=== PATIENT | female | born 1950 | race Caucasian/White ===

== ENCOUNTER → 2019-10-30 08:26 | Outpatient (BNVA) | payer MEDICARE, OTHER, SELFPAY | PROVIDERS: Family Provider Nurse Practitioner; PCP Nurse Practitioner; Visit Provider Nurse Practitioner | DX: E11.65 Type 2 diabetes mellitus with hyperglycemia (principal); Z79.4 Long term (current) use of insulin; E11.9 Type 2 diabetes mellitus without complications; N39.0 Urinary tract infection, site not specified | CPT/HCPCS: 80053; 80061; 81003; 82044; 83036 ==

== ENCOUNTER → 2020-01-27 09:07 | Outpatient (BNVA) | payer MEDICARE, OTHER, SELFPAY | PROVIDERS: Family Provider Nurse Practitioner; PCP Nurse Practitioner; Visit Provider Nurse Practitioner | DX: E11.65 Type 2 diabetes mellitus with hyperglycemia (principal); Z79.4 Long term (current) use of insulin | CPT/HCPCS: 80053; 81000; 83036 ==

== ENCOUNTER → 2020-06-07 11:47 | Outpatient (BNVA) | payer MEDICARE, OTHER, SELFPAY | PROVIDERS: Family Provider Nurse Practitioner; PCP Nurse Practitioner; Visit Provider Nurse Practitioner | DX: E11.65 Type 2 diabetes mellitus with hyperglycemia (principal); J98.01 Acute bronchospasm; Z79.4 Long term (current) use of insulin; Z79.899 Other long term (current) drug therapy | CPT/HCPCS: 80053; 80061; 81003; 83036; 87077; 87086; 87184 ==

== ENCOUNTER → 2020-08-23 08:13 | Outpatient (BNVA) | payer MEDICARE, OTHER, SELFPAY | PROVIDERS: Family Provider Nurse Practitioner; PCP Nurse Practitioner; Visit Provider Nurse Practitioner | DX: E11.65 Type 2 diabetes mellitus with hyperglycemia (principal); Z79.4 Long term (current) use of insulin; E78.2 Mixed hyperlipidemia; J98.01 Acute bronchospasm | CPT/HCPCS: 80053; 80061; 81000; 83036; 85025 ==

== ENCOUNTER → 2021-04-10 11:13 | Outpatient (BNVA) | payer MEDICARE, SELFPAY | PROVIDERS: Family Provider Nurse Practitioner; PCP Nurse Practitioner; Visit Provider Nurse Practitioner | DX: E11.65 Type 2 diabetes mellitus with hyperglycemia (principal); Z79.4 Long term (current) use of insulin; I10 Essential (primary) hypertension; E78.2 Mixed hyperlipidemia | CPT/HCPCS: 80053; 80061; 81000; 83036; 84443; 85025 ==

== ENCOUNTER → 2021-07-05 16:15 | Outpatient (BNVA) | payer MEDICARE, SELFPAY | PROVIDERS: Family Provider Nurse Practitioner; PCP Nurse Practitioner; Visit Provider Nurse Practitioner | DX: E11.65 Type 2 diabetes mellitus with hyperglycemia (principal); Z79.4 Long term (current) use of insulin | CPT/HCPCS: 80053; 80061; 81000; 83036; 84443; 85025 ==

== ENCOUNTER → 2022-01-02 09:38 | Outpatient (BNVA) | payer MEDICARE, SELFPAY | PROVIDERS: Family Provider Nurse Practitioner; PCP Nurse Practitioner; Visit Provider Nurse Practitioner | DX: E11.65 Type 2 diabetes mellitus with hyperglycemia (principal); E78.2 Mixed hyperlipidemia; J98.01 Acute bronchospasm; I10 Essential (primary) hypertension; Z79.4 Long term (current) use of insulin | CPT/HCPCS: 80053; 80061; 81000; 83036; 84443; 85025 ==

== ENCOUNTER → 2022-02-26 10:18 | Outpatient (BNVA) | payer MEDICARE, SELFPAY | PROVIDERS: Family Provider Nurse Practitioner; PCP Nurse Practitioner; Visit Provider Nurse Practitioner | DX: I10 Essential (primary) hypertension (principal); E11.65 Type 2 diabetes mellitus with hyperglycemia; Z79.4 Long term (current) use of insulin; J98.01 Acute bronchospasm; E78.2 Mixed hyperlipidemia; F41.9 Anxiety disorder, unspecified; E11.69 Type 2 diabetes mellitus with other specified complication; E66.9 Obesity, unspecified | CPT/HCPCS: 80053; 81000; 83036 ==

== ENCOUNTER → 2022-07-16 15:24 | Outpatient (BNVA) | payer MEDICARE, SELFPAY | PROVIDERS: Family Provider Nurse Practitioner; PCP Nurse Practitioner; Visit Provider Nurse Practitioner | DX: E11.65 Type 2 diabetes mellitus with hyperglycemia (principal); Z79.4 Long term (current) use of insulin; F41.9 Anxiety disorder, unspecified; I10 Essential (primary) hypertension; E78.2 Mixed hyperlipidemia; R46.81 Obsessive-compulsive behavior | CPT/HCPCS: 80053; 80061; 81000; 83036; 83721; 84443 ==

== ENCOUNTER → 2022-10-03 08:42 | Outpatient (BNVA) | payer MEDICARE, SELFPAY | PROVIDERS: Family Provider Nurse Practitioner; PCP Nurse Practitioner; Visit Provider Nurse Practitioner | DX: E11.65 Type 2 diabetes mellitus with hyperglycemia (principal); Z79.4 Long term (current) use of insulin | CPT/HCPCS: 80053; 80061; 81000; 82043; 83036; 84443 ==

== ENCOUNTER → 2022-12-26 14:54 | Outpatient (BNVA) | payer MEDICARE, SELFPAY | PROVIDERS: Family Provider Nurse Practitioner; PCP Nurse Practitioner; Visit Provider Nurse Practitioner | DX: E11.65 Type 2 diabetes mellitus with hyperglycemia (principal); Z79.4 Long term (current) use of insulin | CPT/HCPCS: 80053; 81000; 83036 ==

== ENCOUNTER → 2023-03-12 13:52 | Outpatient (BNVA) | payer MEDICARE, SELFPAY | PROVIDERS: Family Provider Nurse Practitioner; PCP Nurse Practitioner; Visit Provider Nurse Practitioner | DX: F41.9 Anxiety disorder, unspecified (principal); I10 Essential (primary) hypertension; E11.65 Type 2 diabetes mellitus with hyperglycemia; E78.2 Mixed hyperlipidemia; Z79.4 Long term (current) use of insulin; J98.01 Acute bronchospasm | CPT/HCPCS: 80053; 81000; 83036 ==

== ENCOUNTER 2023-08-05 18:11 | Inpatient (IN) | payer MEDICARE, SELFPAY ==
[2023-08-05] VITALS (7 sets, daily range): BP systolic 104–134; BP diastolic 58–89; PULSE 68–116; RESP 14–21; TEMP 36.6; O2SAT 95–100; BMI 30.2
--- NOTE | 2023-08-05 18:43 | W.ED.GENADLT ---
HPI - General Adult General: Chief complaint: General Medical Stated complaint: high bp and blood sugar Time Seen by Provider: 08/05/23 18:35 History of Present Illness: 72-year-old female presents emerged part with her family members. Family member states the patient initially presents for elevated blood pressure and elevated blood glucose levels. Family members state that the patient is a special needs patient and she is cared for by her 92-year-old mother. The patient advised her mother that she is not feeling well yesterday they did contact the patient's primary care provider and advised them that the patient's blood glucose and blood pressure is both elevated and per the patient's family member they were advised to give her additional doses of insulin. I rechecked the blood glucose yesterday and the blood glucose level had improved significantly but today has returned to an elevated level. Associated symptoms: Reports malaise Review of Systems General: Reports: 10 or more systems reviewed and unremarkable except in HPI and below Const: Reports: fatigue and malaise Endo: Reports: other (Elevated blood glucose level) PFSH ED PFSH: Medical History Anxiety Bronchospasm Cerebral palsied Diabetes mellitus with hyperglycemia, with long-term current use of insulin Essential (primary) hypertension Mixed hyperlipidemia Neurodevelopmental disorder Type 2 diabetes mellitus with obesity Surgical History History of hysterectomy Family History Brother Diabetes Hypertension Mother Hypertension Denies family history of Bleeding disorder Social History Smoking and tobacco/nicotine status: never used tobacco/nicotine Second hand smoke exposure: No Alcohol intake: never Substance/Drug Use: never Adopted: No Caregiver/support person: Yes Lives independently: No Household members: family Housing: House Marital status: Single Number of children: 0 service: No Current occupational status: disabled Pets and animals: Yes Do you think of yourself as: Straight/Heterosexual Current gender identity: Female Physical Exam Narrative: EXAM NARRATIVE: Constitutional: the patient appears well nourished and of normal development. Vital signs as documented. No acute distress at present. Alert and oriented-to person-developmentally delayed per the family members. She does appear to be at her baseline mental status per the family Head, eyes, ears, nose, mouth, throat: Normocephalic, atraumatic. Pupils-equal, round, reactive to light. No scleral icterus. Normal-appearing external ears. Normal appearing nasal turbinates, no drainage. No obvious oral lesions, posterior oropharynx without erythema or exudates. Neck: Supple, trachea is midline, no lymphadenopathy, no jugular venous distension, thyromegaly, or carotid bruits. Carotid upstrokes are brisk bilaterally. Lungs: clear to auscultation to all lung meadows. Symmetrical rise and fall of chest, no obvious signs of increased work of breathing at present. Cardiac: Regular rate and rhythm, positive S1, S2. No murmurs, rubs or gallops that I can appreciate Abdomen: Soft, non-tender to palpation, normal active bowel sounds to all quadrants. No palpable masses, no organomegaly and abdominal bruits. Extremities: 2+ pulses in the upper extremities that are equal bilaterally, 2+ pulses in the lower extremities that are equal bilaterally. Right lower leg does appear to be with 2+ lower extremity edema and obvious cellulitis to the right lower leg. There does appear to be a healing scar to the right anterior lower leg moves all extremities well, sensation to all extremities are noted. Skin: Warm, dry, intact. Course Vital Signs: Vital signs: Vital Signs Temperature 97.8 F 08/05/23 18:21 Pulse Rate 116 H 08/05/23 20:40 Respiratory Rate 16 08/05/23 20:40 Blood Pressure 134/89 08/05/23 20:40 Pulse Oximetry 98 08/05/23 20:40 Oxygen Delivery Me thod Room Air 08/05/23 20:40 MDM - General Adult Medical Decision Making Physical exam completed and documented, I will obtain a CBC, CMP, serum ketones as I suspect her elevated blood glucose level may be putting her at risk for diabetic ketoacidosis which is also exacerbated by her right lower leg cellulitis. Medical Records I reviewed the patient's medical records. Lab Data I reviewed the patient's lab results. 08/05/23 19:00 08/05/23 19:00 Radiology Impressions Chest X-Ray 08/05/23 18:48 IMPRESSION: No acute findings. Laboratory Results WBC 17.77 10^3/uL (3.29-11.43) H 08/05/23 19:00 RBC 4.85 10^6/uL (3.85-5.65) 08/05/23 19:00 Hgb 14.50 g/dL (11.27-16.99) 08/05/23 19:00 Hct 43.2 % (36-47) 08/05/23 19:00 MCV 89.1 fl (85-98) 08/05/23 19:00 MCH 29.9 pg (27-33) 08/05/23 19:00 MCHC 33.6 g/dL (30-55) 08/05/23 19:00 RDW 12.7 % (12.1-15.1) 08/05/23 19:00 Plt Count 310 10^3/cmm (157-399) 08/05/23 19:00 MPV 10.0 fL (7.4-10.4) 08/05/23 19:00 Neut % (Auto) 82.6 % 08/05/23 19:00 Lymph % (Auto) 5.0 % 08/05/23 19:00 [place] % (Auto) 11.3 % 08/05/23 19:00 Eos % (Auto) 0.0 % 08/05/23 19:00 Baso % (Auto) 0.2 % 08/05/23 19:00 Neut # (Auto) 14.70 10^3/uL (1.8-7.7) H 08/05/23 19:00 Lymph # (Auto) 0.9 10^3/uL (0.8-4.8) 08/05/23 19:00 [place] # (Auto) 2.0 10^3/uL (0.2-0.9) H 08/05/23 19:00 Eos # (Auto) 0.0 10^3/uL (0.0-0.8) 08/05/23 19:00 Baso # (Auto) 0.0 10^3/uL (0.0-0.1) 08/05/23 19:00 Nucleated RBC % (auto) 0 % 08/05/23 19:00 Nucleated RBCs # 0.0 /100WBC 08/05/23 19:00 Sodium 129 mmol/L (136-145) L 08/05/23 19:00 Potassium 3.7 mmol/L (3.5-5.1) 08/05/23 19:00 Chloride 89 mmol/L (98-107) L 08/05/23 19:00 Carbon Dioxide 13 mmol/L (22-29) L 08/05/23 19:00 Anion Gap 30.7 (5-19) H 08/05/23 19:00 BUN 36 mg/dL (8-23) H 08/05/23 19:00 Creatinine 1.2 mg/dL (0.5-0.9) H 08/05/23 19:00 GFR Calculation Not Reportable 08/05/23 19:00 Glucose 453 mg/dL (65-115) H 08/05/23 19:00 POC Glucose 404 mg/dL (70-110) H 08/05/23 18:44 Calculated Osmolality 296 mOsm/kg (285-295) H 08/05/23 19:00 Lactic Acid 2.0 mmol/L (0.5-2.2) 08/05/23 19:00 Calcium 11.3 mg/dL (8.5-10.5) H 08/05/23 19:00 Magnesium 2.3 mg/dL (1.7-2.3) 08/05/23 19:00 Total Bilirubin 0.3 mg/dL (0.15-1.2) 08/05/23 19:00 AST 10 U/L (0-32) 08/05/23 19:00 ALT 15 U/L (0-33) 08/05/23 19:00 Alkaline Phosphatase 158 U/L (35-105) H 08/05/23 19:00 Total Protein 8.4 g/dL (6.6-8.7) 08/05/23 19:00 Albumin 3.9 g/dL (3.5-5.2) 08/05/23 19:00 Globulin 4.5 g/dL (1.3-4.6) 08/05/23 19:00 Procalcitonin 7.49 ng/mL (0-0.5) H 08/05/23 19:00 Urine Color Yellow (Yellow) 08/05/23 21:41 Urine Appearance Sl hazy (CLEAR) A 08/05/23 21:41 Urine pH 5 (5-7) 08/05/23 21:41 Ur Specific [place] 1.020 (1.005-1.030) 08/05/23 21:41 Urine Protein 1+ (Negative) H 08/05/23 21:41 Urine Glucose (UA) 4+ (Normal) H 08/05/23 21:41 Urine Ketones 3+ (Negative) H 08/05/23 21:41 Urine Blood 2+ (Negative) H 08/05/23 21:41 Urine Nitrate Negative (Negative) 08/05/23 21:41 Urine Bilirubin 1+ (Negative) H 08/05/23 21:41 Urine Urobilinogen Norm mg/dL (Negative) 08/05/23 21:41 Ur Leukocyte Esterase Trace (Negative) H 08/05/23 21:41 Urine RBC 0-4 /hpf (0-2) H 08/05/23 21:41 Urine WBC 0-4 /hpf (0-5) H 08/05/23 21:41 Ur Squamous Epith Cells None /hpf (0-5) 08/05/23 21:41 Ur Transition Epith Cell 0-4 /hpf 08/05/23 21:41 Amorphous Sediment Not Reportable 08/05/23 21:41 Urine Bacteria 1+ /hpf (NONE) H 08/05/23 21:41 Coarse Granular Casts 5-10 /lpf H 08/05/23 21:41 Urine Mucus 1+ /hpf 08/05/23 21:41 Serum Ketones Positive (Negative) H 08/05/23 19:00 All radiology interpretation(s) finalized by discharge Critical Care Time Critical Care Time: Critical Care Time: Yes Total Critical Care Time: 60 Attestation: The patients was emergently evaluated as this patient's presentation and case had a high probability of a clinically significant, sudden, or life threatening deterioration of this patient's initial critical presentation or condition which required my full and direct attention, intervention and personal management. Discharge Plan Discharge Patient Disposition: Admitted As Inpatient Clinical Impression: Diabetic keto-acidosis, Diabetes mellitus with hyperglycemia, with long-term current use of insulin, Cellulitis of leg, right, Acute hyponatremia Condition: Stable Prescriptions: No Action mupirocin 2 % ointment 1 applic topical BID Qty: 22 0RF (DME) nebulizers Misc See Rx Instructions .ROUTE .MEDSUPPLY Qty: 1 0RF Rx Instructions: As directed bupropion HCl [Wellbutrin XL] 150 mg tablet extended release 24 hr 150 mg PO QAM Qty: 30 2RF chlorthalidone 25 mg tablet 25 mg PO DAILY Qty: 90 0RF Farxiga 10 mg tablet 10 mg PO DAILY Qty: 30 2RF escitalopram oxalate [Lexapro] 5 mg tablet 5 mg PO .at bedtime Qty: 90 0RF fenofibrate nanocrystallized [Tricor] 145 mg tablet 145 mg PO DAILY Qty: 90 0RF Levemir U-100 Insulin 100 unit/mL solution See Rx Instructions SUBCUT DAILY Qty: 30 2RF Rx Instructions: 100U subcutaneously daily; insulin lispro [Humalog U-100 Insulin] 100 unit/mL solution 10 unit SUBCUT TID Qty: 10 2RF lisinopril 40 mg tablet 40 mg PO DAILY Qty: 30 2RF metformin 1,000 mg tablet 1,000 mg PO BID Qty: 180 0RF metoprolol succinate [Toprol XL] 50 mg tablet extended release 24 hr 50 mg PO DAILY Qty: 90 0RF Mounjaro 7.5 mg/0.5 mL pen injector 7.5 mg SUBCUT .weekly Qty: 2 0RF albuterol sulfate 2.5 mg /3 mL (0.083 %) solution for nebulization 2.5 mg INHALATION TID PRN (Reason: bronchospasm) Qty: 300 5RF albuterol sulfate [Ventolin HFA] 90 mcg/actuation HFA aerosol inhaler 2 puff INHALATION Q6H PRN (Reason: shortness of breath or wheezing) Qty: 6.7 0RF terbinafine HCl 1 % aerosol,spray 1 spray topical .at bedtime Qty: 125 0RF clonidine HCl 0.1 mg tablet 0.1 mg PO BID Qty: 60 2RF (DME) FreeStyle Andreia 2 [place] Misc See Rx Instructions .ROUTE .MEDSUPPLY Qty: 1 0RF Rx Instructions: use 4-6 times day (DME) FreeStyle Andreia 2 Sensor Kit See Rx Instructions .ROUTE .MEDSUPPLY Qty: 2 11RF Rx Instructions: change every 14 days Referrals: Dunia Brizuela, FARM OPERATIONS TECHNICAL DIRECTOR-C [Primary Care Provider] - Coding Level of Care Code ED Generator Rebuilder for Chg Fwd
--- NOTE | 2023-08-05 18:48 | XRR_ITS ---
PROCEDURE INFORMATION: Exam: XR Chest Exam date and time: 08/05/2023 6:59 PM Age: 72 years old Clinical indication: Other: High BP; Additional info: Weakness/fatigue TECHNIQUE: Imaging protocol: Radiologic exam of the chest. Views: 1 view. COMPARISON: No relevant prior studies available. FINDINGS: Lungs: No consolidation. Pleural spaces: No large pleural effusion. No pneumothorax. Heart/Mediastinum: Unremarkable cardiomediastinal silhouette. Bones/joints: No acute abnormality. XR/XR chest 1V portable [id number] IMPRESSION: No acute findings.
[2023-08-05 19:00] LABS: Glucose Point of Care 404 mg/dL (70-110)
[2023-08-05 19:10] LABS: Basophils % 0.2 %; Hematocrit 43.2 % (36-47); Lymphocytes # 0.9 10^3/uL (0.8-4.8); Mean Corpuscular HGB Conc 33.6 g/dL (30-55); Mean Corpuscular Hemoglobin 29.9 pg (27-33); Mean Corpuscular Volume 89.1 fl (85-98); Monocytes % 11.3 %; Neutrophils % 82.6 %; Nucleated Red Blood Cells % 0 %; Platelet Count 310 10^3/cmm (157-399); Red Blood Count 4.85 10^6/uL (3.85-5.65); Red Cell Distribution Width 12.7 % (12.1-15.1); White Blood Count 17.77 10^3/uL (3.29-11.43)
[2023-08-05] MEDS: sodium chloride 0.9% 1,000 ML 999 ML IV ×2 (19:12→20:31)
[2023-08-05 19:30] LABS: Ketone (Acetest) Serum Positive (Negative)
[2023-08-05 19:42] LABS: Alanine Aminotransferase 15 U/L (0-33); Albumin Level 3.9 g/dL (3.5-5.2); Alkaline Phosphatase 158 U/L (35-105); Anion Gap 30.7 (5-19); Aspartate Amino Transferase 10 U/L (0-32); Blood Urea Nitrogen 36 mg/dL (8-23); Calcium 11.3 mg/dL (8.5-10.5); Carbon Dioxide 13 mmol/L (22-29); Chloride 89 mmol/L (98-107); Globulin 4.5 g/dL (1.3-4.6); Glucose 453 mg/dL (65-115); Magnesium 2.3 mg/dL (1.7-2.3); Osmolality Calculated 296 mOsm/kg (285-295); Potassium 3.7 mmol/L (3.5-5.1); Sodium 129 mmol/L (136-145); Total Bilirubin 0.3 mg/dL (0.15-1.2); Total Protein 8.4 g/dL (6.6-8.7)
[2023-08-05 19:48] LABS: Procalcitonin 7.49 ng/mL (0-0.5)
[2023-08-05] MEDS: cefTRIAXone 1,000 MG in sodium chloride 0.9% (plus) 50 ML 100 MG IV (20:31)
[2023-08-05] MEDS: insulin regular-human 100 units/1 mL 10 UNIT IVP (20:32)
[2023-08-05 22:01] LABS: Add Urine Microscopic? YES; Bilirubin Urine 1+ (Negative); Blood Urine 2+ (Negative); Glucose Urine UA 4+ (Normal); Ketones Urine 3+ (Negative); Leukocyte Esterase Urine Trace (Negative); Nitrate Urine Negative (Negative); Protein Urine 1+ (Negative); Urine Appearance SL Hazy (CLEAR); Urine Color Yellow (Yellow); Urobilinogen Urine Norm (Negative); pH Urine 5 (5-7)
[2023-08-05 22:02] LABS: Bacteria Urine 1+ /hpf; Mucus Urine 1+ /hpf; RBC Urine 0-4 /hpf (0-2); Transitional Epi Cells Urine 0-4 /hpf; WBC Urine 0-4 /hpf (0-5)
[2023-08-05] MEDS: ondansetron 2 mg/ML SDV 2 mL 4 MG IVP (22:02)
[2023-08-05 22:03] LABS: Add Urine Culture? No
[2023-08-05 22:19] LABS: Glucose Point of Care 356 mg/dL (70-110)
--- NOTE | 2023-08-05 23:04 | P.HP_ITS ---
Providers/Chief Complaint 2 Primary Care Provider: MARILYN Ramirez Chief Complaint: high bp and blood sugar History of Present Illness Dhaar Harvey is a 72 year old female with cerebral palsy, Neurodevelopmental disorder, Type 2 diabetes mellitus, HTN , Brought to the emergency room by her 94-year-old mother today due to High blood sugars at home over the past 3 days. Mother states that patient has been feeling unwell, nauseous, has had a poor appetite. She denies any fever or chills. Patient has chronic lower extremity edema but her right lower extremity is currently more swollen and warm erythematous compared to the left side. There is no complaints of any URI type symptoms, cough dyspnea or expectoration. There has been no recent change in her insulin dosing. Patient typically gives herself her insulin injections. Review of Systems 2 General: Reports: ROS unobtainable due to medical condition Medications/Allergies Home Medications Medication Instructions Recorded Confirmed Last Taken Type mupirocin 2 % topical ointment 1 applic topical BID #22 grams 01/02/22 03/12/23 Unknown Rx nebulizers #1 ea 01/02/22 03/12/23 Unknown Rx flash glucose scanning reader #1 ea 10/03/22 03/12/23 Unknown Rx (FreeStyle Andreia 2 [place]) flash glucose sensor (FreeStyle #2 ea 10/03/22 03/12/23 Unknown Rx Andreia 2 Sensor kit) albuterol sulfate 2.5 mg/3 mL 2.5 mg (3 mL) inhalation TID PRN 03/12/23 03/12/23 Unknown Rx (0.083 %) solution for nebulization bronchospasm #300 mL albuterol sulfate 90 mcg/actuation 2 puff inhalation Q6H PRN 03/12/23 03/12/23 Unknown Rx aerosol inhaler (Ventolin HFA) shortness of breath or wheezing #6.7 grams bupropion HCl 150 mg 24 hr tablet, 150 mg PO QAM #30 tabs 03/12/23 03/12/23 Unknown Rx extended release (Wellbutrin XL) chlorthalidone 25 mg tablet 25 mg PO DAILY #90 tabs 03/12/23 03/21/23 Unknown Rx clonidine HCl 0.1 mg tablet 0.1 mg PO BID #60 tabs 03/12/23 03/12/23 Unknown Rx dapagliflozin propanediol 10 mg 10 mg PO DAILY #30 tabs 03/12/23 03/12/23 Unknown Rx tablet (Farxiga) escitalopram oxalate 5 mg tablet 5 mg PO .at bedtime #90 tabs 03/12/23 03/12/23 Unknown Rx (Lexapro) fenofibrate nanocrystallized 145 145 mg PO DAILY #90 tabs 03/12/23 03/12/23 Unknown Rx mg tablet (Tricor) insulin detemir U-100 100 unit/mL See Rx Instructions SUBCUT DAILY 03/12/23 03/12/23 Unknown Rx subcutaneous solution (Levemir #30 mL U-100 Insulin) insulin lispro 100 unit/mL 10 unit (0.1 mL) SUBCUT TID #10 mL 03/12/23 03/12/23 Unknown Rx subcutaneous solution (Humalog U-100 Insulin) lisinopril 40 mg tablet 40 mg PO DAILY #30 tabs 03/12/23 03/12/23 Unknown Rx metformin 1,000 mg tablet 1,000 mg PO BID #180 tabs 03/12/23 03/12/23 Unknown Rx metoprolol succinate 50 mg 50 mg PO DAILY #90 tabs 03/12/23 03/12/23 Unknown Rx tablet,extended release 24 hr (Toprol XL) terbinafine HCl 1 % topical spray 1 spray topical .at bedtime #125 mL 03/12/23 03/12/23 Unknown Rx tirzepatide 7.5 mg/0.5 mL 7.5 mg (0.5 mL) SUBCUT .weekly #2 03/12/23 03/12/23 Unknown Rx subcutaneous pen injector mL (Mounjaro) Allergies Allergy/AdvReac Type Severity Reaction Status Date / Time No Known Allergies Allergy Verified 08/05/23 18:14 PFSH Acute 2 PFSH: Medical History Diabetes mellitus with hyperglycemia, with long-term current use of insulin Essential (primary) hypertension Type 2 diabetes mellitus with obesity Bronchospasm Anxiety Mixed hyperlipidemia Cerebral palsied Neurodevelopmental disorder Surgical History History of hysterectomy Family History Brother Diabetes Hypertension Mother Hypertension Denies family history of Bleeding disorder Social History Smoking and tobacco/nicotine status: never used tobacco/nicotine Second hand smoke exposure: No Alcohol intake: never Substance/Drug Use: never Adopted: No Caregiver/support person: Yes Lives independently: No Household members: family Housing: House Marital status: Single Number of children: 0 service: No Current occupational status: disabled Pets and animals: Yes Do you think of yourself as: Straight/Heterosexual Current gender identity: Female Vitals/I&O/Wt Last Vital Signs Temp 97.8 F 08/05/23 18:21 Pulse 115 H 08/05/23 22:05 Resp 21 H 08/05/23 22:05 BP 109/58 08/05/23 22:33 Pulse Ox 98 08/05/23 22:33 O2 Del Method Room Air 08/05/23 22:33 08/05/23 08/05/23 08/06/23 14:59 22:59 06:59 Intake Total 1050 / 1050 Balance 1050 / 1050 Weight last 48 hrs Weight 74.843 kg Physical Exam 2 Narrative: General: No acute distress, AO x3 HEENT: PERRLA, pupils bilaterally equal and reactive, pallors not present Chest: Normal vesicular breath sounds, no added sounds, equal good air entry bilaterally CVS: S1-S2 regular, no murmurs, no tachycardia, no gallops, no rubs Abdomen: Soft, nontender, no organomegaly, bowel sounds present Neuro: No focal deficits, no facial deformity Extremities: RLE cellulitis Data 08/05/23 19:00 08/06/23 01:06 Other Labs: [facility] [address] [place] [address] XRay Report Signed Patient: Dhara Harvey Unit #: [id number] : 1950 Age/Sex: 72 / F ADM Date: 08/05/23 Loc: ER Room/Bed: Attending Dr: Ordering Provider/Ordering MD: Mandeep Fields MD Date of Service: 08/05/23 Procedure(s): XR chest 1V portable [id number] Accession Number(s): [id number] Report Number: [id number] PROCEDURE INFORMATION: Exam: XR Chest Exam date and time: 08/05/2023 6:59 PM Age: 72 years old Clinical indication: Other: High BP; Additional info: Weakness/fatigue TECHNIQUE: Imaging protocol: Radiologic exam of the chest. Views: 1 view. COMPARISON: No relevant prior studies available. FINDINGS: Lungs: No consolidation. Pleural spaces: No large pleural effusion. No pneumothorax. Heart/Mediastinum: Unremarkable cardiomediastinal silhouette. Bones/joints: No acute abnormality. XR/XR chest 1V portable [id number] IMPRESSION: No acute findings. A&P Assessment and plan (1) Diabetic keto-acidosis: Diabetic ketoacidosis: Start patient on insulin drip as per DKA/HHS protocol with target blood sugars between 100-130 normal saline at 100cc/h. We will switch to D5 NS once blood sugar less than 250. Monitor BMP every 4 hours. Once potassium less than 4 we will add 20 mg of potassium to IV fluids. Monitor saturations. Maintain over 90%. Transition to sliding scale and long-acting insulin once anion gap resolves. Qualifiers: Diabetes mellitus complication detail: without coma Diabetes mellitus type: type 1 Qualified Code(s): E10.10 - Type 1 diabetes mellitus with ketoacidosis without coma (2) Cellulitis of leg, right: Start empiric abx treatment with Ceftriaxone and vancomycin check blood culture monitor for response Plan Dvt ppx : lovenox 40mg s/c Full code Attestations 2 Medical Necessity Statement*: Globin 2 midnight admission is anticipated for above defined care Coding Level of Care Code Acute Code for Chg Fwd High MDM includes number and complexity of problems actively addressed during encounter, amount and/or complexity of data reviewed/ordered and described risk of complication, morbidity or mortality of management as documented Diagnoses Diabetic keto-acidosis E10.10 Diabetes mellitus complication detail: without coma Diabetes mellitus type: type 1 Cellulitis of leg, right L03.115
[2023-08-06] VITALS (49 sets, daily range): BP systolic 71–130; BP diastolic 42–83; PULSE 72–128; RESP 14–23; TEMP 36.3–37.3; O2SAT 84–100; BMI 28.8
--- NOTE | 2023-08-06 01:00 | PC.NURSE ---
[facility] @ 0100. Rounding with patient in room, she is up to bedside commode with 2 person assist. Pt still wearing regular clothing and tells this nurse when asked that she will not get a gown on. I want to wear my clothes . Pt asked for food and something to drink. Pt and her mother have been informed that she is NPO. I have explained what NPO means to the patient and mother.
[2023-08-06] MEDS: enoxaparin 40 mg/0.4 mL Syringe SUBCUT (01:33)
[2023-08-06 01:35] LABS: Glucose Point of Care 300 mg/dL (70-110)
[2023-08-06 01:45] LABS: Blood Urea Nitrogen 39 mg/dL (8-23); Calcium 10.6 mg/dL (8.5-10.5); Carbon Dioxide 10 mmol/L (22-29); Chloride 99 mmol/L (98-107); Glucose 314 mg/dL (65-115); Osmolality Calculated 299 mOsm/kg (285-295); Sodium 134 mmol/L (136-145)
[2023-08-06 01:47] LABS: Anion Gap 28.9 (5-19); Potassium 3.9 mmol/L (3.5-5.1)
[2023-08-06 02:25] LABS: Glucose Point of Care 314 mg/dL (70-110)
--- NOTE | 2023-08-06 02:49 | PC.NURSE ---
Addendum entered by Flor Palma RN 08/06/23 02:59: Pt mother states the pt had a legal paper listing her guardian, but that guardian recently . Pt mother states she does not have a phone or phone number, but she had a phone in her hand and stated Olya is the only person in the phone . Right leg of pt is very red and warm. Pt mother states pt has not had a red leg or any injury. Mother stated pt leg has only been that red for a day. Mother denies fever or other flu-like symptoms, but then stated pt is breathing that way because she has a snotty nose . Mother also told this nurse that pt normally walks without any assistive devices, but today she was unable to get up without assistance. ER nurse stated it took 2 nurses to assist pt to bedside commode and pt was very unstable. Mother states pt receives no home health help, but mother uses TWO canes to ambulate herself, and might have trouble remembering things. Mother repeatedly told this nurse the same information during admission assessment (mother stated we eat out a lot 4 times in a 10 minute period). Original Note: Upon arrival to unit, pt was visibly anxious and unwilling to change out of her clothing and into a gown. Pt is intellectually disabled and speaks more as if she is a small child - in short sentences or one to two word phrases. Pt mother answered admission questions. Pt mother was brought in to pt room by wheelchair. Pt mother seemed a bit confused herself. Pt mother states she is primary and sole registration representative of pt. Pt has small scuff on right cheek. Mother states pt tripped in a parking lot and is unable to catch herself
[2023-08-06] MEDS: insulin regular-human 250 UNIT in sodium chloride 0.9% 250 ML 7.07 UNIT IV (02:54)
[2023-08-06 03:04] LABS: Glucose Point of Care 314 mg/dL (70-110)
[2023-08-06 04:11] LABS: Glucose Point of Care 249 mg/dL (70-110)
[2023-08-06] MEDS: vancomycin 1,000 MG in sodium chloride 0.9% 250 ML 250 MG IV (04:31)
[2023-08-06 05:02] LABS: Glucose Point of Care 247 mg/dL (70-110)
[2023-08-06 05:02] LABS: Glucose Point of Care 253 mg/dL (70-110)
[2023-08-06 05:31] LABS: Anion Gap 21.4 (5-19); Blood Urea Nitrogen 37 mg/dL (8-23); Calcium 10.1 mg/dL (8.5-10.5); Carbon Dioxide 15 mmol/L (22-29); Chloride 104 mmol/L (98-107); Glucose 279 mg/dL (65-115); Osmolality Calculated 303 mOsm/kg (285-295); Potassium 3.4 mmol/L (3.5-5.1); Sodium 137 mmol/L (136-145)
[2023-08-06] MEDS: dextrose 5%-sod chloride 0.9% 1,000 ML 100 ML IV (05:43)
[2023-08-06 05:45] LABS: Estmated Average Glucose 407; Hemoglobin A1C 15.8 % (4.0-6.0)
[2023-08-06 05:56] LABS: Glucose Point of Care 222 mg/dL (70-110)
[2023-08-06 07:37] LABS: Glucose Point of Care 182 mg/dL (70-110)
--- NOTE | 2023-08-06 08:02 | PC.PHAR ---
pt and guardian both state pt is taking no other medications except the insulins. pt has had several diabetes medications and bp medicines prescribed in the past. 08/06/23
--- NOTE | 2023-08-06 08:15 | USCV_ITS ---
Dhara Harvey Age: 72 Gender: F : 1950 Exam Date: 08/06/2023 08:50 Ordering Phys: Eyal Ariza MD Technologist: JEAN-PAUL Exam Location: [facility] [place] Indication: SWELLING AND DISCOLORATION HISTORY: Lower extremity swelling. Lower extremity edema. PROCEDURES: Venous duplex imaging was performed in bilateral lower extremities. The following venous structures were evaluated: common femoral vein, profunda vein, proximal portion of the greater saphenous vein, superficial femoral vein, and the popliteal vein. In addition, the posterior tibial and peroneal trunk were evaluated. Serial compression, augmentation maneuvers, and spectral Doppler flow evaluation were performed. FINDINGS: No evidence of DVT seen in any vessel visualized at this time. CONCLUSIONS No evidence of right lower extremity DVT. No evidence of left lower extremity DVT. Michael Burgess MD (Electronically Signed) Final Date: 06 August 2023 09:19 S
[2023-08-06] MEDS: lidocaine 1% 5 ML in potassium chloride premix 100 ML 26.25 ML IV (08:36)
[2023-08-06] MEDS: pantoprazole DR 40 mg Tablet PO (08:43)
[2023-08-06 08:57] LABS: Anion Gap 18.1 (5-19); Blood Urea Nitrogen 32 mg/dL (8-23); Calcium 10.2 mg/dL (8.5-10.5); Carbon Dioxide 16 mmol/L (22-29); Chloride 106 mmol/L (98-107); Glucose 199 mg/dL (65-115); Osmolality Calculated 296 mOsm/kg (285-295); Potassium 3.1 mmol/L (3.5-5.1); Sodium 137 mmol/L (136-145)
[2023-08-06 09:05] LABS: Glucose Point of Care 176 mg/dL (70-110)
[2023-08-06 09:59] LABS: Glucose Point of Care 180 mg/dL (70-110)
[2023-08-06] MEDS: acetaminophen 325 mg Tablet 650 MG PO (10:21)
[2023-08-06 11:04] LABS: Glucose Point of Care 181 mg/dL (70-110)
[2023-08-06 12:11] LABS: Glucose Point of Care 241 mg/dL (70-110)
[2023-08-06 12:48] LABS: Iron 17 ug/dL (37-145); Total Iron Binding Capacity 188 mcg/dl; Unsaturated Iron Binding 171 ug/dL (112-347); Vitamin B12 1141 pg/mL (232-1245)
[2023-08-06 13:05] LABS: Glucose Point of Care 238 mg/dL (70-110)
[2023-08-06 14:15] LABS: Glucose Point of Care 275 mg/dL (70-110)
--- NOTE | 2023-08-06 14:37 | P.PN_ITS ---
Subjective 2 Subjective: Admitted overnight. H&P and labs appreciated. Seen with multiple family members including mother at bedside. Patient is awake and alert but seems confused, at baseline as per her mentation. Remains on room air. Currently on D5 NS at 75 cc/h and insulin drip at 1. Blood work from earlier today morning continues to show anion gap Vitals/I&O/Wt Last Vital Signs Temp 98.3 F 08/06/23 12:00 Pulse 99 08/06/23 14:00 Resp 17 08/06/23 14:00 BP 92/44 08/06/23 14:00 Pulse Ox 97 08/06/23 14:00 O2 Del Method Room Air 08/06/23 01:20 08/05/23 08/06/23 08/06/23 22:59 06:59 14:59 Intake Total 1050 / 1050 1271.564 / 2321.564 28.533 / 28.533 Output Total 400 / 400 Balance 1050 / 1050 871.564 / 1921.564 28.533 / 28.533 Weight last 48 hrs Weight 71.5 kg Weight 71.5 kg Weight 74.843 kg Physical Exam 2 Narrative: General: No acute distress, AO x 1-2, confused, at baseline mentation, dehydrated HEENT: PERRLA, pupils bilaterally equal and reactive, pallors not present Chest: Normal vesicular breath sounds, no added sounds, equal good air entry bilaterally CVS: S1-S2 regular, no murmurs, no tachycardia, no gallops, no rubs Abdomen: Soft, nontender, no organomegaly, bowel sounds present Neuro: No focal deficits, no facial deformity Extremities: RLE cellulitis Data 08/05/23 19:00 08/06/23 08:10 Micro: Microbiology 08/05/23 21:41 Bacterial Antigens - Final Urine Kidney A&P Assessment and plan (1) Diabetic keto-acidosis: Keep NPO. Continue with insulin drip. Switch fluid to D5 NS at 150 cc/h. If needed we will switch to D10. Monitor BMP every 6 hours. Will continue insulin drip till anion gap closes. Monitor potassium. Replete as needed. Keep potassium around 4, magnesium around 2. Check blood sugars every hour A1c noted to be more than 15. After family member patient is on 50 units of Levemir, insulin 10 units premeals and a short which she takes weekly though she they are not able to remember the name. Patient would most likely need much higher insulin on discharge. Will also give endocrine referral. Switch to Levemir and Humalog once anion gap closes. Qualifiers: Diabetes mellitus complication detail: without coma Diabetes mellitus type: type 1 Qualified Code(s): E10.10 - Type 1 diabetes mellitus with ketoacidosis without coma (2) Cellulitis of leg, right: Check lower limb Dopplers to rule out DVT. Follow-up blood cultures, bacterial antigen negative. Continue with IV vancomycin. On review of culture patient has history of UTI with Pseudomonas we will switch from ceftriaxone to cefepime. IV fluids as above. Maintain mean artery pressure over 65. Omycin Plan Hyponatremia: Pseudohyponatremia in setting of hyperglycemia. Monitor regularly. Full code. Discussed in detail with patient's mother and family member at bedside. Patient's mother will be the DPOA. Family also requesting further DPOA paperwork in which they want to make patient niece secondary DPOA. N.p.o. Protonix for PUD prophylaxis Lovenox for DVT prophylaxis Discharge plan: Plan to discharge home with possible home health once DKA resolves. Attestations 2 Medical Necessity Statement*: Requires further hospitalization for management of DKA patient with severe uncontrolled type 2 diabetes mellitus, cellulitis of right lower lobe Critical Care Time: The high probability of a clinically significant, sudden or life threatening deterioration of the patient's [endocrine, ID] system(s) required my full and direct attention, intervention and personal management. The critical care time is as shown. This time is in addition to time spent performing any reported procedures but includes the following: [x] Data and vital sign review and interpretation [x] Patient assessment, examination and intervention [x] Documentation [x] Medication orders and management Critical Care Time (min): 60 Coding Level of Care Code Critical Care >/= 30 minutes Critical care time (in minutes): 60 The high probability of a clinically significant, sudden or life threatening deterioration, as referenced in this documentation, required my full and direct attention, intervention and personal management. The critical care time shown is in addition to time spent performing any reported separately billable procedures and includes the following: [x] Data and vital sign review and interpretation [x ] Patient assessment, examination and intervention [x] Medication orders and management [x] Patient/Family updates as able [x] Care Coordination and Documentation. Other Coding Information This patient has a high probability of clinically significant, sudden or life threatening deterioration of the patient's (neurological/pulmonary/cardiac/renal/ID/endocrine) systems required my full, direct attention, the highest level of physician preparedness for urgent intervention and personal management. I managed/supervised life or organ supporting interventions that required frequent physician assessment. I devoted my full attention in the ICU to the direct care of this patient for the period of time indicated above. Time I spent with family or surrogate(s) is included only if the patient was incapable of providing necessary information or participating in decision making. This time includes the following services provided: Telemetry review Hemodynamic interpretation, assessment and management Review and interpretation of CXR Review and interpretation of lab values Review and interpretation of microbiologic data and culture results Review of medications and administration Review and interpretation of Nutrition requirements and management Discussion of management with other consultants and services Clinical update to family members Diagnoses Diabetic keto-acidosis E10.10 Diabetes mellitus complication detail: without coma Diabetes mellitus type: type 1 Cellulitis of leg, right L03.115
[2023-08-06] MEDS: dextrose 5%-sod chloride 0.9% 1,000 ML 150 ML IV ×2 (14:57→21:54)
[2023-08-06 15:05] LABS: Glucose Point of Care 262 mg/dL (70-110)
[2023-08-06] MEDS: cefepime 1,000 MG in sodium chloride 0.9% (plus) 50 ML 100 MG IV (15:50)
[2023-08-06 16:10] LABS: Glucose Point of Care 269 mg/dL (70-110)
[2023-08-06 16:45] LABS: Blood Urea Nitrogen 24 mg/dL (8-23); Calcium 9.9 mg/dL (8.5-10.5); Carbon Dioxide 19 mmol/L (22-29); Chloride 109 mmol/L (98-107); Glucose 277 mg/dL (65-115); Osmolality Calculated 302 mOsm/kg (285-295); Sodium 139 mmol/L (136-145)
[2023-08-06 16:46] LABS: Anion Gap 14.6 (5-19); Potassium 3.6 mmol/L (3.5-5.1)
[2023-08-06 17:17] LABS: Glucose Point of Care 294 mg/dL (70-110)
[2023-08-06 18:02] LABS: Glucose Point of Care 242 mg/dL (70-110)
[2023-08-06 19:39] LABS: Glucose Point of Care 238 mg/dL (70-110)
[2023-08-06 20:05] LABS: Glucose Point of Care 220 mg/dL (70-110)
[2023-08-06 21:11] LABS: Glucose Point of Care 190 mg/dL (70-110)
[2023-08-06 21:50] LABS: Glucose Point of Care 156 mg/dL (70-110)
[2023-08-06 22:47] LABS: Anion Gap 10.1 (5-19); Blood Urea Nitrogen 17 mg/dL (8-23); Calcium 9.6 mg/dL (8.5-10.5); Carbon Dioxide 21 mmol/L (22-29); Chloride 114 mmol/L (98-107); Glucose 171 mg/dL (65-115); Osmolality Calculated 300 mOsm/kg (285-295); Potassium 3.1 mmol/L (3.5-5.1); Sodium 142 mmol/L (136-145)
[2023-08-06 22:57] LABS: Glucose Point of Care 200 mg/dL (70-110)
[2023-08-07] VITALS (46 sets, daily range): BP systolic 114–186; BP diastolic 41–106; PULSE 86–114; RESP 13–29; TEMP 36.7–37.2; O2SAT 93–100
[2023-08-07 00:11] LABS: Glucose Point of Care 221 mg/dL (70-110)
[2023-08-07] MEDS: lidocaine 1% 5 ML in potassium chloride premix 100 ML 26.25 ML IV (01:07)
[2023-08-07] MEDS: enoxaparin 40 mg/0.4 mL Syringe SUBCUT (01:07)
[2023-08-07 01:11] LABS: Glucose Point of Care 239 mg/dL (70-110)
[2023-08-07] MEDS: insulin glargine 100 units/1 mL 25 UNIT SUBCUT ×2 (01:11→10:21)
--- NOTE | 2023-08-07 01:43 | PC.NURSE ---
Hospitalist notified of closed anion gap 10.1, Bicarb of 21, K+ of 3.1. Order for 25 lantus now received as well as to stop insulin drip in one hour. Patient tolerating oral intake well. 40meq Krider administered. Patient repeatedly asks about going home. Reorientation provided.
[2023-08-07 02:07] LABS: Glucose Point of Care 351 mg/dL (70-110)
[2023-08-07 03:15] LABS: Glucose Point of Care 295 mg/dL (70-110)
[2023-08-07] MEDS: cefepime 1,000 MG in sodium chloride 0.9% (plus) 50 ML 100 MG IV ×2 (03:24→15:03)
[2023-08-07 04:30] LABS: Basophils % 0.1 %; Hematocrit 34.1 % (36-47); Lymphocytes # 0.8 10^3/uL (0.8-4.8); Lymphocytes % 9.3 %; Mean Corpuscular HGB Conc 31.7 g/dL (30-55); Mean Corpuscular Hemoglobin 29.8 pg (27-33); Mean Corpuscular Volume 94.2 fl (85-98); Monocytes % 11.3 %; Neutrophils # 7.05 10^3/uL (1.8-7.7); Neutrophils % 78.5 %; Nucleated Red Blood Cells % 0 %; Platelet Count 171 10^3/cmm (157-399); Red Blood Count 3.62 10^6/uL (3.85-5.65); Red Cell Distribution Width 13.2 % (12.1-15.1); White Blood Count 8.97 10^3/uL (3.29-11.43)
[2023-08-07] MEDS: vancomycin 1,000 MG in sodium chloride 0.9% 250 ML 250 MG IV (04:44)
[2023-08-07] MEDS: acetaminophen 325 mg Tablet 650 MG PO (04:46)
[2023-08-07 04:50] LABS: Chol HDL Ratio 5.05 mg/dL (0.0-4.40); Cholesterol 192 mg/dL (0-200); HDL Cholesterol 38 mg/dL (60-100); LDL Cholesterol Calculated 120 mg/dL (50-129); Magnesium 1.9 mg/dL (1.7-2.3); Triglycerides 169 mg/dL (0-150); VLDL Cholestrol Calculation 34 mg/dL (0-30)
[2023-08-07 04:52] LABS: Alanine Aminotransferase 9 U/L (0-33); Albumin Level 2.3 g/dL (3.5-5.2); Alkaline Phosphatase 94 U/L (35-105); Anion Gap 13.4 (5-19); Aspartate Amino Transferase 9 U/L (0-32); Blood Urea Nitrogen 14 mg/dL (8-23); Calcium 9.1 mg/dL (8.5-10.5); Carbon Dioxide 18 mmol/L (22-29); Chloride 109 mmol/L (98-107); Globulin 3.3 g/dL (1.3-4.6); Glucose 320 mg/dL (65-115); Osmolality Calculated 297 mOsm/kg (285-295); Potassium 3.4 mmol/L (3.5-5.1); Sodium 137 mmol/L (136-145); Total Bilirubin 0.2 mg/dL (0.15-1.2); Total Protein 5.6 g/dL (6.6-8.7)
[2023-08-07 05:14] LABS: Folate Level 6.3 ng/mL (4.8-37.3)
[2023-08-07 07:25] LABS: Glucose Point of Care 293 mg/dL (70-110)
[2023-08-07] MEDS: pantoprazole DR 40 mg Tablet PO (08:09)
[2023-08-07] MEDS: insulin lispro 100 unit/1 mL SUBCUT ×4 (08:09→23:15)
[2023-08-07 10:26] LABS: Glucose Point of Care 263 mg/dL (70-110)
[2023-08-07 11:16] LABS: Glucose Point of Care 255 mg/dL (70-110)
[2023-08-07] MEDS: sodium chloride 0.9% 1,000 ML 75 ML IV (11:57)
--- NOTE | 2023-08-07 14:14 | P.PN_ITS ---
Subjective 2 Subjective: No acute events overnight. Seen with multiple family members at bedside. Patient is at baseline mentation. Overnight insulin drip was discontinued and transitioned over to Lantus and Premeal insulins. Vitals/I&O/Wt Last Vital Signs Temp 98.3 F 08/07/23 11:21 Pulse 96 08/07/23 12:00 Resp 14 08/07/23 12:00 BP 138/77 08/07/23 12:00 Pulse Ox 98 08/07/23 12:00 O2 Del Method Nasal Cannula 08/07/23 12:00 08/06/23 08/07/23 08/07/23 22:59 06:59 14:59 Intake Total 1090.384 / 2223.917 2269.461 / 4493.378 250 / 250 Output Total 1000 / 1000 2000 / 3000 200 / 200 Balance 90.384 / 1223.917 269.461 / 1493.378 50 / 50 Weight last 48 hrs Weight 74.843 kg Weight 71.5 kg Weight 71.5 kg Weight 74.843 kg Physical Exam 2 Narrative: General: No acute distress, AO x 1-2, confused, at baseline mentation, dehydrated HEENT: PERRLA, pupils bilaterally equal and reactive, pallors not present Chest: Normal vesicular breath sounds, no added sounds, equal good air entry bilaterally CVS: S1-S2 regular, no murmurs, no tachycardia, no gallops, no rubs Abdomen: Soft, nontender, no organomegaly, bowel sounds present Neuro: No focal deficits, no facial deformity Extremities: RLE cellulitis Data 08/07/23 04:07 08/07/23 04:07 Micro: Microbiology 08/05/23 21:41 Bacterial Antigens - Final Urine Kidney A&P Assessment and plan (1) Diabetic keto-acidosis: DKA resolved. A1c more than 15. Takes 50 units of Lantus at home along with Premeal insulins. Dietitian consult Carb consistent diet Normal saline at 75 cc/h Repeat BMP in evening. Lantus 40 units twice daily, insulin sliding scale at moderate dose protocol Patient will need endocrine referral on discharge. Qualifiers: Diabetes mellitus complication detail: without coma Diabetes mellitus type: type 1 Qualified Code(s): E10.10 - Type 1 diabetes mellitus with ketoacidosis without coma (2) Cellulitis of leg, right: Lower limb Dopplers negative. Blood cultures so far negative. MRSA swab pending. Bacterial antigen negative. Check lower limb Dopplers to rule out DVT. Follow-up blood cultures, bacterial antigen negative. Continue with IV vancomycin, cefepime. Plan Hyponatremia: Pseudohyponatremia in setting of hyperglycemia. Monitor regularly. Full code. Discussed in detail with patient's mother and family member at bedside. Patient's mother will be the DPOA. Family also requesting further DPOA paperwork in which they want to make patient niece secondary DPOA. N.p.o. Protonix for PUD prophylaxis Lovenox for DVT prophylaxis Transfer to [facility] floor. Discharge plan: Plan to discharge home with possible home health within next 24 hours. Attestations 2 Medical Necessity Statement*: Requires further hospitalization for management of resolving DKA while outpatient insulin dose is adjusted Diagnoses Diabetic keto-acidosis E10.10 Diabetes mellitus complication detail: without coma Diabetes mellitus type: type 1 Cellulitis of leg, right L03.115
[2023-08-07 17:07] LABS: Glucose Point of Care 208 mg/dL (70-110)
[2023-08-07] MEDS: insulin glargine 100 units/1 mL 40 UNIT SUBCUT (18:07)
[2023-08-07 18:20] LABS: Anion Gap 15.2 (5-19); Blood Urea Nitrogen 10 mg/dL (8-23); Carbon Dioxide 20 mmol/L (22-29); Chloride 105 mmol/L (98-107); Creatinine Clr Calc Pharmacy 59.3201; Glucose 255 mg/dL (65-115); Osmolality Calculated 292 mOsm/kg (285-295); Potassium 3.2 mmol/L (3.5-5.1); Sodium 137 mmol/L (136-145)
--- NOTE | 2023-08-07 19:59 | PC.NURSE ---
Transfer Patient transferred to [facility] bed 264 via wheelchair. All belongings sent with patient at time of transfer, family member with patient as well. Receiving nurse at bedside.
[2023-08-07 23:12] LABS: Glucose Point of Care 215 mg/dL (70-110)
[2023-08-08] MEDS: sodium chloride 0.9% 1,000 ML 75 ML IV (01:41)
[2023-08-08] MEDS: enoxaparin 40 mg/0.4 mL Syringe SUBCUT (01:41)
[2023-08-08] MEDS: cefepime 1,000 MG in sodium chloride 0.9% (plus) 50 ML 100 MG IV (02:44)
[2023-08-08] MEDS: acetaminophen 325 mg Tablet 650 MG PO (03:31)
[2023-08-08 03:42] VITALS: BP 148/75; PULSE 92; RESP 16; TEMP 36.6; O2SAT 97
[2023-08-08] MEDS: vancomycin 1,000 MG in sodium chloride 0.9% 250 ML 250 MG IV (03:56)
[2023-08-08 05:58] VITALS: BMI 31.1
[2023-08-08 06:00] VITALS: PULSE 79
[2023-08-08 06:06] LABS: Basophils % 0.2 %; Eosinophils % 0.1 %; Hematocrit 31.3 % (36-47); Lymphocytes # 1.1 10^3/uL (0.8-4.8); Lymphocytes % 11.5 %; Mean Corpuscular HGB Conc 32.9 g/dL (30-55); Mean Corpuscular Hemoglobin 29.8 pg (27-33); Mean Corpuscular Volume 90.5 fl (85-98); Mean Platelet Volume 9.8 fL (7.4-10.4); Monocytes # 1.2 10^3/uL (0.2-0.9); Monocytes % 12.5 %; Neutrophils # 6.98 10^3/uL (1.8-7.7); Neutrophils % 74.9 %; Nucleated Red Blood Cells % 0 %; Platelet Count 178 10^3/cmm (157-399); Red Blood Count 3.46 10^6/uL (3.85-5.65); Red Cell Distribution Width 12.9 % (12.1-15.1); White Blood Count 9.31 10^3/uL (3.29-11.43)
[2023-08-08 06:30] LABS: Alanine Aminotransferase 8 U/L (0-33); Albumin Level 2.4 g/dL (3.5-5.2); Alkaline Phosphatase 110 U/L (35-105); Anion Gap 11.6 (5-19); Aspartate Amino Transferase 9 U/L (0-32); Blood Urea Nitrogen 6 mg/dL (8-23); Calcium 8.9 mg/dL (8.5-10.5); Carbon Dioxide 24 mmol/L (22-29); Chloride 109 mmol/L (98-107); Glucose 119 mg/dL (65-115); Osmolality Calculated 293 mOsm/kg (285-295); Sodium 142 mmol/L (136-145); Total Bilirubin 0.3 mg/dL (0.15-1.2); Total Protein 5.4 g/dL (6.6-8.7)
[2023-08-08 06:35] LABS: Magnesium 1.9 mg/dL (1.7-2.3)
[2023-08-08 06:39] LABS: Glucose Point of Care 111 mg/dL (70-110)
[2023-08-08 06:40] LABS: Potassium 2.6 mmol/L (3.5-5.1)
[2023-08-08 07:58] VITALS: BP 129/70; PULSE 87; RESP 18; TEMP 36.8; O2SAT 98
[2023-08-08] MEDS: pantoprazole DR 40 mg Tablet PO (10:25)
[2023-08-08] MEDS: potassium chloride ER 20 mEq Tablet 80 MEQ PO (10:25)
[2023-08-08] MEDS: insulin glargine 100 units/1 mL 40 UNIT SUBCUT (10:25)
--- NOTE | 2023-08-08 10:39 | PC.CHAP ---
Pastoral Care Encounter/Spiritual Assessment Type of Contact [] Declined puff iron operator visit [] Patient/Family/Request visit [] Outpatient visit [] Follow-up visit [] Physician referral [] Code/Alert [x] Routine visit [] Staff referral [] Actively dying [] Patient sleeping [] Family support [] [] Out of room [] Palliative care [] [x] Receiving care in room [] Pre-surgical visit [] Trauma [] Long length of stay [] ICU visit [] Other: Relational/Emotional Strength [x] Patient feels connected with others/family/visitors/staff [] Distress [] Loneliness/isolation [] Abandonment Spirituality of Patient [x] Person of Ijeoma [] Attends Rastafarian of their [place] [x] Believes in Prayer [] Reads Bible or Voodoo materials [] There are Spiritual issues to be addressed Set Up Technician Interventions [x] Prayer [x] Active listening [x] Non-anxious presence [x] Spiritual/emotional support [] Crisis/trauma care [x] Spiritual counseling [] Bereavement support [] Provided bereavement packet [] Provided Bible/devotional materials [] Provided toy/stuffed animal, coloring book to patient or family member [] Provided Communion [] Anointing/[place] [] Salvation [x] Completed spiritual assessment [] Other: Impact on Illness or Injury [] Angry [] Fearful [] Anxious [] Often cries [] Exhaustion [] Unable to work [] Unable to attend jew [] Unable to walk/stand [] Unable to read [] Unable to drive [] Unable to eat/drink [] Unable to sleep [] Unable to be with family [] Patient intubated [] Other: Summary senior has a good attitude not sure when she well go home Time spent with patient 10 mins
--- NOTE | 2023-08-08 11:43 | PM.DCS ---
Discharge Providers Date of Admission: 08/06/23 00:00 Date of Discharge: August 08, 2023 Attending Provider at Admission: Lis Staples MD Attending Provider at Discharge: Eyal Ariza MD Primary Care Provider: MARILYN Ramirez Diagnoses at Discharge Discharge Diagnosis (1) Diabetic keto-acidosis: Status: Acute Qualifiers: Diabetes mellitus complication detail: without coma Diabetes mellitus type: type 1 Qualified Code(s): E10.10 - Type 1 diabetes mellitus with ketoacidosis without coma (2) Cellulitis of leg, right: Status: Acute Reason for Visit Reason for Visit: high bp and blood sugar Hospital Course Hospital Course Dhara Harvey is a 72 year old female with cerebral palsy, Neurodevelopmental disorder, Type 2 diabetes mellitus, HTN , Brought to the emergency room by her 94-year-old mother today due to High blood sugars at home over the past 3 days. Mother states that patient has been feeling unwell, nauseous, has had a poor appetite. She denies any fever or chills. Patient has chronic lower extremity edema but her right lower extremity is currently more swollen and warm erythematous compared to the left side. There is no complaints of any URI type symptoms, cough dyspnea or expectoration. There has been no recent change in her insulin dosing. Patient typically gives herself her insulin injections. Patient was admitted to the ICU on insulin as per DKA protocol which were later transitioned to premeals insulin once anion gap was closed. On admission she was also found to be in sepsis secondary cellulitis for which she was started on broad-spectrum antibiotics. She has been discharged in hemodynamically stable condition on Lantus 45 units twice daily along with insulin sliding scale and 10 units insulin premeals. Patient and family has been counseled in detail about lifestyle modification as per diabetes. She is being advised to follow-up with primary care provider within next 1 week and with endocrinology within 2 weeks. Physical Exam Narrative: General: No acute distress, AO x 1-2, confused, at baseline mentation, dehydrated HEENT: PERRLA, pupils bilaterally equal and reactive, pallors not present Chest: Normal vesicular breath sounds, no added sounds, equal good air entry bilaterally CVS: S1-S2 regular, no murmurs, no tachycardia, no gallops, no rubs Abdomen: Soft, nontender, no organomegaly, bowel sounds present Neuro: No focal deficits, no facial deformity Extremities: RLE cellulitis Discharge Data Studies Completed and Pending Completed Studies During Hospitalization Category Date Time Status XR chest 1V portable [id number] Stat Exams 08/05/23 18:48 [place] [id number] Routine Ultrasound 08/06/23 08:15 Completed Pending at discharge Category Date Time Status Blood Cultures ([facility]) Routine Lab 08/06/23 08:10 Received Blood Cultures ([facility]) Routine Lab 08/06/23 08:13 Received MAG [Magnesium] AM LABS Lab 08/09/23 04:00 Ordered MRSA [Methicillin Resistant S.aureu] Routine Lab 08/06/23 11:23 Ordered Vancomycin Trough Timed Lab 08/09/23 03:00 Ordered Radiology Impressions Chest X-Ray 08/05/23 18:48 IMPRESSION: No acute findings. Laboratory Results WBC 9.31 10^3/uL (3.29-11.43) 08/08/23 05:31 RBC 3.46 10^6/uL (3.85-5.65) L 08/08/23 05:31 Hgb 10.30 g/dL (11.27-16.99) L 08/08/23 05:31 Hct 31.3 % (36-47) L 08/08/23 05:31 MCV 90.5 fl (85-98) 08/08/23 05:31 MCH 29.8 pg (27-33) 08/08/23 05:31 MCHC 32.9 g/dL (30-55) 08/08/23 05:31 RDW 12.9 % (12.1-15.1) 08/08/23 05:31 Plt Count 178 10^3/cmm (157-399) 08/08/23 05:31 MPV 9.8 fL (7.4-10.4) 08/08/23 05:31 Neut % (Auto) 74.9 % 08/08/23 05:31 Lymph % (Auto) 11.5 % 08/08/23 05:31 Harper % (Auto) 12.5 % 08/08/23 05:31 Eos % (Auto) 0.1 % 08/08/23 05:31 Baso % (Auto) 0.2 % 08/08/23 05:31 Neut # (Auto) 6.98 10^3/uL (1.8-7.7) 08/08/23 05:31 Lymph # (Auto) 1.1 10^3/uL (0.8-4.8) 08/08/23 05:31 Harper # (Auto) 1.2 10^3/uL (0.2-0.9) H 08/08/23 05:31 Eos # (Auto) 0.0 10^3/uL (0.0-0.8) 08/08/23 05:31 Baso # (Auto) 0.0 10^3/uL (0.0-0.1) 08/08/23 05:31 Nucleated RBC % (auto) 0 % 08/08/23 05:31 Nucleated RBCs # 0.0 /100WBC 08/08/23 05:31 Sodium 142 mmol/L (136-145) 08/08/23 05:31 Potassium 2.6 mmol/L (3.5-5.1) L* 08/08/23 05:31 Chloride 109 mmol/L (98-107) H 08/08/23 05:31 Carbon Dioxide 24 mmol/L (22-29) 08/08/23 05:31 Anion Gap 11.6 (5-19) 08/08/23 05:31 BUN 6 mg/dL (8-23) L 08/08/23 05:31 Creatinine 0.3 mg/dL (0.5-0.9) L 08/08/23 05:31 GFR Calculation Not Reportable 08/08/23 05:31 Glucose 119 mg/dL (65-115) H 08/08/23 05:31 POC Glucose 111 mg/dL (70-110) H 08/08/23 06:31 Estimat Average Glucose 407 08/05/23 19:00 Hemoglobin A1c 15.8 % (4.0-6.0) H 08/05/23 19:00 Calculated Osmolality 293 mOsm/kg (285-295) 08/08/23 05:31 Lactic Acid 2.0 mmol/L (0.5-2.2) 08/05/23 19:00 Calcium 8.9 mg/dL (8.5-10.5) 08/08/23 05:31 Magnesium 1.9 mg/dL (1.7-2.3) 08/08/23 05:31 Iron 17 ug/dL (37-145) L 08/06/23 08:10 TIBC 188 mcg/dl 08/06/23 08:10 % Saturation 9.0 % (20-50) L 08/06/23 08:10 Unsat Iron Binding 171 ug/dL (112-347) 08/06/23 08:10 Total Bilirubin 0.3 mg/dL (0.15-1.2) 08/08/23 05:31 AST 9 U/L (0-32) 08/08/23 05:31 ALT 8 U/L (0-33) 08/08/23 05:31 Alkaline Phosphatase 110 U/L (35-105) H 08/08/23 05:31 Total Protein 5.4 g/dL (6.6-8.7) L 08/08/23 05:31 Albumin 2.4 g/dL (3.5-5.2) L 08/08/23 05:31 Globulin 3.0 g/dL (1.3-4.6) 08/08/23 05:31 Triglycerides 169 mg/dL (0-150) H 08/07/23 04:07 Cholesterol 192 mg/dL (0-200) 08/07/23 04:07 LDL Cholesterol, Calc 120 mg/dL (50-129) 08/07/23 04:07 Total VLDL Cholesterol 34 mg/dL (0-30) H 08/07/23 04:07 HDL Cholesterol 38 mg/dL (60-100) L 08/07/23 04:07 Cholesterol/HDL Ratio 5.05 mg/dL (0.0-4.40) H 08/07/23 04:07 Vitamin B12 1141 pg/mL (232-1245) 08/06/23 08:10 Folate 6.3 ng/mL (4.8-37.3) 08/07/23 04:07 Procalcitonin 7.49 ng/mL (0-0.5) H 08/05/23 19:00 TSH 0.90 uIU/mL (0.27-4.20) 08/06/23 08:10 Urine Color Yellow (Yellow) 08/05/23 21:41 Urine Appearance Sl hazy (CLEAR) A 08/05/23 21:41 Urine pH 5 (5-7) 08/05/23 21:41 Ur Specific Jal 1.020 (1.005-1.030) 08/05/23 21:41 Urine Protein 1+ (Negative) H 08/05/23 21:41 Urine Glucose (UA) 4+ (Normal) H 08/05/23 21:41 Urine Ketones 3+ (Negative) H 08/05/23 21:41 Urine Blood 2+ (Negative) H 08/05/23 21:41 Urine Nitrate Negative (Negative) 08/05/23 21:41 Urine Bilirubin 1+ (Negative) H 08/05/23 21:41 Urine Urobilinogen Norm mg/dL (Negative) 08/05/23 21:41 Ur Leukocyte Esterase Trace (Negative) H 08/05/23 21:41 Urine RBC 0-4 /hpf (0-2) H 08/05/23 21:41 Urine WBC 0-4 /hpf (0-5) H 08/05/23 21:41 Ur Squamous Epith Cells None /hpf (0-5) 08/05/23 21:41 Ur Transition Epith Cell 0-4 /hpf 08/05/23 21:41 Amorphous Sediment Not Reportable 08/05/23 21:41 Urine Bacteria 1+ /hpf (NONE) H 08/05/23 21:41 Coarse Granular Casts 5-10 /lpf H 08/05/23 21:41 Urine Mucus 1+ /hpf 08/05/23 21:41 Serum Ketones Positive (Negative) H 08/05/23 19:00 Vitals Last Vital Signs Temp 98.2 F 08/08/23 07:58 Pulse 87 08/08/23 07:58 Resp 18 08/08/23 07:58 BP 129/70 08/08/23 07:58 Pulse Ox 98 08/08/23 07:58 O2 Del Method Room Air 08/08/23 07:58 Discharge Plan Discharge Patient Disposition: Home Condition: Stable Prescriptions: New Lantus Solostar U-100 Insulin 100 unit/mL (3 mL) insulin pen 45 unit SUBCUT BID Qty: 15 0RF Humalog KwikPen Insulin 100 unit/mL insulin pen 10 unit SUBCUT TID Qty: 15 0RF amoxicillin-pot clavulanate 875-125 mg tablet 1 tab PO Q12H Qty: 10 0RF levofloxacin 500 mg tablet 500 mg PO Q24H 5 Days Qty: 5 0RF (DME) Blood Glucose Monitoring Kit See Rx Instructions .ROUTE .MEDSUPPLY Qty: 1 0RF Rx Instructions: As directed (DME) BD Ultra-Fine Micro Pen Needle 32 gauge x 1/4 needle See Rx Instructions .ROUTE .MEDSUPPLY Qty: 50 0RF Rx Instructions: As directed (DME) lancets Misc See Rx Instructions .ROUTE .MEDSUPPLY Qty: 100 0RF Rx Instructions: As directed Continued (DME) nebulizers Mis See Rx Instructions .ROUTE .MEDSUPPLY Qty: 1 0RF Rx Instructions: [place] [place] FreeStyle Andreia 2 [place] Misc See Rx Instructions .ROUTE .MEDSUPPLY Qty: 1 0RF Rx Instructions: use 4-6 times day (DME) FreeStyle Andreia 2 Sensor Kit See Rx Instructions .ROUTE .MEDSUPPLY Qty: 2 11RF Rx Instructions: change every 14 days Discontinued Levemir U-100 Insulin 100 unit/mL solution See Rx Instructions SUBCUT DAILY Qty: 30 2RF Rx Instructions: 100U subcutaneously daily; insulin lispro [Humalog U-100 Insulin] 100 unit/mL solution 10 unit SUBCUT TID Qty: 10 2RF Discharge Orders: Discharge Order (Routine); Ordered 08/08/23 Ordered By: Eyal Ariza Referrals: Dunia Brizuela, [facility] [Primary Care Provider] - 7-10 days (We have notified your physician's clinic of the need for a follow-up appointment to be scheduled. If you have not heard from them within the next 2 business days, please call them directly. ) Emmy Meeks MD [Physician] - 2 weeks (We have notified your physician's clinic of the need for a follow-up appointment to be scheduled. If you have not heard from them within the next 2 business days, please call them directly. ) Discharge Diet: Diabetic Discharge Activity: Resume usual activity and Increase activity as tolerated Patient Instructions: Amoxicillin/Clavulanate Potassium (By mouth), Levofloxacin (By mouth) (Levaquin, Levaquin Leva-irma), Insulin Lispro Protamine/Insulin Lispro (By injection), Insulin Glargine (By injection), Opioid Safety Activity Restrictions/Additional Instructions: Please use 45 units of Lantus twice daily. Along with that taking 10 units of Humalog 3 times a day premeals. Please check your blood sugars daily at home maintain a blood sugar diary. You should check your blood sugars fasting when you wake up in the morning and 3 meals for the next 10 days after that only once fasting daily. We talked about sugars AND sugar between 20- 40. Take Augmentin and Levaquin which are the antibiotics for next 5 days Discharge Attestations Time Spent in Discharge Care*: greater than 30 min Specific Discharge Activities: educating and/or supporting family/caregiver, discussing with pcp/other providers, discussing with case packer and sealer/social workers/dc planners, documenting/other paperwork and evaluating patient/reviewing data Status at Discharge: Cognitive status at discharge: moderately impaired cognition, Behavioral status at discharge: cooperative, Functional status at discharge: independent ambulation, Overall status at discharge: patient is back to baseline Quality Metrics Clinical Quality Measures [ No reported AMI, CVA or VTE this stay] Coding Level of Care Code 90176 Total time (in minutes) for Discharge: 60 Diagnoses Diabetic keto-acidosis E10.10 Diabetes mellitus complication detail: without coma Diabetes mellitus type: type 1 Cellulitis of leg, right L03.115
[2023-08-08 11:48] VITALS: BP 120/69; PULSE 86; RESP 18; TEMP 36.3; O2SAT 97
[2023-08-08 12:19] VITALS: BP 120/69; PULSE 86; RESP 18; TEMP 36.3; O2SAT 97
[2023-08-08 12:34] LABS: Glucose Point of Care 171 mg/dL (70-110)
== END 2023-08-08 13:37 | disposition home or self-care (01) | DRG 637 ==
LOC: ER 22:28 → ER IP 08-06 01:11 → ICU 08-06 01:40 → MEDSURG 08-07 19:47
PROVIDERS: Admitting Provider Student in an Organized Health Care Education/Training Program; Emergency Provider Internal Medicine; PCP Nurse Practitioner; Visit Provider Student in an Organized Health Care Education/Training Program
DX: E10.10 Type 1 diabetes mellitus with ketoacidosis without coma (principal); A41.9 Sepsis, unspecified organism; L03.115 Cellulitis of right lower limb; Z79.4 Long term (current) use of insulin; G80.9 Cerebral palsy, unspecified; F41.9 Anxiety disorder, unspecified; I10 Essential (primary) hypertension; E78.2 Mixed hyperlipidemia; E66.9 Obesity, unspecified; Z68.31 Body mass index [BMI] 31.0-31.9, adult
CPT/HCPCS: 36415; 36416; 71045; 80048; 80053; 80061; 81001; 82009; 82607; 82746; 82962; 83036; 83540; 83550; 83605; 83735; 84145; 84443; 85025; 86403; 87040; 93970; 96365; 96372; 96375; 99285; 99291; J0692; J0696; J1650; J1815; J2405; J3370; J3480; J7030; J7042; J7050

== ENCOUNTER 2023-08-14 16:39 | Inpatient (IN) | payer MEDICARE, SELFPAY ==
[2023-08-14 16:44] VITALS: BP 184/80; PULSE 101; RESP 16; TEMP 37.1; O2SAT 98; BMI 36.2
--- NOTE | 2023-08-14 17:21 | XRR_ITS ---
PROCEDURE INFORMATION: Exam: XR Right Foot Exam date and time: 08/14/2023 5:26 PM Age: 72 years old Clinical indication: Condition or disease; Other: Cellulitis; Additional info: Pain TECHNIQUE: Imaging protocol: Radiologic exam of the right foot. Views: 3 or more views. COMPARISON: [place] [id number] 08/06/2023 8:50 AM FINDINGS: Bones/joints: No cortical irregularity or medullary lucency to suggest osteomyelitis. No fracture. Soft tissues: Soft tissue swelling along the dorsal aspect of the forefoot. XR/XR foot RT min 3V* [id number] IMPRESSION: 1. No cortical irregularity or medullary lucency to suggest osteomyelitis. 2. No fracture.
[2023-08-14 17:44] LABS: Basophils % 0.2 %; Eosinophils % 0.2 %; Hematocrit 33.2 % (36-47); Lymphocytes % 5.4 %; Mean Corpuscular HGB Conc 32.5 g/dL (30-55); Mean Corpuscular Hemoglobin 30.1 pg (27-33); Mean Corpuscular Volume 92.5 fl (85-98); Mean Platelet Volume 8.6 fL (7.4-10.4); Monocytes # 1.5 10^3/uL (0.2-0.9); Monocytes % 8.4 %; Neutrophils # 15.07 10^3/uL (1.8-7.7); Neutrophils % 84.3 %; Nucleated Red Blood Cells % 0 %; Platelet Count 453 10^3/cmm (157-399); Red Blood Count 3.59 10^6/uL (3.85-5.65); Red Cell Distribution Width 12.5 % (12.1-15.1); White Blood Count 17.88 10^3/uL (3.29-11.43)
[2023-08-14 17:45] LABS: Erythrocyte Sedimentation Rate 28 mm/hr (0-15)
[2023-08-14 18:00] LABS: Anion Gap 14.7 (5-19); Blood Urea Nitrogen 9 mg/dL (8-23); C Reactive Protein 104.6 mg/L (0.0-4.9); Carbon Dioxide 29 mmol/L (22-29); Chloride 97 mmol/L (98-107); Glucose 139 mg/dL (65-115); Osmolality Calculated 285 mOsm/kg (285-295); Potassium 3.7 mmol/L (3.5-5.1); Sodium 137 mmol/L (136-145)
--- NOTE | 2023-08-14 18:05 | W.ED.EXTPRO ---
HPI - Extremity Problem General: Chief complaint: Extremity Problem,Nontraumatic Stated complaint: sores on right foot,pain Time Seen by Provider: 08/14/23 17:55 Source: patient Mode of arrival: ambulatory Limitations: no limitations History of Present Illness: 72-year-old female who had a history of mild cellulitis right foot she had finished amoxicillin states that its much worse and she does have redness up to her calf with open sores. No known fever most here history is available from family member bedside as patient does have some intellectual disability. Associated symptoms: Deny chest pain, fever(s) or rash Review of Systems Const: Denies: fever(s), chills, body aches or change in appetite ENMT: Denies: throat pain or dental pain Card: Denies: chest pain Resp: Denies: dyspnea GI: Denies: abdominal pain, nausea, vomiting or diarrhea Musc: Reports: extremity swelling; Denies: neck pain or back pain Skin/Breast: Reports: erythema; Denies: rash Neuro: Denies: headache(s) PFSH ED PFSH: Medical History Diabetes mellitus with hyperglycemia, with long-term current use of insulin Essential (primary) hypertension Type 2 diabetes mellitus with obesity Bronchospasm Anxiety Mixed hyperlipidemia Cerebral palsied Neurodevelopmental disorder Surgical History History of hysterectomy Family History Brother Diabetes Hypertension Mother Hypertension Denies family history of Bleeding disorder Social History Smoking and tobacco/nicotine status: never used tobacco/nicotine Second hand smoke exposure: No Alcohol intake: never Substance/Drug Use: never Adopted: No Caregiver/support person: Yes Lives independently: No Household members: family Housing: House Marital status: Single Number of children: 0 service: No Current occupational status: disabled Pets and animals: Yes Do you think of yourself as: Straight/Heterosexual Current gender identity: Female Physical Exam Const: COMMON NORMALS: patient oriented x3 HENMT: COMMON NORMALS: normocephalic and atraumatic HEAD & SCALP: normocephalic and atraumatic Eye: COMMON NORMALS: Equal, round and reactive pupils present and EOMs intact bilaterally PUPIL: Yes Equal, round and reactive pupils present Neck/C-Spine: COMMON NORMALS: full ROM and supple Chest: COMMONS NORMALS: normal inspection of the chest Resp: COMMON NORMALS: normal respiratory effort Cardio: COMMON NORMALS: regular rate, regular rhythm and No murmurs present (Cardio) RATE: regular rate RHYTHM: regular rhythm Extremity: NARRATIVE EXTREMITY EXAM: Erythema cellulitis with open wounds noted to right foot and leg Neuro: COMMON NORMALS: patient oriented x3, moves all extremities and no focal motor deficits Psych: COMMON NORMALS: mental status grossly normal, Normal thought process present and cooperative THOUGHT PROCESS: Normal thought process present Skin: COMMON NORMALS: no rashes or lesions noted and no wounds GENERAL SKIN EXAM: no rashes or lesions noted Course Vital Signs: Vital signs: Vital Signs Temperature 98.7 F 08/14/23 16:44 Pulse Rate 101 H 08/14/23 16:44 Respiratory Rate 16 08/14/23 16:44 Blood Pressure 184/80 08/14/23 16:44 Pulse Oximetry 98 08/14/23 16:44 Oxygen Delivery Me thod Room Air 08/14/23 16:44 MDM - Extremity (Nontraumatic) Medical Decision Making Patient presents here with cellulitis. It is worsening from previous she does have an elevated white count no signs of osteomyelitis spoke to the hospitalist will admit on IV antibiotics. Medical Records I reviewed the patient's medical records. Lab Data I reviewed the patient's lab results. 08/14/23 17:35 08/14/23 17:35 Radiology Impressions Foot X-Ray 08/14/23 17:21 IMPRESSION: 1. No cortical irregularity or medullary lucency to suggest osteomyelitis. 2. No fracture. Laboratory Results WBC 17.88 10^3/uL (3.29-11.43) H 08/14/23 17:35 RBC 3.59 10^6/uL (3.85-5.65) L 08/14/23 17:35 Hgb 10.80 g/dL (11.27-16.99) L 08/14/23 17:35 Hct 33.2 % (36-47) L 08/14/23 17:35 MCV 92.5 fl (85-98) 08/14/23 17:35 MCH 30.1 pg (27-33) 08/14/23 17:35 MCHC 32.5 g/dL (30-55) 08/14/23 17:35 RDW 12.5 % (12.1-15.1) 08/14/23 17:35 Plt Count 453 10^3/cmm (157-399) H 08/14/23 17:35 MPV 8.6 fL (7.4-10.4) 08/14/23 17:35 Neut % (Auto) 84.3 % 08/14/23 17:35 Lymph % (Auto) 5.4 % 08/14/23 17:35 Bosque % (Auto) 8.4 % 08/14/23 17:35 Eos % (Auto) 0.2 % 08/14/23 17:35 Baso % (Auto) 0.2 % 08/14/23 17:35 Neut # (Auto) 15.07 10^3/uL (1.8-7.7) H 08/14/23 17:35 Lymph # (Auto) 1.0 10^3/uL (0.8-4.8) 08/14/23 17:35 Bosque # (Auto) 1.5 10^3/uL (0.2-0.9) H 08/14/23 17:35 Eos # (Auto) 0.0 10^3/uL (0.0-0.8) 08/14/23 17:35 Baso # (Auto) 0.0 10^3/uL (0.0-0.1) 08/14/23 17:35 Nucleated RBC % (auto) 0 % 08/14/23 17:35 Nucleated RBCs # 0.0 /100WBC 08/14/23 17:35 ESR 28 mm/hr (0-15) H 08/14/23 17:35 Sodium 137 mmol/L (136-145) 08/14/23 17:35 Potassium 3.7 mmol/L (3.5-5.1) 08/14/23 17:35 Chloride 97 mmol/L (98-107) L 08/14/23 17:35 Carbon Dioxide 29 mmol/L (22-29) 08/14/23 17:35 Anion Gap 14.7 (5-19) 08/14/23 17:35 BUN 9 mg/dL (8-23) 08/14/23 17:35 Creatinine 0.4 mg/dL (0.5-0.9) L 08/14/23 17:35 GFR Calculation Not Reportable 08/14/23 17:35 Glucose 139 mg/dL (65-115) H 08/14/23 17:35 Calculated Osmolality 285 mOsm/kg (285-295) 08/14/23 17:35 Calcium 9.0 mg/dL (8.5-10.5) 08/14/23 17:35 C-Reactive Protein 104.6 mg/L (0.0-4.9) H 08/14/23 17:35 All radiology interpretation(s) finalized by discharge Discharge Plan Discharge Patient Disposition: Admitted As Inpatient Clinical Impression: Cellulitis Condition: Stable Prescriptions: No Action (DME) nebulizers Misc See Rx Instructions .ROUTE .MEDSUPPLY Qty: 1 0RF Rx Instructions: As directed (DME) FreeStyle Andreia 2 [place] Misc See Rx Instructions .ROUTE .MEDSUPPLY Qty: 1 0RF Rx Instructions: use 4-6 times day (DME) FreeStyle Andreia 2 Sensor Kit See Rx Instructions .ROUTE .MEDSUPPLY Qty: 2 11RF Rx Instructions: change every 14 days Lantus Solostar U-100 Insulin 100 unit/mL (3 mL) insulin pen 45 unit SUBCUT BID Qty: 15 0RF Humalog KwikPen Insulin 100 unit/mL insulin pen 10 unit SUBCUT TID Qty: 15 0RF amoxicillin-pot clavulanate 875-125 mg tablet 1 tab PO Q12H Qty: 10 0RF (DME) Blood Glucose Monitoring Kit See Rx Instructions .ROUTE .MEDSUPPLY Qty: 1 0RF Rx Instructions: As directed (DME) BD Ultra-Fine Micro Pen Needle 32 gauge x 1/4 needle See Rx Instructions .ROUTE .MEDSUPPLY Qty: 50 0RF Rx Instructions: As directed (DME) lancets Misc See Rx Instructions .ROUTE .MEDSUPPLY Qty: 100 0RF Rx Instructions: As directed Referrals: Dunia Brizuela, S[employer]IOR [employer]ICER-[employer] [Primary Care Provider] - Coding Level of Care Code ED Medical Front Desk Coordinator for [facility]
[2023-08-14 18:17] VITALS: BP 176/97; PULSE 92; O2SAT 92
[2023-08-14] MEDS: vancomycin 1,000 MG in sodium chloride 0.9% 250 ML 250 MG IV (18:26)
--- NOTE | 2023-08-14 19:28 | P.HP_ITS ---
Providers/Chief Complaint 2 Admitting Physician: Mayur Birmingham Primary Care Provider: MARILYN Ramirez Chief Complaint: sores on right foot,pain History of Present Illness Dhara Harvey is a 72 year old female returns with nonhealed cellulitis, purulent drainage from ulcerations, fissure on right lower leg above the ankle, erythema, swelling, warmth. No obvious fracture on x-ray and ER. Discharged on 08/08 has completed course of Augmentin and Levaquin yesterday. Blood sugars have been difficult to control with diabetes and course of infection. Review of Systems 2 General: Reports: ROS unobtainable due to mental status Medications/Allergies Home Medications Medication Instructions Recorded Confirmed Last Taken Type nebulizers #1 ea 01/02/22 08/06/23 Unknown Rx flash glucose scanning reader #1 ea 10/03/22 08/06/23 Unknown Rx (FreeStyle Andreia 2 [place]) flash glucose sensor (FreeStyle #2 ea 10/03/22 08/06/23 Unknown Rx Andreia 2 Sensor kit) amoxicillin 875 mg-potassium 1 tab PO Q12H #10 tabs 08/08/23 Unknown Rx clavulanate 125 mg tablet blood-glucose meter (Blood Glucose #1 ea 08/08/23 Unknown Rx Monitoring kit) insulin glargine 100 unit/mL (3 45 unit (0.45 mL) SUBCUT BID #15 mL 08/08/23 Unknown Rx mL) subcutaneous pen (Lantus Solostar U-100 Insulin) insulin lispro 100 unit/mL 10 unit (0.1 mL) SUBCUT TID #15 mL 08/08/23 Unknown Rx subcutaneous pen (Humalog KwikPen (U-100) Insulin) lancets #100 ea 08/08/23 Unknown Rx pen needle, diabetic 32 gauge x #50 ea 08/08/23 Unknown Rx 1/4 (BD Ultra-Fine Micro Pen Needle) Allergies Allergy/AdvReac Type Severity Reaction Status Date / Time No Known Allergies Allergy Verified 08/05/23 18:14 PFSH Acute 2 PFSH: Medical History Diabetes mellitus with hyperglycemia, with long-term current use of insulin Essential (primary) hypertension Type 2 diabetes mellitus with obesity Bronchospasm Anxiety Mixed hyperlipidemia Cerebral palsied Neurodevelopmental disorder Surgical History History of hysterectomy Family History Brother Diabetes Hypertension Mother Hypertension Denies family history of Bleeding disorder Social History Smoking and tobacco/nicotine status: never used tobacco/nicotine Second hand smoke exposure: No Alcohol intake: never Substance/Drug Use: never Adopted: No Caregiver/support person: Yes Lives independently: No Household members: family Housing: House Marital status: Single Number of children: 0 service: No Current occupational status: disabled Pets and animals: Yes Do you think of yourself as: Straight/Heterosexual Current gender identity: Female Vitals/I&O/Wt Last Vital Signs Temp 98.7 F 08/14/23 16:44 Pulse 101 H 08/14/23 16:44 Resp 16 08/14/23 16:44 BP 184/80 08/14/23 16:44 Pulse Ox 98 08/14/23 16:44 O2 Del Method Room Air 08/14/23 16:44 Weight last 48 hrs Weight 89.811 kg Physical Exam 2 Narrative: Accompanied by family member. Const: COMMON NORMALS: alert GENERAL APPEARANCE: not cooperative O RIENTATION/CONSCIOUSNESS: Yes awake HENMT: COMMON NORMALS: oropharynx normal Neck/C-Spine: COMMON NORMALS: no JVD Resp: COMMON NORMALS: normal respiratory effort and clear to auscultation bilaterally AUSCULTATION: clear to auscultation bilaterally Cardio: COMMON NORMALS: no JVD, regular rhythm, S1 normal heart sound present, S2 normal heart sound present and No murmurs present (Cardio) RHYTHM: regular rhythm HEART SOUNDS: S1 normal heart sound present and S2 normal heart sound present GI: COMMON NORMALS: Normal to inspection, nondistended, normoactive bowel sounds present, Soft to palpation and non-tender PALPATION: Yes Soft to palpation Extremity: COMMON NORMALS: no joint enlargement and no pedal edema N ARRATIVE EXTREMITY EXAM: Swelling, erythema, warmth 2/3 lower right leg above the ankle. Horizontal fissure with ulcerization above the R ankle with shallow ulcer is filled with purulent secretion. Neuro: COMMON NORMALS: patient oriented x3 and moves all extremities S ENSORIUM/ORIENTATION: Yes alert Psych: MOOD & AFFECT: Yes anxious Skin: COMMON NORMALS: no rashes or lesions noted GENERAL SKIN EXAM: no rashes or lesions noted Data 08/14/23 17:35 08/14/23 17:35 A&P Assessment and plan (1) Cellulitis of leg, right: History obtained from family member at bedside as patient with neurodevelopmental disorder. Purulent cellulitis two thirds ulceration, pressurization with purulent secretion. Nonresolving, with failed outpatient treatment, has completed antibiotics prescribed during prior admission discharged on 08/08. With diabetes, risk of progression of infection, abscess, loss of limb. Obtain wound culture from purulent ulcer secretions. Discussed with her family obtaining contrast-enhanced CT study for additional assessment of possibility of abscess. Continue broad-spectrum antibiotic coverage. Continue vancomycin. Add ciprofloxacin. Follow-up wound cultures. Risk of renal dysfunction with vancomycin, reassess renal function. Noted leukocytosis, 18, sinus tachycardia 101, possible sepsis, obtain blood culture, lactic acid. Has received vancomycin. Reviewed vitals, CBC, CMP, right foot x-ray, ESR, CRP, ER documentation. Discussed with ER physician. Lower right leg with (2) Type 2 diabetes mellitus with obesity: Difficult to control blood glucose due to infection. Continue usual insulin Lantus 45 units twice daily, Premeal insulin, close carbohydrate diet. Sliding scale. Monitor blood glucose. Plan HTN: Monitor BPs Bronchospasm Anxiety Mixed hyperlipidemia Cerebral palsied Neurodevelopmental disorder: mother who is also DPOA will be staying with her. Attestations 2 Medical Necessity Statement*: Admission over 2 midnights anticipated for assessment management of nonresolving purulent cellulitis, failed outpatient treatment. Diagnoses Cellulitis of leg, right L03.115 Type 2 diabetes mellitus with obesity E11.69; E66.9
--- NOTE | 2023-08-14 19:31 | CTR_ITS ---
PROCEDURE INFORMATION: Exam: CT Right Lower Extremity With Contrast; Lower Leg Exam date and time: 08/15/2023 2:05 AM Age: 72 years old Clinical indication: Condition or disease; Other: Cellulitis, purulent drainage from ulcers, dm, assess for abscess TECHNIQUE: Imaging protocol: CT of the right lower extremity with intravenous contrast was performed. Exam focused on the lower leg. Radiation optimization: All CT scans at this facility use at least one of these dose optimization techniques: automated exposure control; mA and/or kV adjustment per patient size (includes targeted exams where dose is matched to clinical indication); or iterative reconstruction. COMPARISON: CR (LOW EXM, ) 08/14/2023 5:26 PM RADIATION DOSE METRICS: Total DLP (mGy-cm): 556.61 FINDINGS: Bones/joints: Small knee joint effusion. More focal soft tissue thickening and attenuation at the level of the great toe medially an area of distal 1st metatarsal bone. No acute fracture. Soft tissues: Prominent superficial skin, subcutaneous and deep compartment myofascial edema or cellulitis. Fluid collection surrounding the outer myofascial compartment and fluid insinuating within deep myofascial and neurovascular compartments. No soft tissue gas. No focally dominant osseous destruction. Open wound with fluid at the skin margin at the ankle laterally. Other findings: No typical peripheral enhancing fluid collection to suggest a definable abscess. CT/CT lower leg RT w con [id number] IMPRESSION: 1. Prominent skin subcutaneous and deep soft tissue compartment edema or cellulitis. 2. No focally marginated collection to suggest abscess. 3. With deep soft tissue myofascial compartment involvement correlation clinically is required for assessment for the presence of or exclusion of any condition of necrotizing fasciitis.
[2023-08-14 19:39] VITALS: BMI 36.2
[2023-08-14 20:00] VITALS: BP 122/73; PULSE 58; RESP 18; TEMP 37; O2SAT 97
--- NOTE | 2023-08-14 20:19 | PC.PHAR ---
Vancomycin Pharmacy to Dose Vanco Initial Dosing Patient Information Sex F M/F Last Name Wes AGE 72 years First Name Dhara Ht 62 inches : 1950 ABW 89.811 kg Location: [facility] IBW 50.1 kg If loading dose given: DW 65.9844 kg Loading DOSE: 1500 mg SCr 0.4 mg/dl This Dose = 22.7 mg/kg CrCl 99.1 ml/min 1st dose Cmax: 29.0 mcg/ml Vd 49.4883 liters Time elapsed: 18.0 hrs Ke 0.087 hrs-1 Serum Conc. = 6.1 mcg/ml t1/2 8 hrs Hrs until 20 mcg/ml 5.3 hrs Hrs until 15 mcg/ml 8.6 hours Hrs until 10 mcg/ml 13.3 hours Dose Tau (Freq) Levels expected Standard 1500 18 Cmax 35.2 Targets 22.73 12.0 Cpeak 32.3 25 to 40 mg/kg hours Cmin 8.8 10 to 20
[2023-08-14] MEDS: lactated ringers 1,000 ML 100 ML IV (21:06)
[2023-08-14] MEDS: ciprofloxacin 400 MG/200 ML PREMIX 200 MG IV (21:07)
[2023-08-14] MEDS: enoxaparin 40 mg/0.4 mL Syringe SUBCUT (21:07)
[2023-08-14 22:00] VITALS: BP 127/78; PULSE 86; RESP 18; TEMP 37; O2SAT 98
[2023-08-14 22:04] LABS: Glucose Point of Care 167 mg/dL (70-110)
[2023-08-15] VITALS: BP 120/73; PULSE 60; RESP 18; TEMP 37.1; O2SAT 96
[2023-08-15] MEDS: LORazepam 2 mg/mL INJ 10 mL MDV 0.5 MG IVP (01:24)
[2023-08-15] MEDS: iohexol 350 mg/mL 500 mL Btl (per mL) IV (02:16)
[2023-08-15 04:42] VITALS: BP 117/68; PULSE 82; RESP 17; TEMP 37.1; O2SAT 98
[2023-08-15 06:02] LABS: Basophils % 0.2 %; Eosinophils # 0.1 10^3/uL (0.0-0.8); Eosinophils % 0.7 %; Hematocrit 30.5 % (36-47); Lymphocytes # 1.9 10^3/uL (0.8-4.8); Lymphocytes % 15.4 %; Mean Corpuscular HGB Conc 31.8 g/dL (30-55); Mean Corpuscular Hemoglobin 29.8 pg (27-33); Mean Corpuscular Volume 93.6 fl (85-98); Mean Platelet Volume 8.6 fL (7.4-10.4); Monocytes # 1.6 10^3/uL (0.2-0.9); Monocytes % 13.3 %; Neutrophils # 8.33 10^3/uL (1.8-7.7); Neutrophils % 69.1 %; Nucleated Red Blood Cells % 0 %; Platelet Count 391 10^3/cmm (157-399); Red Blood Count 3.26 10^6/uL (3.85-5.65); Red Cell Distribution Width 12.3 % (12.1-15.1); White Blood Count 12.06 10^3/uL (3.29-11.43)
[2023-08-15] MEDS: vancomycin 1,500 MG/300 ML PIGGYBACK 200 MG IV ×2 (06:03→23:08)
[2023-08-15 06:12] LABS: Glucose Point of Care 63 mg/dL (70-110)
[2023-08-15 06:19] LABS: Anion Gap 11.4 (5-19); Blood Urea Nitrogen 7 mg/dL (8-23); Calcium 8.6 mg/dL (8.5-10.5); Carbon Dioxide 30 mmol/L (22-29); Chloride 103 mmol/L (98-107); Glucose 50 mg/dL (65-115); Osmolality Calculated 287 mOsm/kg (285-295); Potassium 3.4 mmol/L (3.5-5.1); Sodium 141 mmol/L (136-145)
[2023-08-15 08:00] VITALS: BP 120/64; PULSE 81; RESP 17; TEMP 36.5; O2SAT 98
[2023-08-15] MEDS: ciprofloxacin 400 MG/200 ML PREMIX 200 MG IV ×2 (08:49→20:54)
[2023-08-15 11:22] LABS: Glucose Point of Care 202 mg/dL (70-110)
[2023-08-15 12:00] VITALS: BP 133/74; PULSE 94; RESP 18; TEMP 36.6; O2SAT 95
--- NOTE | 2023-08-15 12:28 | PC.NURSE ---
Pt and mother expressed that they would not like any surgical intervention to the right leg.
--- NOTE | 2023-08-15 12:41 | P.CONIM_ITS ---
Providers/Reason For Consult 2 Consulting Physician/Specialty*: General surgery Reason for Consult*: Soft tissue infection of the right lower extremity Attending Physician: Mayur Birmingham Primary Care Provider: MARILYN Ramirez History of Present Illness History of Present Illness Dhara Harvey is a 72 year old female with history of cognitive delay, diabetes, diabetic foot, she was recently admitted with cellulitis of the right lower extremity, she was discharged home on antibiotics, after finishing antibiotics she has noted to evidence of worsening of the swelling and pain on the right lower extremity. Of note, patient has history of lymphedema of the extremity. I was consulted for evaluation and to rule out necrotizing soft tissue infection. On my evaluation patient complaining of swelling and tenderness at the level of the ankle. Review of Systems 2 Narrative: Unable to complete review of systems due to patient mental cognitive delay. Medications/Allergies Home Medications Medication Instructions Recorded Confirmed Last Taken Type nebulizers #1 ea 01/02/22 08/15/23 Unknown Rx flash glucose scanning reader #1 ea 10/03/22 08/15/23 Unknown Rx (FreeStyle Andreia 2 [place]) flash glucose sensor (FreeStyle #2 ea 10/03/22 08/15/23 Unknown Rx Andreia 2 Sensor kit) amoxicillin 875 mg-potassium 1 tab PO Q12H #10 tabs 08/08/23 08/15/23 Unknown Rx clavulanate 125 mg tablet blood-glucose meter (Blood Glucose #1 ea 08/08/23 08/15/23 Unknown Rx Monitoring kit) insulin glargine 100 unit/mL (3 45 unit (0.45 mL) SUBCUT BID #15 mL 08/08/23 08/15/23 Unknown Rx mL) subcutaneous pen (Lantus Solostar U-100 Insulin) insulin lispro 100 unit/mL 10 unit (0.1 mL) SUBCUT TID #15 mL 08/08/23 08/15/23 Unknown Rx subcutaneous pen (Humalog KwikPen (U-100) Insulin) lancets #100 ea 08/08/23 08/15/23 Unknown Rx pen needle, diabetic 32 gauge x #50 ea 08/08/23 08/15/23 Unknown Rx 1/4 (BD Ultra-Fine Micro Pen Needle) Allergies Allergy/AdvReac Type Severity Reaction Status Date / Time No Known Allergies Allergy Verified 08/15/23 08:13 Current Medications Generic Name Dose Route Start Last Admin Trade Name Billq PRN Reason Stop Dose Admin Enoxaparin Sodium 40 mg 08/14/23 19:45 08/14/23 21:07 Enoxaparin 40 Mg/0.4 Ml Syringe SUBCUT 40 mg Q24H D[facility]ING Administration Ciprofloxacin/Dextrose 400 mg in 200 mls @ 200 mls/hr 08/14/23 19:39 08/15/23 10:16 Cipro IV Infused Q12H [facility] Infusion Protocol Lactated Ringer's 1,000 mls @ 100 mls/hr 08/14/23 19:45 08/15/23 03:56 Lactated Ringers IV 100 mls/hr .Q10H [facility] Infusion Vancomycin/PEG/NADA/Lysine/Water 1,500 mg in 300 mls @ 200 mls/hr 08/15/23 06:00 08/15/23 07:35 Vancocin IV Infused Q18H [facility] Infusion Insulin Glargine 45 unit 08/15/23 09:00 08/15/23 08:00 Insulin Glargine 100 Units/1 Ml SUBCUT Not Given BID D[facility]ING Insulin Human Lispro 10 unit 08/15/23 07:00 08/15/23 08:00 Insulin Lispro 100 Unit/1 Ml SUBCUT Not Given TIDAC D[facility]ING Insulin Human Lispro 0 unit 08/14/23 21:00 08/15/23 08:00 Insulin Lispro 100 Unit/1 Ml SUBCUT Not Given WM&BEDTIME [facility] Protocol PFSH Acute 2 PFSH: Medical History Diabetes mellitus with hyperglycemia, with long-term current use of insulin Essential (primary) hypertension Type 2 diabetes mellitus with obesity Bronchospasm Anxiety Mixed hyperlipidemia Cerebral palsied Neurodevelopmental disorder Surgical History History of hysterectomy Family History Brother Diabetes Hypertension Mother Hypertension Denies family history of Bleeding disorder Social History Smoking and tobacco/nicotine status: never used tobacco/nicotine Second hand smoke exposure: No Alcohol intake: never Substance/Drug Use: never Adopted: No Caregiver/support person: Yes Lives independently: No Household members: family Housing: House Marital status: Single Number of children: 0 service: No Current occupational status: disabled Pets and animals: Yes Do you think of yourself as: Straight/Heterosexual Current gender identity: Female Vitals/I&O/Wt Last Vital Signs Temp 97.7 F 08/15/23 08:00 Pulse 81 08/15/23 08:00 Resp 17 08/15/23 08:00 BP 120/64 08/15/23 08:00 Pulse Ox 98 08/15/23 08:00 O2 Del Method Room Air 08/14/23 19:39 08/14/23 08/15/23 08/15/23 22:59 06:59 14:59 Intake Total 528.334 / 528.334 0 / 528.334 740 / 740 Output Total 900 / 900 Balance 528.334 / 528.334 -900 / -371.666 740 / 740 Weight last 48 hrs Weight 198 lb Weight 198 lb Weight 198 lb Physical Exam 2 Narrative: General : Patient alert and awake Head : Normal cephalic, a-traumatic. Nose : Mucous membranes are without erythema. Lungs : Equal chest rise bilaterally, no use of accessory muscles, trachea is midline. CV : Rate and rhythm are normal. Abdomen : Soft, ND, NT, no g/r/m Extremities : On the right lower extremity there is erythema that is circumferential on the lower two thirds of the leg and foot, on the anterior portion of the ankle there is evidence of ulceration with crusting, which appears to be chronic in nature, there is more proximal edema but without evidence of erythema. Data 08/15/23 05:47 08/15/23 05:47 Micro: Microbiology 08/15/23 06:00 Gram Stain - Final Ankle - Drainage A&P Assessment and plan (1) Cellulitis of leg, right: Plan 72-year-old female who is admitted with right leg cellulitis, after complete history and physical examination I think clinical picture mostly correlates to cellulitis with an low to intermediate risk of necrotizing soft tissue infection. While patient CRP is elevated, her white count has decreased significantly over the last 24 hours, her sodium is normal and clinical examination is not compatible at the moment with necrotizing soft tissue infection. The recommendation will be to continue IV antibiotics and is elevation of the extremity. In the case of clinical worsening of the patient, early orthopedic surgery consultation will be needed for possible below the knee amputation, due to skin changes at the level of the ankle I do not think a less invasive operation would be successful. I have discussed my findings and my recommendation with the patient and family member, they have spread to the they have no intention of proceeding with amputation even if this may result in of the patient. -Low risk for necrotizing soft tissue infection at this moment ? Continue IV antibiotics ? If clinically worsening please consider orthopedic surgery consultation for below the knee amputation. ? Continue wound elevation ? All other management per primary team. Coding Level of Care Code Acute Code for [facility] Diagnoses Cellulitis of leg, right L03.115
[2023-08-15] MEDS: insulin lispro 100 unit/1 mL SUBCUT ×2 (12:42→17:39)
[2023-08-15] MEDS: lactated ringers 1,000 ML 100 ML IV ×2 (12:43→23:07)
[2023-08-15] MEDS: acetaminophen 325 mg Tablet 650 MG PO ×2 (14:18→23:16)
[2023-08-15 16:00] VITALS: BP 140/68; PULSE 106; RESP 18; TEMP 37.2; O2SAT 95
[2023-08-15 17:17] LABS: Glucose Point of Care 150 mg/dL (70-110)
[2023-08-15] MEDS: insulin lispro 100 unit/1 mL 10 UNIT SUBCUT (17:39)
[2023-08-15] MEDS: insulin glargine 100 units/1 mL 45 UNIT SUBCUT (17:40)
[2023-08-15 20:00] VITALS: BP 128/71; PULSE 88; RESP 16; TEMP 37.1; O2SAT 95
[2023-08-15] MEDS: enoxaparin 40 mg/0.4 mL Syringe SUBCUT (20:55)
[2023-08-15 20:57] LABS: Glucose Point of Care 114 mg/dL (70-110)
--- NOTE | 2023-08-15 22:36 | P.PN_ITS ---
Subjective 2 Subjective: This morning she reports pain in her leg is somewhat better but still is tender to touch. Discussed with her and her mother regarding obtaining surgical consultation for assessment of possible necrotizing fasciitis. Continue antibiotic therapy. As discussed at this time no plans for amputation. It appears on assessment by surgery amputation was mentioned as a possibility in case of lack of worsening. Patient became agitated later on explaining she does not want to see the doctor, does not want to lose her foot. Discussed again at this time this is not a plan of action, and that we will be discussing further in case amputation was planned, reassured her and her mother. Try to eat with her mother outside so as not to further agitate the patient, but the mother refused. Discussed reasoning for consideration of escalation of care in case of presence of necrotizing fasciitis, explained in layman terms, or in case of worsening condition due to diabetes. Patient expressed concern out of the blue yesterday about having her foot amputated given the it was not even mentioned yet, due to her father losing her prediabetes. Mother states losing his life . They adamantly declined considering surgical intervention at current time. Additionally the mother seems to not remember discussion with the surgeon. From discussion with surgery they confirm that at this time recommendation is for continued antibiotic management and that there is no plan or recommendation for amputation at current time. Vitals/I&O/Wt Last Vital Signs Temp 98.7 F 08/15/23 20:00 Pulse 88 08/15/23 20:00 Resp 16 08/15/23 20:00 BP 128/71 08/15/23 20:00 Pulse Ox 95 08/15/23 20:00 O2 Del Method Room Air 08/15/23 20:00 08/15/23 08/15/23 08/15/23 06:59 14:59 22:59 Intake Total 0 / 309.277 5435.333 / 1858.333 320 / 2178.333 Output Total 900 / 900 Balance -900 / -809.683 5927.333 / 1858.333 320 / 2178.333 Weight last 48 hrs Weight 89.811 kg Weight 89.811 kg Weight 89.811 kg Physical Exam 2 Narrative: Accompanied by mother on both visits. Const: COMMON NORMALS: patient oriented x3 and alert GENERAL APPEARANCE: n ot cooperative ORIENTATION/CONSCIOUSNESS: Yes awake HENMT: COMMON NORMALS: oropharynx normal Neck/C-Spine: COMMON NORMALS: no JVD Resp: COMMON NORMALS: normal respiratory effort and clear to auscultation bilaterally AUSCULTATION: clear to auscultation bilaterally Cardio: COMMON NORMALS: no JVD, regular rhythm, S1 normal heart sound present, S2 normal heart sound present and No murmurs present (Cardio) RHYTHM: regular rhythm HEART SOUNDS: S1 normal heart sound present and S2 normal heart sound present GI: COMMON NORMALS: Normal to inspection, nondistended, normoactive bowel sounds present, Soft to palpation and non-tender PALPATION: Yes Soft to palpation Extremity: COMMON NORMALS: no joint enlargement and no pedal edema N ARRATIVE EXTREMITY EXAM: Swelling, erythema, warmth 2/3 lower right leg above the ankle. Horizontal fissure with ulcerization above the R ankle with shallow ulcer is filled with purulent secretion. Neuro: COMMON NORMALS: patient oriented x3 and moves all extremities S ENSORIUM/ORIENTATION: Yes alert Psych: MOOD & AFFECT: Yes anxious Skin: COMMON NORMALS: no rashes or lesions noted GENERAL SKIN EXAM: no rashes or lesions noted Data 08/15/23 05:47 08/15/23 05:47 Micro: Microbiology 08/15/23 06:00 Gram Stain - Final Ankle - Drainage Wound Culture - Preliminary A&P Assessment and plan (1) Cellulitis of leg, right: Persistent symptoms of erythema, swelling, perhaps some minimal improvement, leukocytosis noted with improvement. Patient seems to perseverate on preemptively refusing amputation even though this was not at this time recommended or offered, mention briefly by surgery in case of lack of improvement as consideration during discussion of assessment and plan. Additionally patient's elderly mother seems to not remember the discussion. Some possible difficulties with memory noticed during the day. As at current time no recommendation for change of plan, continue with antibiotic treatment, discussed and reassured patient and her mother and current time no changes during second visit and together with her nurse. Discussed risk of necrotizing fasciitis, risk of worsening infection, risk of need for surgical intervention amputation which they had declined preemptively at current time, but may consider the absolute last resort. Discussed their permission will be sought in case of any intervention to be undertaken. Continue broad-spectrum antibiotics. Recommended elevation of lower extremities to help with edema and we set her leg elevated on a pillow. Reviewed vitals, CBC, BMP. Reviewed lower extremity CT, discussed with patient and mother in the morning, discussed with surgeon. Reviewed surgery note. Wound culture with few gram-positive cocci in pairs. Purulent cellulitis two thirds ulceration, pressurization with purulent secretion. Nonresolving, with failed outpatient treatment, has completed antibiotics prescribed during prior admission discharged on 08/08. With diabetes, risk of progression of infection, abscess, loss of limb. Risk of renal dysfunction with vancomycin, reassess renal function. (2) Type 2 diabetes mellitus with obesity: Difficult to control blood glucose due to infection. Insulin was held this morning due to hypoglycemia, blood glucose 50.With improvement in the afternoon. Decrease insulin Lantus to 10 units twice daily. Will escalate depending on glucose. Continue sliding scale insulin. Monitor blood glucose. Plan Hypokalemia: Potassium 3.4. Replace potassium. Check magnesium. HTN: Monitor BPs Bronchospasm Anxiety Mixed hyperlipidemia Cerebral palsied Neurodevelopmental disorder: mother who is also DPOA will be staying with her. Attestations 2 Medical Necessity Statement*: Admission over 2 midnights anticipated for assessment management of nonresolving purulent cellulitis, failed outpatient treatment. , High MDM includes amount and/or complexity of data reviewed/ordered [ previous or external records, resulted lab(s)/test(s), ordered lab(s)/test(s) and other healthcare professional discussion] and described risk of complication, morbidity or mortality of management as documented and High Time for a total of 60 minutes, includes reviewing past or interval history, examining/interviewing patient, placing orders, counseling patient/family/other support, updating patient/family/other support, discussing plan of care with staff, communicating with other healthcare providers, documenting encounter and coordinating care Diagnoses Cellulitis of leg, right L03.115 Type 2 diabetes mellitus with obesity E11.69; E66.9
[2023-08-15] MEDS: potassium chloride ER 20 mEq Tablet 40 MEQ PO (23:07)
[2023-08-16] VITALS: BP 147/71; PULSE 89; RESP 16; TEMP 37.3; O2SAT 100
[2023-08-16 04:00] VITALS: BP 125/71; PULSE 83; RESP 17; TEMP 36.7; O2SAT 96
[2023-08-16 05:54] LABS: Basophils % 0.4 %; Eosinophils # 0.1 10^3/uL (0.0-0.8); Eosinophils % 1.6 %; Hematocrit 29.5 % (36-47); Lymphocytes # 1.4 10^3/uL (0.8-4.8); Lymphocytes % 17.5 %; Mean Corpuscular HGB Conc 31.2 g/dL (30-55); Mean Corpuscular Hemoglobin 29.7 pg (27-33); Mean Corpuscular Volume 95.2 fl (85-98); Mean Platelet Volume 8.5 fL (7.4-10.4); Monocytes # 0.9 10^3/uL (0.2-0.9); Monocytes % 10.4 %; Neutrophils # 5.64 10^3/uL (1.8-7.7); Nucleated Red Blood Cells % 0 %; Platelet Count 350 10^3/cmm (157-399); Red Cell Distribution Width 12.4 % (12.1-15.1); White Blood Count 8.17 10^3/uL (3.29-11.43)
[2023-08-16 06:16] LABS: Chloride 104 mmol/L (98-107); Sodium 140 mmol/L (136-145)
[2023-08-16 06:36] VITALS: BMI 36.2
[2023-08-16 06:37] LABS: Anion Gap 10.9 (5-19); Blood Urea Nitrogen 5 mg/dL (8-23); Calcium 8.3 mg/dL (8.5-10.5); Carbon Dioxide 29 mmol/L (22-29); Glucose 150 mg/dL (65-115); Osmolality Calculated 290 mOsm/kg (285-295)
[2023-08-16 06:45] LABS: Glucose Point of Care 143 mg/dL (70-110)
[2023-08-16] MEDS: insulin lispro 100 unit/1 mL 10 UNIT SUBCUT ×2 (07:40→17:57)
[2023-08-16] MEDS: insulin lispro 100 unit/1 mL SUBCUT ×3 (07:41→23:04)
[2023-08-16 08:00] VITALS: BP 123/66; PULSE 83; RESP 17; TEMP 36.8; O2SAT 97
--- NOTE | 2023-08-16 08:12 | PC.NURSE ---
Patient remained agitated during shift supervisor melting and very irritable. Patient even had an incontinent episode last night and got really upset with this RN and the PROGRAM AIDE GROUP WORK because we did not have any regular underwear to put on patient all that we had was a disposable brief. Every time that this RN would come into the room patient and mother would complain about the doctor wanting to amputate the patients right foot. The mother that is 94 years old is the condominium property manager of the patient, and would state every time that this RN walked into the room, I don't understand why they are not treating the patient correctly. This RN had to reorientate mother multiple times that the hospital is treating the patient and that antibiotic therapies have been given to the patient to help with the illness. Every time this happened,the mother would state if they would have given her antibiotics to begin with the patient illness would not be as bad. This nurse had to explain to the mother that the hospital has been giving the patient antibiotics since admission. The mother was repeating her self multiple times stating that she would like to talk to another doctor because she believes that we are not treating the patient properly.
[2023-08-16] MEDS: lactated ringers 1,000 ML 100 ML IV ×2 (08:52→21:57)
--- NOTE | 2023-08-16 10:09 | P.PN_ITS ---
Subjective 2 Subjective: 89-year-old female who is in the [facility] for cellulitis of the right lower extremity. Over the last 24 hours there has been significant improvement of the cellulitis redness and swelling of the right lower extremity. Patient is in better spirits, does not complain of much pain at the level of the leg. Vitals/I&O/Wt Last Vital Signs Temp 98.3 F 08/16/23 08:00 Pulse 83 08/16/23 08:00 Resp 17 08/16/23 08:00 BP 123/66 08/16/23 08:00 Pulse Ox 97 08/16/23 08:00 O2 Del Method Room Air 08/16/23 04:00 08/15/23 08/16/23 08/16/23 22:59 06:59 14:59 Intake Total 1320 / 3178.333 300 / 3478.333 975 / 975 Balance 1320 / 3178.333 300 / 3478.333 975 / 975 Weight last 48 hrs Weight 198 lb Weight 198 lb Weight 198 lb Weight 198 lb Physical Exam 2 Extremity: NARRATIVE EXTREMITY EXAM: There is improvement of the edema and erythema on the right lower extremity. Anterior ankle ulcerations remain visible, with minimal amount of fibrinous discharge from the base. Data 08/16/23 05:37 08/16/23 05:37 Micro: Microbiology 08/15/23 06:00 Gram Stain - Final Ankle - Drainage Wound Culture - Preliminary A&P Assessment and plan (1) Cellulitis of leg, right: Plan Patient appears to be improving with antibiotic therapy. White count has normalized, she is in better spirits and her clinical appearance appears to be much improved. No surgical intervention is indicated at this time. Patient likely will require long-term antibiotics as guided by medical team. Consider referral to wound care and center as outpatient for management of anterior ankle ulcerations, patient will likely benefit from hyperbaric oxygen therapy if the goal is to preserve the limb. Attestations 2 Medical Necessity Statement*: Her medical team Coding Level of Care Code Acute Code for [facility] Fwd Diagnoses Cellulitis of leg, right L03.115
--- NOTE | 2023-08-16 10:23 | PC.CHAP ---
Pastoral Care Encounter/Spiritual Assessment Type of Contact [] Declined traffic attendant visit [] Patient/Family/Request visit [] Outpatient visit [] Follow-up visit [] Physician referral [] Code/Alert [] Routine visit [] Staff referral [] Actively dying [] Patient sleeping [] Family support [] [] Out of room [] Palliative care [] [] Receiving care in room [] Pre-surgical visit [] Trauma [] Long length of stay [] ICU visit [x] Other:Covid. No visit Relational/Emotional Strength [] Patient feels connected with others/family/visitors/staff [] Distress [] Loneliness/isolation [] Abandonment Spirituality of Patient [] Person of Ijeoma [] Attends Scientology of their Ijeoma [] Believes in Prayer [] Reads Bible or Baptism materials [] There are Spiritual issues to be addressed Power Hammer Operator Interventions [] Prayer [] Active listening [] Non-anxious presence [] Spiritual/emotional support [] Crisis/trauma care [] Spiritual counseling [] Bereavement support [] Provided bereavement packet [] Provided Bible/devotional materials [] Provided toy/stuffed animal, coloring book to patient or family member [] Provided Communion [] Anointing/[place] [] Salvation [] Completed spiritual assessment [] Other: Impact on Illness or Injury [] Angry [] Fearful [] Anxious [] Often cries [] Exhaustion [] Unable to work [] Unable to attend jehovah's witness [] Unable to walk/stand [] Unable to read [] Unable to drive [] Unable to eat/drink [] Unable to sleep [] Unable to be with family [] Patient intubated [] Other: Summary Time spent with patient
[2023-08-16] MEDS: ciprofloxacin 400 MG/200 ML PREMIX 200 MG IV ×2 (10:32→21:57)
[2023-08-16 10:41] LABS: Glucose Point of Care 86 mg/dL (70-110)
[2023-08-16 12:00] VITALS: BP 110/62; PULSE 87; RESP 17; TEMP 36.6; O2SAT 94
--- NOTE | 2023-08-16 14:01 | PC.SOCIAL ---
IMM Updated IMM updated with pt's family. No questions voiced. Provided pt a copy. Initialed, dated, & timed copy in chart.
--- NOTE | 2023-08-16 15:53 | PC.NURSE ---
Came to this RNs attention that mother has been eating part of pt meals, so I&O charting may be inaccurate. This RN added in for caregiver to obtain tray as well, to prevent mother from eating pt meals.
--- NOTE | 2023-08-16 15:58 | PC.NURSE ---
Pt and mother have been yelling at each other in room about meals, treatment options, channels on the television, etc. This RN, PROBATION AND PATROL AGENT, and other staff members have attempted to deescalate yelling on multiple attempts. Mother heard yelling, shut up! from another pt room. Family members in other rooms complaining about noise level. Pt's mother has had to be reoriented multiple times to situation and treatments. Mother has also been witnessed losing balance, almost falling into the floor. Situation escalated to charge nurse then to nursing clinical director.
[2023-08-16 16:00] VITALS: BP 124/71; PULSE 86; RESP 17; TEMP 36.9; O2SAT 97
--- NOTE | 2023-08-16 16:13 | PC.NURSE ---
I was informed of patient and guardian's behavior including both yelling at each other with complaints coming from adjoining rooms, guardian losing balance and almost falling, and overall agitation between the patient and guardian. I called and spoke with patient's niece, Mj Harvey, listed on PHI, and reviewed the above information with her, expressing concern for guardian as well as patient. She states that this could be normal since they have been cooped up together for multiple days. She states that she will come and get guardian and take her home for the night for rest and will bring her back tomorrow. I informed her another family member was encouraged and welcome to stay in guardian's place for support and supervision of patient. She is appreciative and verbalizes understanding.
[2023-08-16 16:58] LABS: Glucose Point of Care 190 mg/dL (70-110)
[2023-08-16] MEDS: insulin glargine 100 units/1 mL 10 UNIT SUBCUT (17:57)
[2023-08-16] MEDS: vancomycin 1,500 MG/300 ML PIGGYBACK 200 MG IV (17:58)
[2023-08-16 20:00] VITALS: BP 109/63; PULSE 99; RESP 17; TEMP 36.9; O2SAT 92
[2023-08-16] MEDS: enoxaparin 40 mg/0.4 mL Syringe SUBCUT (22:00)
--- NOTE | 2023-08-16 22:20 | P.PN_ITS ---
Subjective 2 Subjective: She states she feels slightly better. Swelling with slight decrease. Feels like there is something in her right ear canal that is bothering her she tells me while putting her finger in her ear. Denies using any Q-tips. Vitals/I&O/Wt Last Vital Signs Temp 98.5 F 08/16/23 20:00 Pulse 99 08/16/23 20:00 Resp 17 08/16/23 20:00 BP 109/63 08/16/23 20:00 Pulse Ox 92 08/16/23 20:00 O2 Del Method Room Air 08/16/23 16:00 08/16/23 08/16/23 08/16/23 06:59 14:59 22:59 Intake Total 300 / 3478.333 1535 / 1535 1300 / 2835 Balance 300 / 3478.333 1535 / 1535 1300 / 2835 Weight last 48 hrs Weight 89.811 kg Weight 89.811 kg Physical Exam 2 Narrative: Accompanied by mother. Const: COMMON NORMALS: patient oriented x3 and alert GENERAL APPEARANCE: n ot cooperative ORIENTATION/CONSCIOUSNESS: Yes awake HENMT: COMMON NORMALS: oropharynx normal OTHER: Right ear clear tympanic membrane, no fluid, no bleeding, no otitis externa, but some excoriation just slightly and from the entrance of the external auditory meatus. Similarly on the left side. Neck/C-Spine: COMMON NORMALS: no JVD Resp: COMMON NORMALS: normal respiratory effort and clear to auscultation bilaterally AUSCULTATION: clear to auscultation bilaterally Cardio: COMMON NORMALS: no JVD, regular rhythm, S1 normal heart sound present, S2 normal heart sound present and No murmurs present (Cardio) RHYTHM: regular rhythm HEART SOUNDS: S1 normal heart sound present and S2 normal heart sound present GI: COMMON NORMALS: Normal to inspection, nondistended, normoactive bowel sounds present, Soft to palpation and non-tender PALPATION: Yes Soft to palpation Extremity: COMMON NORMALS: no joint enlargement and no pedal edema N ARRATIVE EXTREMITY EXAM: Slight decrease in swelling. Erythema, warmth 2/3 lower right leg above the ankle. Horizontal fissure with ulcerization above the R ankle with shallow ulcer is filled with purulent secretion. Neuro: COMMON NORMALS: patient oriented x3 and moves all extremities S ENSORIUM/ORIENTATION: Yes alert Psych: MOOD & AFFECT: Yes anxious Skin: COMMON NORMALS: no rashes or lesions noted GENERAL SKIN EXAM: no rashes or lesions noted Data 08/16/23 05:37 08/16/23 05:37 Micro: Microbiology 08/15/23 06:00 Gram Stain - Final Ankle - Drainage Wound Culture - Preliminary A&P Assessment and plan (1) Cellulitis of leg, right: Subjectively feeling slightly better. Reviewed vitals, CBC, BMP, Mg. Reviewed blood culture, pending. Reviewed wound culture, few gram-positive cocci in pairs on Gram stain, no growth after 1 day so far. Afebrile. Leukocytosis has resolved. Still erythema, warmth of right lower extremity, swelling slightly better. She has been elevating it on a pillow. Less purulence at the shallow ulceration/fissure is above the right ankle. Severe extensive cellulitis of the right lower extremity unresponsive to outpatient treatment. With underlying diabetes, risk of deeper infection, loss of limb. Continue broad-spectrum antibiotics. Follow-up cultures. Continue to elevate. Reassess right lower extremity. Discussed with nursing and adult protective caseworker. Reviewed surgery note. Repeat CBC, BMP. Purulent cellulitis two thirds ulceration, pressurization with purulent secretion. Nonresolving, with failed outpatient treatment, has completed antibiotics prescribed during prior admission discharged on 08/08. With diabetes, risk of progression of infection, abscess, loss of limb. Risk of renal dysfunction with vancomycin, reassess renal function. (2) Type 2 diabetes mellitus with obesity: Reviewed glucose, Accu-Cheks, under better control. Difficult to control blood glucose due to infection. Lantus 10 units twice daily. Will escalate depending on glucose. Continue sliding scale insulin. Monitor blood glucose. Plan Hypokalemia: Replaced. Reviewed potassium. Reviewed magnesium. Discomfort/fullness of the right ear: On exam clear tympanic membrane, no fluid, no bleeding, no signs of otitis media or externa, although there is some excoriation noted just slightly into the meatus, she seems to putting her fingers in her ears, conseled her to avoid scratching inside her ear with her fingernails. She and her mother verbalized understanding. HTN: Monitor BPs Bronchospasm Anxiety Mixed hyperlipidemia Cerebral palsied Neurodevelopmental disorder: mother who is also DPOA will be staying with her. Attestations 2 Medical Necessity Statement*: Admission over 2 midnights anticipated for assessment management of nonresolving purulent cellulitis, failed outpatient treatment. Diagnoses Cellulitis of leg, right L03.115 Type 2 diabetes mellitus with obesity E11.69; E66.9
[2023-08-16 22:41] LABS: Glucose Point of Care 240 mg/dL (70-110)
[2023-08-17] VITALS (8 sets, daily range): BP systolic 105–147; BP diastolic 54–82; PULSE 81–98; RESP 14–18; TEMP 36.8–37.1; O2SAT 91–96
[2023-08-17] MEDS: insulin lispro 100 unit/1 mL 10 UNIT SUBCUT ×3 (06:49→18:02)
[2023-08-17 06:59] LABS: Glucose Point of Care 126 mg/dL (70-110)
[2023-08-17 08:05] LABS: Glucose Point of Care 89 mg/dL (70-110)
--- NOTE | 2023-08-17 09:25 | P.PN_ITS ---
Subjective 2 Subjective: Patient has remained stable, there is still erythema on the right lower extremity but patient feels subjectively better. Patient is adamant that she would like to go home, does not complain of significant pain on the left. Vitals/I&O/Wt Last Vital Signs Temp 98.4 F 08/17/23 08:00 Pulse 81 08/17/23 08:00 Resp 14 08/17/23 08:00 BP 105/54 08/17/23 08:00 Pulse Ox 91 08/17/23 08:00 O2 Del Method Room Air 08/17/23 00:00 08/16/23 08/17/23 08/17/23 22:59 06:59 14:59 Intake Total 1300 / 2835 200 / 3035 Output Total 250 / 250 Balance 1300 / 2835 -50 / 2785 Weight last 48 hrs Weight 198 lb Weight 198 lb Physical Exam 2 Extremity: NARRATIVE EXTREMITY EXAM: Right lower extremity with erythema up to the mid calf. Edema and erythema have improved from previous evaluations, there is ulceration and crusting on the anterior portion of the ankle with this consistent with chronic changes and at the moment wound appears dry without significant exudate. Data 08/16/23 05:37 08/16/23 05:37 Micro: Microbiology 08/15/23 06:00 Gram Stain - Final Ankle - Drainage Wound Culture - Preliminary A&P Assessment and plan (1) Cellulitis of leg, right: Plan Good progression of right lower extremity cellulitis. No surgical intervention is planned at this time. Patient will benefit from follow-up at the wound care center after discharge for possible hyperbaric oxygen therapy, debridement of anterior ankle wounds and Unna boot placement. All other management per medical team. Attestations 2 Medical Necessity Statement*: Per medical team. Coding Level of Care Code Acute Code for [facility] Fwd Diagnoses Cellulitis of leg, right L03.115
[2023-08-17] MEDS: ciprofloxacin 400 MG/200 ML PREMIX 200 MG IV ×2 (09:51→20:45)
[2023-08-17] MEDS: lactated ringers 1,000 ML 100 ML IV ×2 (09:52→18:02)
[2023-08-17 12:18] LABS: Glucose Point of Care 205 mg/dL (70-110)
[2023-08-17 12:29] LABS: Vancomycin Trough 7.2 ug/mL (10-15)
[2023-08-17] MEDS: vancomycin 1,500 MG/300 ML PIGGYBACK 200 MG IV (12:48)
[2023-08-17] MEDS: insulin lispro 100 unit/1 mL SUBCUT ×2 (12:49→18:02)
[2023-08-17 17:33] LABS: Glucose Point of Care 187 mg/dL (70-110)
[2023-08-17] MEDS: insulin glargine 100 units/1 mL 10 UNIT SUBCUT (18:02)
--- NOTE | 2023-08-17 18:44 | PC.NURSE ---
During AM assessment, this RN outlined redness to the right foot/leg and elevated extremity. During afternoon reassessment, redness went beyond outline moving up the leg. Notified Dr. [place]. No new orders at this time.
--- NOTE | 2023-08-17 18:45 | PC.NURSE ---
Pt's guardian/mother would like to switch DPKESHAV to asael Gaston. [place] agrees that she would like guardianship of pt - requests help from Case Management. Notified Charge Nurse to start process on Saturday when Case Management returns.
--- NOTE | 2023-08-17 19:38 | P.PN_ITS ---
Subjective 2 Subjective: Swelling with improvement. Upon entering the room she has her foot down to the floor, but promptly puts it up on the pillow, request to put an additional pillow under her leg. Vitals/I&O/Wt Last Vital Signs Temp 98.3 F 08/17/23 19:31 Pulse 87 08/17/23 19:31 Resp 16 08/17/23 19:31 BP 127/73 08/17/23 19:31 Pulse Ox 96 08/17/23 19:31 O2 Del Method Room Air 08/17/23 12:00 08/17/23 08/17/23 08/17/23 06:59 14:59 22:59 Intake Total 200 / 3035 1560 / 1560 1338.667 / 2898.667 Output Total 250 / 250 Balance -50 / 2785 1560 / 1560 1338.667 / 2898.667 Weight last 48 hrs Weight 89.811 kg Weight 89.811 kg Physical Exam 2 Narrative: Accompanied by mother. Const: COMMON NORMALS: patient oriented x3 and alert GENERAL APPEARANCE: n ot cooperative ORIENTATION/CONSCIOUSNESS: Yes awake HENMT: COMMON NORMALS: oropharynx normal Neck/C-Spine: COMMON NORMALS: no JVD Resp: COMMON NORMALS: normal respiratory effort and clear to auscultation bilaterally AUSCULTATION: clear to auscultation bilaterally Cardio: COMMON NORMALS: no JVD, regular rhythm, S1 normal heart sound present, S2 normal heart sound present and No murmurs present (Cardio) RHYTHM: regular rhythm HEART SOUNDS: S1 normal heart sound present and S2 normal heart sound present GI: COMMON NORMALS: Normal to inspection, nondistended, normoactive bowel sounds present, Soft to palpation and non-tender PALPATION: Yes Soft to palpation Extremity: COMMON NORMALS: no joint enlargement and no pedal edema N ARRATIVE EXTREMITY EXAM: Slight decrease in swelling. Erythema, warmth 2/3 lower right leg above the ankle. Horizontal fissure with ulcerization above the R ankle with shallow ulcer is filled with purulent secretion. Neuro: COMMON NORMALS: patient oriented x3 and moves all extremities S ENSORIUM/ORIENTATION: Yes alert Psych: MOOD & AFFECT: Yes anxious Skin: COMMON NORMALS: no rashes or lesions noted GENERAL SKIN EXAM: no rashes or lesions noted Data 08/16/23 05:37 08/16/23 05:37 Micro: Microbiology 08/15/23 06:00 Gram Stain - Final Ankle - Drainage Wound Culture - Final 08/14/23 18:55 Blood Culture - Preliminary Blood 08/14/23 18:23 Blood Culture - Preliminary Blood A&P Assessment and plan (1) Cellulitis of leg, right: Slow improvement in extensive cellulitis of right lower extremity. Some improvement in swelling. She is elevating her leg. Persistent erythema not reduced in area, but slightly less intense. Subjectively feeling slightly better. CBC and BMP were requested but not available from today when reviewing. Follow- up labs. Reviewed blood culture, wound culture. No growth so far. Stop LR. Continue broad-spectrum IV antibiotics. Follow-up cultures. Continue to elevate. Reassess right lower extremity. Reviewed Vanctrough. Reviewed vancomycin dose adjustment. Purulent cellulitis two thirds ulceration, pressurization with purulent secretion. With underlying diabetes. Nonresolving, with failed outpatient treatment, has completed antibiotics prescribed during prior admission discharged on 08/08. With diabetes, risk of progression of infection, abscess, loss of limb. Risk of renal dysfunction with vancomycin, reassess renal function. (2) Type 2 diabetes mellitus with obesity: Reviewed Accu-Cheks. Continue current treatment. Difficult to control blood glucose due to infection. Lantus 10 units twice daily. Will escalate depending on glucose. Continue sliding scale insulin. Monitor blood glucose. Plan Hypokalemia: Replaced. Reviewed potassium. Reviewed magnesium. Discomfort/fullness of the right ear: On exam clear tympanic membrane, no fluid, no bleeding, no signs of otitis media or externa, although there is some excoriation noted just slightly into the meatus, she seems to putting her fingers in her ears, conseled her to avoid scratching inside her ear with her fingernails. She and her mother verbalized understanding. HTN: Monitor BPs Bronchospasm Anxiety Mixed hyperlipidemia Cerebral palsied Neurodevelopmental disorder: mother who is also DPOA will be staying with her. Attestations 2 Medical Necessity Statement*: Admission over 2 midnights anticipated for assessment management of nonresolving purulent cellulitis, failed outpatient treatment. Diagnoses Cellulitis of leg, right L03.115 Type 2 diabetes mellitus with obesity E11.69; E66.9
[2023-08-17] MEDS: enoxaparin 40 mg/0.4 mL Syringe SUBCUT (20:44)
[2023-08-17 21:07] LABS: Glucose Point of Care 94 mg/dL (70-110)
[2023-08-18] MEDS: vancomycin 1,500 MG/300 ML PIGGYBACK 200 MG IV ×2 (00:41→12:45)
[2023-08-18 03:51] VITALS: BP 142/78; PULSE 83; RESP 20; TEMP 36.7; O2SAT 95
[2023-08-18 07:53] LABS: Glucose Point of Care 169 mg/dL (70-110)
[2023-08-18 08:00] VITALS: BP 153/81; PULSE 84; RESP 18; TEMP 36.8; O2SAT 98
[2023-08-18] MEDS: insulin lispro 100 unit/1 mL SUBCUT ×3 (09:46→22:08)
[2023-08-18] MEDS: ciprofloxacin 400 MG/200 ML PREMIX 200 MG IV ×2 (09:47→20:06)
[2023-08-18] MEDS: insulin glargine 100 units/1 mL 10 UNIT SUBCUT (09:56)
[2023-08-18 12:00] VITALS: BP 133/80; PULSE 82; RESP 18; TEMP 36.8; O2SAT 96
[2023-08-18 12:11] LABS: Glucose Point of Care 353 mg/dL (70-110)
[2023-08-18] MEDS: insulin lispro 100 unit/1 mL 10 UNIT SUBCUT (12:44)
[2023-08-18 13:08] LABS: Basophils % 0.6 %; Eosinophils # 0.1 10^3/uL (0.0-0.8); Eosinophils % 1.4 %; Hematocrit 30.8 % (36-47); Lymphocytes # 1.1 10^3/uL (0.8-4.8); Lymphocytes % 15.2 %; Mean Corpuscular HGB Conc 31.5 g/dL (30-55); Mean Corpuscular Volume 95.4 fl (85-98); Mean Platelet Volume 8.5 fL (7.4-10.4); Monocytes # 0.7 10^3/uL (0.2-0.9); Monocytes % 10.1 %; Neutrophils # 5.09 10^3/uL (1.8-7.7); Nucleated Red Blood Cells % 0 %; Platelet Count 428 10^3/cmm (157-399); Red Blood Count 3.23 10^6/uL (3.85-5.65); Red Cell Distribution Width 12.3 % (12.1-15.1); White Blood Count 7.06 10^3/uL (3.29-11.43)
[2023-08-18 13:32] LABS: Anion Gap 14.4 (5-19); Blood Urea Nitrogen 4 mg/dL (8-23); Carbon Dioxide 26 mmol/L (22-29); Chloride 103 mmol/L (98-107); Glucose 337 mg/dL (65-115); Osmolality Calculated 298 mOsm/kg (285-295); Potassium 4.4 mmol/L (3.5-5.1); Sodium 139 mmol/L (136-145)
[2023-08-18 16:00] VITALS: BP 130/66; PULSE 85; RESP 18; TEMP 36.9; O2SAT 97
[2023-08-18 16:25] VITALS: RESP 18
[2023-08-18] MEDS: morphine 4 mg/mL SDV 1 mL 2 MG IVP (16:25)
[2023-08-18 16:29] LABS: Glucose Point of Care 83 mg/dL (70-110)
--- NOTE | 2023-08-18 17:59 | PC.NURSE ---
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 I explained to her that at this point she is becoming a liability. We have helped her around the room several times and she has almost fell or tripped over things in the room. She is also incontinent and keeps soiling the neighboring bed resulting in several bed changes. I explained that we may also need that bed tomorrow with patients coming in and I would hate to ask her to sleep in a chair at bedside. Marilin explained that she was on her way home from [place], [place] and is about an hour away. She is going to call another family member who lives in [facility] to see if she would be able to make it quicker and if not, Marilin will be here in about an hour.
[2023-08-18] MEDS: enoxaparin 40 mg/0.4 mL Syringe SUBCUT (18:27)
[2023-08-18 19:13] VITALS: BP 111/57; PULSE 98; RESP 16; TEMP 36.8; O2SAT 95
--- NOTE | 2023-08-18 19:24 | P.PN_ITS ---
Subjective 2 Subjective: She states subjectively her right leg feels better. However she also repeats this several times. Vitals/I&O/Wt Last Vital Signs Temp 98.2 F 08/18/23 19:13 Pulse 98 08/18/23 19:13 Resp 16 08/18/23 19:13 BP 111/57 08/18/23 19:13 Pulse Ox 95 08/18/23 19:13 O2 Del Method Room Air 08/18/23 19:13 08/18/23 08/18/23 08/18/23 06:59 14:59 22:59 Intake Total 300.000 / 3675.334 1460 / 1460 Output Total 700 / 3700 550 / 550 1000 / 1550 Balance -400.000 / -24.666 910 / 910 -1000 / -90 Weight last 48 hrs Weight 89.811 kg Physical Exam 2 Narrative: Accompanied by mother. Const: COMMON NORMALS: patient oriented x3 and alert GENERAL APPEARANCE: n ot cooperative ORIENTATION/CONSCIOUSNESS: Yes awake HENMT: COMMON NORMALS: oropharynx normal Neck/C-Spine: COMMON NORMALS: no JVD Resp: COMMON NORMALS: normal respiratory effort and clear to auscultation bilaterally AUSCULTATION: clear to auscultation bilaterally Cardio: COMMON NORMALS: no JVD, regular rhythm, S1 normal heart sound present, S2 normal heart sound present and No murmurs present (Cardio) RHYTHM: regular rhythm HEART SOUNDS: S1 normal heart sound present and S2 normal heart sound present GI: COMMON NORMALS: Normal to inspection, nondistended, normoactive bowel sounds present, Soft to palpation and non-tender PALPATION: Yes Soft to palpation Extremity: COMMON NORMALS: no joint enlargement and no pedal edema N ARRATIVE EXTREMITY EXAM: Decrease in swelling. Erythema, warmth 3/4 lower right leg above the ankle. Horizontal fissure with ulcerization, fissurization, eschar above the R ankle with ulcers. Some scaling of dry skin. Neuro: COMMON NORMALS: patient oriented x3 and moves all extremities S ENSORIUM/ORIENTATION: Yes alert Psych: MOOD & AFFECT: Yes anxious Skin: COMMON NORMALS: no rashes or lesions noted GENERAL SKIN EXAM: no rashes or lesions noted Data 08/18/23 13:03 08/18/23 13:03 Micro: Microbiology 01/18/24 06:00 Gram Stain - Final Ankle - Drainage Wound Culture - Final A&P Assessment and plan (1) Cellulitis of leg, right: Still extensive erythema of right lower extremity up to about three quarters [address] way up above the ankle. Ulceration, pressurization of the above the ankle. Further purulent drainage. Swelling decreasing. Vancomycin dose adjusted, vanc troughwas low. encouraged elevating her leg. Persistent erythema not reduced in area, but slightly less intense. Nursing staff encouraged adherence with consistent carbohydrate diet. Did require IV morphine for pain today. Will renew for now. Reviewed CBC and BMP. Reviewed wound and blood culture.Has been on antibiotics preadmission. Unfortunately cultures have not been helpful. Continue ciprofloxacin, vancomycin. Risk of renal dysfunction with vancomycin, reassess renal function. Continue broad-spectrum IV antibiotics. Follow-up cultures. Continue to elevate. Reassess right lower extremity. Review with case management tomorrow. She would like to try to return home to continue IV antibiotics today. Purulent cellulitis with ulceration, purulent secretion. With underlying diabetes. Nonresolving, with failed outpatient treatment, has completed antibiotics prescribed during prior admission discharged on 08/08. With diabetes, risk of progression of infection, abscess, loss of limb. (2) Type 2 diabetes mellitus with obesity: Reviewed Accu-Cheks. Continue current treatment. Difficult to control blood glucose due to infection. Lantus 10 units twice daily. Will escalate depending on glucose. Continue sliding scale insulin. Monitor blood glucose. Plan Hypokalemia: Replaced. Reviewed potassium. Reviewed magnesium. Discomfort/fullness of the right ear: On exam clear tympanic membrane, no fluid, no bleeding, no signs of otitis media or externa, although there is some excoriation noted just slightly into the meatus, she seems to putting her fingers in her ears, conseled her to avoid scratching inside her ear with her fingernails. She and her mother verbalized understanding. HTN: Monitor BPs Bronchospasm Anxiety Mixed hyperlipidemia Cerebral palsied Neurodevelopmental disorder: mother who is also DPOA will be staying with her. Attestations 2 Medical Necessity Statement*: Admission over 2 midnights anticipated for assessment management of nonresolving purulent cellulitis, failed outpatient treatment. and High MDM includes described risk of complication, morbidity or mortality of management as documented Diagnoses Cellulitis of leg, right L03.115 Type 2 diabetes mellitus with obesity E11.69; E66.9
[2023-08-18 20:50] LABS: Glucose Point of Care 300 mg/dL (70-110)
[2023-08-19] VITALS: BP 132/69; PULSE 88; RESP 16; TEMP 36.6; O2SAT 96
[2023-08-19] MEDS: vancomycin 1,500 MG/300 ML PIGGYBACK 200 MG IV ×2 (01:44→12:45)
[2023-08-19 04:00] VITALS: BP 123/65; PULSE 83; RESP 16; TEMP 36.8; O2SAT 98
[2023-08-19] MEDS: insulin lispro 100 unit/1 mL 10 UNIT SUBCUT ×2 (06:25→12:45)
[2023-08-19 06:55] LABS: Glucose Point of Care 164 mg/dL (70-110)
[2023-08-19 08:00] VITALS: BP 119/65; PULSE 79; RESP 20; TEMP 36.9; O2SAT 96
--- NOTE | 2023-08-19 08:19 | PC.SOCIAL ---
IMM Update Pg. 2 of IMM updated and reviewed with patient's mother who verbalized understanding. Copy provided.
[2023-08-19] MEDS: insulin glargine 100 units/1 mL 10 UNIT SUBCUT (08:52)
[2023-08-19] MEDS: insulin lispro 100 unit/1 mL SUBCUT ×3 (08:52→21:12)
[2023-08-19] MEDS: ciprofloxacin 400 MG/200 ML PREMIX 200 MG IV (09:02)
[2023-08-19 11:45] LABS: Glucose Point of Care 258 mg/dL (70-110)
[2023-08-19 12:00] VITALS: BP 138/78; PULSE 98; RESP 18; TEMP 37.3; O2SAT 97
[2023-08-19 12:50] LABS: Vancomycin Trough 15.1 ug/mL (10-15)
--- NOTE | 2023-08-19 14:31 | CT_ITS ---
WS: [id number] CT lower leg RT w con [id number] REASON FOR EXAM: cellulitis, possible abscess IV CONTRAST ADMINISTERED: 100 mL of Omnipaque 350. TOTAL EXAM DLP: 596.[address] scans at [facility] use at least one of these dose optimization techniques: automat ed exposure control; mA and/or kV adjustment per patient size (includes targeted exams where dose is matched to clinical indication); or iterative reconstruction. FINDINGS: No bone abnormality. Hazy ill-defined density of the subcutaneous fat with extensive thickening of the septations within t he fat from the ankle to the knee is thickening and enhancement of the deep fascia encompassing the m uscle groups of the lower leg. Ill-defined soft tissue density that extends from the deep fascia to t he skin surface with complete loss of fat density. This is an extensive abnormality that extends from the ankle to above the knee along the lateral aspect of the lower leg. There is intact fat within muscle and no definite areas of myositis, myonecrosis or focal abscess. No gas is identified within the soft tissues of the lower right leg. IMPRESSION: Deep cellulitis and fasciitis of the right lower extremity which extends from the ankle to above the knee. Necrotizing fasciitis would have to be considered.
[2023-08-19 15:12] LABS: Basophils % 0.6 %; Eosinophils # 0.1 10^3/uL (0.0-0.8); Eosinophils % 1.5 %; Hematocrit 28.3 % (36-47); Lymphocytes # 1.1 10^3/uL (0.8-4.8); Lymphocytes % 15.2 %; Mean Corpuscular HGB Conc 31.8 g/dL (30-55); Mean Corpuscular Volume 94.3 fl (85-98); Mean Platelet Volume 8.6 fL (7.4-10.4); Monocytes # 0.8 10^3/uL (0.2-0.9); Monocytes % 11.3 %; Neutrophils # 5.03 10^3/uL (1.8-7.7); Neutrophils % 70.7 %; Nucleated Red Blood Cells % 0 %; Platelet Count 443 10^3/cmm (157-399); Red Cell Distribution Width 12.5 % (12.1-15.1); White Blood Count 7.11 10^3/uL (3.29-11.43)
[2023-08-19 15:37] LABS: Alanine Aminotransferase < 5 U/L (0-33); Albumin Level 2.4 g/dL (3.5-5.2); Alkaline Phosphatase 108 U/L (35-105); Anion Gap 14.7 (5-19); Aspartate Amino Transferase 6 U/L (0-32); Blood Urea Nitrogen 6 mg/dL (8-23); Calcium 8.3 mg/dL (8.5-10.5); Carbon Dioxide 27 mmol/L (22-29); Chloride 101 mmol/L (98-107); Globulin 3.3 g/dL (1.3-4.6); Glucose 258 mg/dL (65-115); Osmolality Calculated 294 mOsm/kg (285-295); Potassium 3.7 mmol/L (3.5-5.1); Sodium 139 mmol/L (136-145); Total Bilirubin 0.2 mg/dL (0.15-1.2); Total Protein 5.7 g/dL (6.6-8.7)
[2023-08-19 16:00] VITALS: BP 146/66; PULSE 76; RESP 18; TEMP 36.8; O2SAT 95
[2023-08-19] MEDS: iohexol 350 mg/mL 500 mL Btl (per mL) IV (16:04)
--- NOTE | 2023-08-19 17:01 | P.PN_ITS ---
Subjective 2 Subjective: Hospital course, labs appreciated. Seen with mother at bedside. Patient is pleasant, awake and alert at her baseline mentation. Denies any nausea vomiting, headache. Has remained hemodynamically stable and afebrile. Vitals/I&O/Wt Last Vital Signs Temp 99.2 F 08/19/23 12:00 Pulse 98 08/19/23 12:00 Resp 18 08/19/23 12:00 BP 138/78 08/19/23 12:00 Pulse Ox 97 08/19/23 12:00 O2 Del Method Room Air 08/19/23 04:00 08/19/23 08/19/23 08/19/23 06:59 14:59 22:59 Intake Total 300 / 1960 2019 Output Total 1100 / 2650 400 / 400 Balance -800 / -690 1620 / 1620 Weight last 48 hrs Weight 82.582 kg Physical Exam 2 Narrative: Accompanied by mother. Const: COMMON NORMALS: patient oriented x3 and alert GENERAL APPEARANCE: n ot cooperative ORIENTATION/CONSCIOUSNESS: Yes awake HENMT: COMMON NORMALS: oropharynx normal OTHER: Right ear clear tympanic membrane, no fluid, no bleeding, no otitis externa, but some excoriation just slightly and from the entrance of the external auditory meatus. Similarly on the left side. Neck/C-Spine: COMMON NORMALS: no JVD Resp: COMMON NORMALS: normal respiratory effort and clear to auscultation bilaterally AUSCULTATION: clear to auscultation bilaterally Cardio: COMMON NORMALS: no JVD, regular rhythm, S1 normal heart sound present, S2 normal heart sound present and No murmurs present (Cardio) RHYTHM: regular rhythm HEART SOUNDS: S1 normal heart sound present and S2 normal heart sound present GI: COMMON NORMALS: Normal to inspection, nondistended, normoactive bowel sounds present, Soft to palpation and non-tender PALPATION: Yes Soft to palpation Extremity: COMMON NORMALS: no joint enlargement and no pedal edema N ARRATIVE EXTREMITY EXAM: Decrease in swelling. Erythema, warmth 3/4 lower right leg above the ankle. Horizontal fissure with ulcerization, fissurization, eschar above the R ankle with ulcers. Some scaling of dry skin. Neuro: COMMON NORMALS: patient oriented x3 and moves all extremities S ENSORIUM/ORIENTATION: Yes alert Psych: MOOD & AFFECT: Yes anxious Skin: COMMON NORMALS: no rashes or lesions noted GENERAL SKIN EXAM: no rashes or lesions noted Data 08/19/23 11:55 08/19/23 11:55 A&P Assessment and plan (1) Cellulitis of leg, right: Still extensive erythema of right lower extremity up to about three quarters [address] way up above the ankle. Ulceration, pressurization of the above the ankle. Further purulent drainage. Swelling decreasing. Vancomycin dose adjusted, vanc troughwas low. encouraged elevating her leg. Persistent erythema not reduced in area, but slightly less intense. Nursing staff encouraged adherence with consistent carbohydrate diet. Did require IV morphine for pain today. Will renew for now. Reviewed CBC and BMP. Reviewed wound and blood culture.Has been on antibiotics preadmission. Unfortunately cultures have not been helpful. Continue ciprofloxacin, vancomycin. Risk of renal dysfunction with vancomycin, reassess renal function. Continue broad-spectrum IV antibiotics. Follow-up cultures. Continue to elevate. Reassess right lower extremity. Review with case management tomorrow. She would like to try to return home to continue IV antibiotics today. Purulent cellulitis with ulceration, purulent secretion. With underlying diabetes. Nonresolving, with failed outpatient treatment, has completed antibiotics prescribed during prior admission discharged on 08/08. With diabetes, risk of progression of infection, abscess, loss of limb. (2) Type 2 diabetes mellitus with obesity: Reviewed Accu-Cheks. Continue current treatment. Difficult to control blood glucose due to infection. Lantus 10 units twice daily. Will escalate depending on glucose. Continue sliding scale insulin. Monitor blood glucose. Plan Hypokalemia: Replaced. Reviewed potassium. Reviewed magnesium. Discomfort/fullness of the right ear: On exam clear tympanic membrane, no fluid, no bleeding, no signs of otitis media or externa, although there is some excoriation noted just slightly into the meatus, she seems to putting her fingers in her ears, conseled her to avoid scratching inside her ear with her fingernails. She and her mother verbalized understanding. HTN: Monitor BPs Bronchospasm Anxiety Mixed hyperlipidemia Cerebral palsied Neurodevelopmental disorder: mother who is also DPOA will be staying with her. Plan for the day: Given slow improvement on cellulitis will repeat CT leg with contrast to rule out underlying abscess. Patient has remained afebrile. Check CBC, CMP. Cultures so far negative. Wound care with Hydrofera Blue. For now continue with IV vancomycin and switch to meropenem. Few episodes of hypoglycemia in between. Hold off on 10 units 3 times daily. Continue with sliding scale and Lantus 20 units twice daily. Plan for midline placement. Cultures so far remain negative. Will plan to discharge on IV ertapenem to finish a 10-day course along with aggressive wound care as an outpatient. Will consult case management for possible home health. Attestations 2 Medical Necessity Statement*: Requires further hospitalization for management of cellulitis of right leg while abscess is ruled out, necrotizing fasciitis was ruled out and outpatient IV antibiotics are set up Diagnoses Cellulitis of leg, right L03.115 Type 2 diabetes mellitus with obesity E11.69; E66.9
--- NOTE | 2023-08-19 17:40 | SUR.PREOP ---
TIME OUT FOR MIDLINE INSERTION
[2023-08-19] MEDS: meropenem 1,000 MG in sodium chloride 0.9% (plus) 50 ML 100 MG IV (17:57)
[2023-08-19] MEDS: enoxaparin 40 mg/0.4 mL Syringe SUBCUT (17:57)
[2023-08-19 18:57] LABS: Glucose Point of Care 163 mg/dL (70-110)
[2023-08-19 20:00] VITALS: BP 133/78; PULSE 92; RESP 17; TEMP 37; O2SAT 96
[2023-08-19 20:53] LABS: Glucose Point of Care 251 mg/dL (70-110)
[2023-08-19] MEDS: insulin glargine 100 units/1 mL 20 UNIT SUBCUT (21:12)
[2023-08-20] VITALS (7 sets, daily range): BP systolic 113–137; BP diastolic 65–77; PULSE 79–95; RESP 16–18; TEMP 36.2–37.1; O2SAT 94–99
[2023-08-20] MEDS: vancomycin 1,500 MG/300 ML PIGGYBACK 200 MG IV ×2 (00:57→12:23)
[2023-08-20] MEDS: meropenem 1,000 MG in sodium chloride 0.9% (plus) 50 ML 100 MG IV ×2 (00:58→17:38)
[2023-08-20] MEDS: acetaminophen 325 mg Tablet 650 MG PO (03:27)
[2023-08-20 06:01] LABS: Basophils % 0.6 %; Eosinophils # 0.1 10^3/uL (0.0-0.8); Eosinophils % 1.7 %; Hematocrit 27.8 % (36-47); Lymphocytes # 1.1 10^3/uL (0.8-4.8); Lymphocytes % 17.1 %; Mean Corpuscular HGB Conc 31.3 g/dL (30-55); Mean Corpuscular Hemoglobin 30.1 pg (27-33); Mean Corpuscular Volume 96.2 fl (85-98); Mean Platelet Volume 8.3 fL (7.4-10.4); Monocytes # 0.8 10^3/uL (0.2-0.9); Neutrophils # 4.24 10^3/uL (1.8-7.7); Nucleated Red Blood Cells % 0 %; Platelet Count 382 10^3/cmm (157-399); Red Blood Count 2.89 10^6/uL (3.85-5.65); Red Cell Distribution Width 12.6 % (12.1-15.1); White Blood Count 6.33 10^3/uL (3.29-11.43)
[2023-08-20 06:36] LABS: Alanine Aminotransferase < 5 U/L (0-33); Albumin Level 2.3 g/dL (3.5-5.2); Alkaline Phosphatase 94 U/L (35-105); Anion Gap 10.8 (5-19); Aspartate Amino Transferase 5 U/L (0-32); Blood Urea Nitrogen 5 mg/dL (8-23); Calcium 8.5 mg/dL (8.5-10.5); Carbon Dioxide 28 mmol/L (22-29); Chloride 104 mmol/L (98-107); Globulin 2.9 g/dL (1.3-4.6); Glucose 172 mg/dL (65-115); Osmolality Calculated 289 mOsm/kg (285-295); Potassium 3.8 mmol/L (3.5-5.1); Sodium 139 mmol/L (136-145); Total Bilirubin 0.2 mg/dL (0.15-1.2); Total Protein 5.2 g/dL (6.6-8.7)
[2023-08-20 06:39] LABS: Glucose Point of Care 183 mg/dL (70-110)
[2023-08-20] MEDS: meropenem 1,000 MG in sodium chloride 0.9% (plus) 50 ML 12.5 MG IV (08:11)
[2023-08-20] MEDS: insulin lispro 100 unit/1 mL SUBCUT ×4 (08:11→22:31)
[2023-08-20 10:57] LABS: Glucose Point of Care 173 mg/dL (70-110)
--- NOTE | 2023-08-20 15:08 | P.PN_ITS ---
Subjective 2 Subjective: 72-year-old female with history of devel opmental delay who presented with cellulitis of the right lower extremity and ulcerations on the anterior ankle. I have been following the patient while in-house. Over the last 48 hours there has been significant improvement of the swelling and also of the erythema of the leg, crusting of the level of the anterior ankle appears to be more dry than before. Vitals/I&O/Wt Last Vital Signs Temp 97.2 F L 08/20/23 11:56 Pulse 80 08/20/23 11:56 Resp 17 08/20/23 11:56 BP 126/65 08/20/23 11:56 Pulse Ox 99 08/20/23 11:56 O2 Del Method Room Air 08/20/23 11:56 08/20/23 08/20/23 08/20/23 06:59 14:59 22:59 Intake Total 350 / 3140 830 / 830 Balance 350 / 2740 830 / 830 Weight last 48 hrs Weight 176 lb 3.2 oz Weight 182 lb 1 oz Physical Exam 2 Extremity: NARRATIVE EXTREMITY EXAM: There is improvement on swelling and redness on the right lower extremity, crusting on the anterior ankle appears to be more superficial on the right now, I was able to remove this crusting with a 4 x 4. Underlying the crusting there is healthy tissue base with minimal slough. Data 08/20/23 05:54 08/20/23 05:54 A&P Assessment and plan (1) Cellulitis of leg, right: Plan 22-year-old female with history of lymphedema on the right lower extremity who presented with cellulitis. After my evaluation I decided to proceed with local wound care, this was done with saline and a moist gauze to remove all the excess skin and crusting on the anterior ankle. There was a minimal area of about 3 to 4 cm of crusting on the lateral aspect of the anterior ankle that I was not able to remove as patient physically opposed to me from doing it. After removal of the crusting and verifying that the wound appeared to be improving I decided to put an Unna boot dressing in order to facilitate healing. Unna boot dressing can be changed at the wound care clinic in 1 week, after that patient may benefit from hyperbaric oxygen and sequential debridements. Attestations 2 Medical Necessity Statement*: Per medical team Coding Level of Care Code Acute Code for Chg Fwd Diagnoses Cellulitis of leg, right L03.115
--- NOTE | 2023-08-20 15:21 | P.PN_ITS ---
Subjective 2 Subjective: No acute events overnight. Patient has remained hemodynamically stable and afebrile. Received midline placement yesterday. Denies any nausea, vomiting, headache. Denies any pain in the leg. Currently wrapped in dressing. Vitals/I&O/Wt Last Vital Signs Temp 97.2 F L 08/20/23 11:56 Pulse 80 08/20/23 11:56 Resp 17 08/20/23 11:56 BP 126/65 08/20/23 11:56 Pulse Ox 99 08/20/23 11:56 O2 Del Method Room Air 08/20/23 11:56 08/20/23 08/20/23 08/20/23 06:59 14:59 22:59 Intake Total 350 / 3140 830 / 830 Balance 350 / 2740 830 / 830 Weight last 48 hrs Weight 79.923 kg Weight 82.582 kg Physical Exam 2 Narrative: Accompanied by mother. Const: COMMON NORMALS: patient oriented x3 and alert GENERAL APPEARANCE: n ot cooperative ORIENTATION/CONSCIOUSNESS: Yes awake HENMT: COMMON NORMALS: oropharynx normal OTHER: Right ear clear tympanic membrane, no fluid, no bleeding, no otitis externa, but some excoriation just slightly and from the entrance of the external auditory meatus. Similarly on the left side. Neck/C-Spine: COMMON NORMALS: no JVD Resp: COMMON NORMALS: normal respiratory effort and clear to auscultation bilaterally AUSCULTATION: clear to auscultation bilaterally Cardio: COMMON NORMALS: no JVD, regular rhythm, S1 normal heart sound present, S2 normal heart sound present and No murmurs present (Cardio) RHYTHM: regular rhythm HEART SOUNDS: S1 normal heart sound present and S2 normal heart sound present GI: COMMON NORMALS: Normal to inspection, nondistended, normoactive bowel sounds present, Soft to palpation and non-tender PALPATION: Yes Soft to palpation Extremity: COMMON NORMALS: no joint enlargement and no pedal edema N ARRATIVE EXTREMITY EXAM: Decrease in swelling. Erythema, warmth 3/4 lower right leg above the ankle. Horizontal fissure with ulcerization, fissurization, eschar above the R ankle with ulcers. Some scaling of dry skin. Neuro: COMMON NORMALS: patient oriented x3 and moves all extremities S ENSORIUM/ORIENTATION: Yes alert Psych: MOOD & AFFECT: Yes anxious Skin: COMMON NORMALS: no rashes or lesions noted GENERAL SKIN EXAM: no rashes or lesions noted Data 08/20/23 05:54 08/20/23 05:54 A&P Assessment and plan (1) Cellulitis of leg, right: Still extensive erythema of right lower extremity up to about three quarters [address] way up above the ankle. Ulceration, pressurization of the above the ankle. Further purulent drainage. Swelling decreasing. Vancomycin dose adjusted, vanc troughwas low. encouraged elevating her leg. Persistent erythema not reduced in area, but slightly less intense. Nursing staff encouraged adherence with consistent carbohydrate diet. Did require IV morphine for pain today. Will renew for now. Reviewed CBC and BMP. Reviewed wound and blood culture.Has been on antibiotics preadmission. Unfortunately cultures have not been helpful. Continue ciprofloxacin, vancomycin. Risk of renal dysfunction with vancomycin, reassess renal function. Continue broad-spectrum IV antibiotics. Follow-up cultures. Continue to elevate. Reassess right lower extremity. Review with case management tomorrow. She would like to try to return home to continue IV antibiotics today. Purulent cellulitis with ulceration, purulent secretion. With underlying diabetes. Nonresolving, with failed outpatient treatment, has completed antibiotics prescribed during prior admission discharged on 08/08. With diabetes, risk of progression of infection, abscess, loss of limb. (2) Type 2 diabetes mellitus with obesity: Reviewed Accu-Cheks. Continue current treatment. Difficult to control blood glucose due to infection. Lantus 10 units twice daily. Will escalate depending on glucose. Continue sliding scale insulin. Monitor blood glucose. Plan Hypokalemia: Replaced. Reviewed potassium. Reviewed magnesium. Discomfort/fullness of the right ear: On exam clear tympanic membrane, no fluid, no bleeding, no signs of otitis media or externa, although there is some excoriation noted just slightly into the meatus, she seems to putting her fingers in her ears, conseled her to avoid scratching inside her ear with her fingernails. She and her mother verbalized understanding. HTN: Monitor BPs Bronchospasm Anxiety Mixed hyperlipidemia Cerebral palsied Neurodevelopmental disorder: mother who is also DPOA will be staying with her. Plan for the day: Appreciate CT leg done yesterday. Care discussed in detail with surgical team. As per surgical recommendation patient is at high risk of amputation because of extensive cellulitis. They recommend for superficial debridement followed by Unna boot dressing. Cannot go for deep debridement as that could expose tendons. MRSA swab pending. For now continue with IV vancomycin and meropenem. Plan to discharge in next 24 hours with aggressive wound care, home health and wound care follow-up as an outpatient on IV or ertapenem for next 10 days. Blood sugar stable. Continue with sliding scale and Lantus 20 units twice daily. Attestations 2 Medical Necessity Statement*: Requires further hospitalization for management of extensive right leg cellulitis requiring debridement and IV antibiotics while outpatient antibiotic and wound care is set up Diagnoses Cellulitis of leg, right L03.115 Type 2 diabetes mellitus with obesity E11.69; E66.9
[2023-08-20 16:50] LABS: Glucose Point of Care 226 mg/dL (70-110)
[2023-08-20] MEDS: enoxaparin 40 mg/0.4 mL Syringe SUBCUT (17:38)
[2023-08-20 21:13] LABS: Glucose Point of Care 277 mg/dL (70-110)
[2023-08-20] MEDS: insulin glargine 100 units/1 mL 20 UNIT SUBCUT (22:31)
[2023-08-21] MEDS: vancomycin 1,500 MG/300 ML PIGGYBACK 200 MG IV (00:15)
[2023-08-21] MEDS: meropenem 1,000 MG in sodium chloride 0.9% (plus) 50 ML 100 MG IV (01:55)
[2023-08-21 04:00] VITALS: BP 132/67; PULSE 83; RESP 18; TEMP 36.7; O2SAT 98
[2023-08-21 06:16] LABS: Basophils # 0.1 10^3/uL (0.0-0.1); Basophils % 0.8 %; Eosinophils # 0.1 10^3/uL (0.0-0.8); Eosinophils % 1.7 %; Hematocrit 29.5 % (36-47); Lymphocytes % 16.4 %; Mean Corpuscular HGB Conc 30.5 g/dL (30-55); Mean Corpuscular Hemoglobin 29.7 pg (27-33); Mean Corpuscular Volume 97.4 fl (85-98); Mean Platelet Volume 8.3 fL (7.4-10.4); Monocytes # 0.8 10^3/uL (0.2-0.9); Monocytes % 12.8 %; Neutrophils # 4.27 10^3/uL (1.8-7.7); Neutrophils % 67.2 %; Nucleated Red Blood Cells % 0 %; Platelet Count 368 10^3/cmm (157-399); Red Blood Count 3.03 10^6/uL (3.85-5.65); Red Cell Distribution Width 12.8 % (12.1-15.1); White Blood Count 6.35 10^3/uL (3.29-11.43)
[2023-08-21 06:36] LABS: Alanine Aminotransferase < 5 U/L (0-33); Albumin Level 2.3 g/dL (3.5-5.2); Alkaline Phosphatase 103 U/L (35-105); Anion Gap 12.5 (5-19); Aspartate Amino Transferase 7 U/L (0-32); Blood Urea Nitrogen 5 mg/dL (8-23); Calcium 8.4 mg/dL (8.5-10.5); Carbon Dioxide 27 mmol/L (22-29); Chloride 105 mmol/L (98-107); Globulin 3.1 g/dL (1.3-4.6); Glucose 225 mg/dL (65-115); Osmolality Calculated 294 mOsm/kg (285-295); Potassium 4.5 mmol/L (3.5-5.1); Sodium 140 mmol/L (136-145); Total Bilirubin 0.2 mg/dL (0.15-1.2); Total Protein 5.4 g/dL (6.6-8.7)
[2023-08-21 07:12] LABS: Glucose Point of Care 204 mg/dL (70-110)
[2023-08-21 08:00] VITALS: BP 132/62; PULSE 80; RESP 17; TEMP 36.8; O2SAT 95
[2023-08-21] MEDS: insulin lispro 100 unit/1 mL SUBCUT (08:53)
--- NOTE | 2023-08-21 10:05 | PM.DCS ---
Discharge Providers Date of Admission: 08/14/23 19:13 Date of Discharge: August 21, 2023 Attending Provider at Admission: Mayur Birmingham Attending Provider at Discharge: Eyal Ariza MD Primary Care Provider: MARILYN Ramirez Diagnoses at Discharge Discharge Diagnosis (1) Cellulitis of leg, right: Status: Acute (2) Type 2 diabetes mellitus with obesity: Status: Chronic Reason for Visit Reason for Visit: sores on right foot,pain Brief History: History as per HPI: Dhara Harvey is a 72 year old female returns with nonhealed cellulitis, purulent drainage from ulcerations, fissure on right lower leg above the ankle, erythema, swelling, warmth. No obvious fracture on x-ray and ER. Discharged on 08/08 has completed course of Augmentin and Levaquin yesterday. Blood sugars have been difficult to control with diabetes and course of infection. Hospital Course Hospital Course Patient was admitted to the hospital further evaluation and management of lower limb cellulitis. Surgery was consulted and necrotizing soft tissue infection was ruled out. Started on broad-spectrum antibiotics. Surgical recommendations were possibly orthopedic consultation for below-knee amputation but patient family declined and decision was made to continue with aggressive wound care and IV antibiotics. Patient underwent bedside superficial debridement and he was advised to have Unna boot dressing to facilitate healing. During hospitalization blood culture and wound culture remain negative. She has been discharged in hemodynamically stable condition with advised to follow-up with wound care clinic for aggressive debridement as an outpatient along with IV or ertapenem once daily for next 10 days. Last dose of IV antibiotic would be on 08/29/2023. Discharge details were discussed in detail with Ms. Dobson over the phone and she verbalized understanding. Physical Exam Narrative: Accompanied by mother. Const: COMMON NORMALS: patient oriented x3 and alert GENERAL APPEARANCE: not cooperative ORIENTATION/CONSCIOUSNESS: Yes awake HENMT: COMMON NORMALS: oropharynx normal OTHER: Right ear clear tympanic membrane, no fluid, no bleeding, no otitis externa, but some excoriation just slightly and from the entrance of the external auditory meatus. Similarly on the left side. Neck/C-Spine: COMMON NORMALS: no JVD Resp: COMMON NORMALS: normal respiratory effort and clear to auscultation bilaterally AUSCULTATION: clear to auscultation bilaterally Cardio: COMMON NORMALS: no JVD, regular rhythm, S1 normal heart sound present, S2 normal heart sound present and No murmurs present (Cardio) RHYTHM: regular rhythm HEART SOUNDS: S1 normal heart sound present and S2 normal heart sound present GI: COMMON NORMALS: Normal to inspection, nondistended, normoactive bowel sounds present, Soft to palpation and non-tender PALPATION: Yes Soft to palpation Extremity: COMMON NORMALS: no joint enlargement and no pedal edema NARRATIVE EXTREMITY EXAM: Decrease in swelling. Erythema, warmth 3/4 lower right leg above the ankle. Horizontal fissure with ulcerization, fissurization, eschar above the R ankle with ulcers. Some scaling of dry skin. Neuro: COMMON NORMALS: patient oriented x3 and moves all extremities SENSORIUM/ORIENTATION: Yes alert Psych: MOOD & AFFECT: Yes anxious Skin: COMMON NORMALS: no rashes or lesions noted GENERAL SKIN EXAM: no rashes or lesions noted Discharge Data Studies Completed and Pending Completed Studies During Hospitalization Category Date Time Status CT lower leg RT w con [id number] Routine Cat Scan 08/19/23 14:[address] lower leg RT w con [id number] Stat Cat Scan 08/14/23 19:31 Completed XR foot RT min 3V* [id number] Stat Exams 08/14/23 17:21 Completed Pending at discharge Category Date Time Status Blood Cultures ([facility]) Routine Lab 08/14/23 18:23 Results Blood Cultures ([facility]) Routine Lab 08/14/23 18:55 Results Radiology Impressions Foot X-Ray 08/14/23 17:21 IMPRESSION: 1. No cortical irregularity or medullary lucency to suggest osteomyelitis. 2. No fracture. Microbiology 08/15/23 06:00 Ankle - Drainage Gram Stain - Final 08/15/23 06:00 Ankle - Drainage Wound Culture - Final 08/14/23 18:55 Blood Blood Culture - Preliminary 08/14/23 18:23 Blood Blood Culture - Preliminary Laboratory Results WBC 6.35 10^3/uL (3.29-11.43) 08/21/23 05:59 RBC 3.03 10^6/uL (3.85-5.65) L 08/21/23 05:59 Hgb 9.00 g/dL (11.27-16.99) L 08/21/23 05:59 Hct 29.5 % (36-47) L 08/21/23 05:59 MCV 97.4 fl (85-98) 08/21/23 05:59 MCH 29.7 pg (27-33) 08/21/23 05:59 MCHC 30.5 g/dL (30-55) 08/21/23 05:59 RDW 12.8 % (12.1-15.1) 08/21/23 05:59 Plt Count 368 10^3/cmm (157-399) 08/21/23 05:59 MPV 8.3 fL (7.4-10.4) 08/21/23 05:59 Neut % (Auto) 67.2 % 08/21/23 05:59 Lymph % (Auto) 16.4 % 08/21/23 05:59 Tripp % (Auto) 12.8 % 08/21/23 05:59 Eos % (Auto) 1.7 % 08/21/23 05:59 Baso % (Auto) 0.8 % 08/21/23 05:59 Neut # (Auto) 4.27 10^3/uL (1.8-7.7) 08/21/23 05:59 Lymph # (Auto) 1.0 10^3/uL (0.8-4.8) 08/21/23 05:59 Tripp # (Auto) 0.8 10^3/uL (0.2-0.9) 08/21/23 05:59 Eos # (Auto) 0.1 10^3/uL (0.0-0.8) 08/21/23 05:59 Baso # (Auto) 0.1 10^3/uL (0.0-0.1) 08/21/23 05:59 Nucleated RBC % (auto) 0 % 08/21/23 05:59 Nucleated RBCs # 0.0 /100WBC 08/21/23 05:59 ESR 28 mm/hr (0-15) H 08/14/23 17:35 Sodium 140 mmol/L (136-145) 08/21/23 05:59 Potassium 4.5 mmol/L (3.5-5.1) 08/21/23 05:59 Chloride 105 mmol/L (98-107) 08/21/23 05:59 Carbon Dioxide 27 mmol/L (22-29) 08/21/23 05:59 Anion Gap 12.5 (5-19) 08/21/23 05:59 BUN 5 mg/dL (8-23) L 08/21/23 05:59 Creatinine 0.3 mg/dL (0.5-0.9) L 08/21/23 05:59 GFR Calculation Not Reportable 08/21/23 05:59 Glucose 225 mg/dL (65-115) H 08/21/23 05:59 POC Glucose 204 mg/dL (70-110) H 08/21/23 07:06 Calculated Osmolality 294 mOsm/kg (285-295) 08/21/23 05:59 Lactic Acid 2.0 mmol/L (0.5-2.2) 08/14/23 17:35 Calcium 8.4 mg/dL (8.5-10.5) L 08/21/23 05:59 Magnesium 2.0 mg/dL (1.7-2.3) 08/16/23 05:37 Total Bilirubin 0.2 mg/dL (0.15-1.2) 08/21/23 05:59 AST 7 U/L (0-32) 08/21/23 05:59 ALT < 5 U/L (0-33) 08/21/23 05:59 Alkaline Phosphatase 103 U/L (35-105) 08/21/23 05:59 C-Reactive Protein 104.6 mg/L (0.0-4.9) H 08/14/23 17:35 Total Protein 5.4 g/dL (6.6-8.7) L 08/21/23 05:59 Albumin 2.3 g/dL (3.5-5.2) L 08/21/23 05:59 Globulin 3.1 g/dL (1.3-4.6) 08/21/23 05:59 Vancomycin Trough 15.1 ug/mL (10-15) H 08/19/23 11:55 Vitals Last Vital Signs Temp 98.3 F 08/21/23 08:00 Pulse 80 08/21/23 08:00 Resp 17 08/21/23 08:00 BP 132/62 08/21/23 08:00 Pulse Ox 95 08/21/23 08:00 O2 Del Method Room Air 08/21/23 08:00 Discharge Plan Discharge Patient Disposition: Home Condition: Stable Prescriptions: Continued (DME) nebulizers Misc See Rx Instructions .ROUTE .MEDSUPPLY Qty: 1 0RF Rx Instructions: As directed (DME) FreeStyle Andreia 2 [place] Misc See Rx Instructions .ROUTE .MEDSUPPLY Qty: 1 0RF Rx Instructions: use 4-6 times day (DME) FreeStyle Andreia 2 Sensor Kit See Rx Instructions .ROUTE .MEDSUPPLY Qty: 2 11RF Rx Instructions: change every 14 days (DME) blood-glucose meter [Blood Glucose Monitoring] Kit See Rx Instructions .ROUTE .MEDSUPPLY Qty: 1 0RF Rx Instructions: As directed (DME) pen needle, diabetic [BD Ultra-Fine Micro Pen Needle] 32 gauge x 1/4 needle See Rx Instructions .ROUTE .MEDSUPPLY Qty: 50 0RF Rx Instructions: As directed (DME) lancets Misc See Rx Instructions .ROUTE .MEDSUPPLY Qty: 100 0RF Rx Instructions: As directed Changed insulin glargine [Lantus Solostar U-100 Insulin] 100 unit/mL (3 mL) insulin pen 10 unit SUBCUT BID Qty: 15 0RF insulin lispro [Humalog KwikPen Insulin] 100 unit/mL insulin pen See Protocol SUBCUT TID Qty: 15 0RF Protocol: Insulin Corrective High-Dose Regimen Condition: Fingerstick Blood Glucose Dose/Route: Insulin Units Condition: 141-180 mg/dl Dose/Route: 6 units/SQ Condition: 181-220 mg/dl Dose/Route: 8 units/SQ Condition: 221-260 mg/dl Dose/Route: 10 units/SQ Condition: 261-300 mg/dl Dose/Route: 12 units/SQ Condition: 301-350 mg/dl Dose/Route: 14 units/SQ Condition: 351-400 mg/dl Dose/Route: 16 units/SQ Condition: greater than 400 mg/dl Dose/Route: 18 units/SQ Discontinued amoxicillin-pot clavulanate 875-125 mg tablet 1 tab PO Q12H Qty: 10 0RF Discharge Orders: Discharge Order (Routine); Ordered 08/21/23 Ordered By: Eyal Ariza Other Ambulatory Orders: Miscellaneous Test (Routine) Timeframe: [id number] Location: Patient Preference Ordered By: Eyal Ariza Miscellaneous Procedure (Order) Location: None Selected Ordered By: Eyal Ariza Referrals: Dunia Brizuela FNP-C [Primary Care Provider] - 08/28/23 9:40 am Tim Wilson MD [Hospitalist] - 08/22/23 1:00 pm (This is your appointment to get your IV antibiotic infusion. It will continue daily through 08/29/23. ) [facility], [Staff Physician] - 4-7 days Discharge Diet: Diabetic Discharge Activity: Resume usual activity and Increase activity as tolerated Patient Instructions: Opioid Safety Activity Restrictions/Additional Instructions: You have an appointment @ 1:00 p.m. @ the [facility] on 08/22/23-08/29/23 to get your IV antibiotics. You will receive your antibiotic on the weekend (08/24 and 08/25) at Outpatient Surgery at 1:00 pm. Please call [phone] if you cannot make your appointment on the weekend. You will receive your antibiotic Saturday through Saturday at [facility]. Discharge Attestations Time Spent in Discharge Care*: greater than 30 min Specific Discharge Activities: educating and/or supporting family/caregiver, discussing with pcp/other providers, discussing with mental health case manager/social workers/dc planners, documenting/other paperwork and evaluating patient/reviewing data Status at Discharge: Cognitive status at discharge: moderately impaired cognition, Behavioral status at discharge: cooperative, Functional status at discharge: uses cane/walker, Overall status at discharge: patient is progressing back to baseline Quality Metrics Clinical Quality Measures [ No reported AMI, CVA or VTE this stay] Coding Level of Care Code 21829 Total time (in minutes) for Discharge: 60 Diagnoses Cellulitis of leg, right L03.115 Type 2 diabetes mellitus with obesity E11.69; E66.9
[2023-08-21 10:48] LABS: Glucose Point of Care 188 mg/dL (70-110)
--- NOTE | 2023-08-21 11:53 | PC.SOCIAL ---
IMM update pg 2 of IMM updated and reviewed w/ patient and her mother. Copy provided and copy dated, initialed and placed in chart.
[2023-08-21 13:45] VITALS: BP 132/62; PULSE 80; RESP 17; TEMP 36.8; O2SAT 95
== END 2023-08-21 13:45 | disposition home or self-care (01) | DRG 603 ==
LOC: ER 19:01 → MEDSURG 19:13
PROVIDERS: Admitting Provider Internal Medicine; Emergency Provider Emergency Medicine; PCP Nurse Practitioner; Visit Provider Student in an Organized Health Care Education/Training Program
DX: L03.115 Cellulitis of right lower limb (principal); E11.65 Type 2 diabetes mellitus with hyperglycemia; I10 Essential (primary) hypertension; E66.9 Obesity, unspecified; F41.9 Anxiety disorder, unspecified; E78.2 Mixed hyperlipidemia; G80.9 Cerebral palsy, unspecified; F89 Unspecified disorder of psychological development; Z79.4 Long term (current) use of insulin; Z68.31 Body mass index [BMI] 31.0-31.9, adult
CPT/HCPCS: 36415; 36416; 36569; 36573; 73630; 73701; 80048; 80053; 80202; 82962; 83605; 83735; 85025; 85651; 86140; 87040; 87070; 87075; 87205; 96365; 96372; 99285; C1751; J0744; J1650; J1815; J2060; J2185; J2270; J3370; J7050; J7120; Q9967

== ENCOUNTER 2023-08-28 13:00 | Oncology outpatient (recurring) (ONCR) | payer MEDICARE, OTHER, SELFPAY ==
[2023-08-22] MEDS: ertapenem 1,000 MG in sodium chloride 0.9% (plus) 100 ML 200 MG IV (13:11)
[2023-08-22 13:18] VITALS: BP 130/67; PULSE 96; RESP 16; TEMP 36.8; O2SAT 94
[2023-08-22 14:05] VITALS: BP 141/82; PULSE 65; RESP 18; TEMP 36.6; O2SAT 97
[2023-08-23 11:23] VITALS: BP 122/60; PULSE 96; RESP 18; TEMP 36.2; O2SAT 98
[2023-08-23] MEDS: ertapenem 1,000 MG in sodium chloride 0.9% (plus) 100 ML 200 MG IV (11:35)
[2023-08-24] MEDS: ertapenem 1,000 MG in sodium chloride 0.9% (plus) 100 ML 200 MG IV (13:06)
[2023-08-24 13:19] VITALS: BP 126/71; PULSE 102; RESP 16; TEMP 37.1; O2SAT 99
[2023-08-25] MEDS: ertapenem 1,000 MG in sodium chloride 0.9% (plus) 100 ML 200 MG IV (13:00)
[2023-08-26] MEDS: ertapenem 1,000 MG in sodium chloride 0.9% (plus) 100 ML 200 MG IV (13:38)
[2023-08-26 14:15] VITALS: BP 134/78; PULSE 85; RESP 16; TEMP 36.6; O2SAT 100
[2023-08-27 13:16] VITALS: BP 128/74; PULSE 76; RESP 17; TEMP 36.5; O2SAT 97
[2023-08-27] MEDS: ertapenem 1,000 MG in sodium chloride 0.9% (plus) 100 ML 200 MG IV (13:40)
[2023-08-27 14:18] VITALS: BP 128/71; PULSE 82; RESP 16; TEMP 36.6; O2SAT 94
[2023-08-28 13:45] VITALS: BP 117/71; PULSE 82; O2SAT 94
[2023-08-28] MEDS: ertapenem 1,000 MG in sodium chloride 0.9% (plus) 100 ML 200 MG IV (14:59)
== END 2023-08-28 23:59 | disposition home or self-care (01) ==
PROVIDERS: PCP Nurse Practitioner; Visit Provider Student in an Organized Health Care Education/Training Program
DX: Z53.9 Procedure and treatment not carried out, unspecified reason (principal); L03.115 Cellulitis of right lower limb
CPT/HCPCS: 11042; 11045; 96365; 99213; J1335; J1642

== ENCOUNTER 2023-08-30 11:00 | Oncology outpatient (recurring) (ONCR) | payer MEDICARE, OTHER, SELFPAY ==
[2023-08-29] MEDS: ertapenem 1,000 MG in sodium chloride 0.9% (plus) 100 ML 200 MG IV (14:18)
[2023-08-29 14:58] VITALS: BP 121/69; PULSE 94; RESP 16; TEMP 36.9; O2SAT 91
[2023-08-30] MEDS: ertapenem 1,000 MG in sodium chloride 0.9% (plus) 100 ML 200 MG IV (11:21)
[2023-08-30 11:25] VITALS: BP 130/78; PULSE 85; RESP 17; TEMP 36.3
== END 2023-09-26 23:59 | disposition home or self-care (01) ==
PROVIDERS: PCP Nurse Practitioner; Visit Provider Student in an Organized Health Care Education/Training Program
DX: L03.115 Cellulitis of right lower limb (principal); Z53.9 Procedure and treatment not carried out, unspecified reason
CPT/HCPCS: 96365; J1335; J1642

== ENCOUNTER → 2023-09-02 08:58 | Outpatient (BNVA) | payer MEDICARE, SELFPAY | PROVIDERS: PCP Nurse Practitioner; Visit Provider Nurse Practitioner Family | DX: I89.0 Lymphedema, not elsewhere classified (principal); E11.52 Type 2 diabetes mellitus with diabetic peripheral angiopathy with gangrene; E11.621 Type 2 diabetes mellitus with foot ulcer; L97.312 Non-pressure chronic ulcer of right ankle with fat layer exposed | CPT/HCPCS: 11042; A6446 ==

== ENCOUNTER 2023-09-03 09:38 | Outpatient (CLI) | payer MEDICARE, SELFPAY ==
--- NOTE | 2023-09-03 09:30 | USCV_ITS ---
Dhara Harvey Age: 72 Gender: F : 1950 Exam Date: 09/03/2023 09:51 Ordering Phys: Catalina Denton NP Technologist: CT Exam [place] [facility] [place] Indication: HISTORY: PROCEDURES: FINDINGS: Multiple echolucent areas in the subcutaneous tissue bilaterally The veins were found to be easily compressible with spontaneous blood flow. Non pulsatile flow pattern. CONCLUSIONS No evidence of DVT in the above-mentioned identifiable veins. No significant venous reflux was in the above-mentioned veins. Normal venous dimensions bilaterally Dr Delon Antoine MD FAC (Electronically Signed) Final Date: 16 September 2023 09:17 S
== END 2023-09-03 09:39 | disposition home or self-care (01) ==
LOC: RAD 09:38
PROVIDERS: PCP Nurse Practitioner; Visit Provider Nurse Practitioner Family
DX: E11.622 Type 2 diabetes mellitus with other skin ulcer (principal); L97.909 Non-pressure chronic ulcer of unspecified part of unspecified lower leg with unspecified severity
CPT/HCPCS: 93970

== ENCOUNTER 2023-09-05 11:53 | Outpatient (CLI) | payer MEDICARE, SELFPAY ==
--- NOTE | 2023-09-05 12:00 | USR_ITS ---
PROCEDURE INFORMATION: Exam: US Duplex Bilateral Lower Extremity Arteries Exam date and time: 09/05/2023 12:04 PM Age: 72 years old Clinical indication: Other: Non healing wound RT ankle/foot; Patient HX: Dm; Additional info: E11.622 - type 2 diabetes mellitus with other skin ulcer, need haider TECHNIQUE: Imaging protocol: Real-time ultrasound scan of the arteries of the bilateral lower extremities with 2-D rousseau scale, color Doppler flow and spectral waveform analysis. Images documented and saved. COMPARISON: [place] [id number] 08/06/2023 8:50 AM FINDINGS: Right common femoral artery: No evidence of hemodynamically significant stenosis or occlusion. Triphasic waveform. PSV: 125.3 cm/s. Right superficial femoral artery: No evidence of hemodynamically significant stenosis or occlusion. Triphasic waveform. Proximal PSV: 125.3 cm/s. Mid PSV: 117.7 cm/s. Distal PSV: 124.4 cm/s. Right popliteal artery: Monophasic waveform with elevated peak systolic velocity of 203.8 cm/s (63% greater than the distal superficial femoral peak systolic velocity). No evidence of occlusion. Right calf/foot arteries: No evidence of high-grade stenosis or occlusion. Right posterior tibial artery peak systolic velocity 63.6 cm/s with monophasic waveform. Right dorsalis pedis peak systolic velocity 79.5 cm/s with monophasic waveform. Left common femoral artery: No evidence of hemodynamically significant stenosis or occlusion. Triphasic waveform. PSV 73.8 cm/s. Left superficial femoral artery: No evidence of hemodynamically significant stenosis or occlusion. Triphasic waveform. Proximal PSV: 105 cm/s. Mid PSV: 70.5 cm/s. Distal PSV: 82 cm/s. Left popliteal artery: No evidence of hemodynamically significant stenosis or occlusion. Triphasic waveform. PSV 96.8 cm/s. Left calf/foot arteries: No evidence of hemodynamically significant stenosis or occlusion. Left posterior tibial artery peak systolic velocity 39.1 cm/s with monophasic waveform. Left dorsalis pedis peak systolic velocity 63.7 cm/s with triphasic waveform. Right HAIDER 0.7 Left HAIDER 0.8 US/[place] [id number] IMPRESSION: 1. Moderate stenosis of the right popliteal artery. No evidence of occlusion. Consider vascular evaluation and correlation with CT angiography. 2. Right HAIDER 0.7. 3. No evidence of hemodynamically significant stenosis in the left lower extremity. 4. Left HAIDER 0.8.
== END 2023-09-05 11:54 | disposition home or self-care (01) ==
LOC: RAD 11:54
PROVIDERS: PCP Nurse Practitioner; Visit Provider Nurse Practitioner Family
DX: E11.622 Type 2 diabetes mellitus with other skin ulcer (principal); L97.319 Non-pressure chronic ulcer of right ankle with unspecified severity; L97.519 Non-pressure chronic ulcer of other part of right foot with unspecified severity; I70.201 Unspecified atherosclerosis of native arteries of extremities, right leg
CPT/HCPCS: 93925

== ENCOUNTER → 2023-09-09 09:06 | Outpatient (BNVA) | payer MEDICARE, SELFPAY | PROVIDERS: PCP Nurse Practitioner; Visit Provider Nurse Practitioner Family | DX: I89.0 Lymphedema, not elsewhere classified (principal); E11.52 Type 2 diabetes mellitus with diabetic peripheral angiopathy with gangrene; E11.621 Type 2 diabetes mellitus with foot ulcer; L97.312 Non-pressure chronic ulcer of right ankle with fat layer exposed | CPT/HCPCS: 11042; A6210 ==

== ENCOUNTER → 2023-09-16 10:01 | Outpatient (BNVA) | payer MEDICARE, SELFPAY | PROVIDERS: PCP Nurse Practitioner; Visit Provider Nurse Practitioner Family | DX: I89.0 Lymphedema, not elsewhere classified (principal); E11.52 Type 2 diabetes mellitus with diabetic peripheral angiopathy with gangrene; E11.621 Type 2 diabetes mellitus with foot ulcer; L97.312 Non-pressure chronic ulcer of right ankle with fat layer exposed | CPT/HCPCS: 11042; 97597; A6210 ==

== ENCOUNTER → 2023-09-18 10:57 | Outpatient (BNVA) | payer MEDICARE, SELFPAY | PROVIDERS: PCP Nurse Practitioner; Visit Provider Thoracic Surgery (Cardiothoracic Vascular Surgery) | DX: I89.0 Lymphedema, not elsewhere classified (principal); L97.311 Non-pressure chronic ulcer of right ankle limited to breakdown of skin | CPT/HCPCS: 29581 ==

== ENCOUNTER → 2023-09-23 09:04 | Outpatient (BNVA) | payer MEDICARE, SELFPAY | PROVIDERS: PCP Nurse Practitioner; Visit Provider Nurse Practitioner Family | DX: Z09 Encounter for follow-up examination after completed treatment for conditions other than malignant neoplasm (principal); Z87.2 Personal history of diseases of the skin and subcutaneous tissue | CPT/HCPCS: 99212 ==

== ENCOUNTER → 2023-09-25 14:28 | Outpatient (BNVA) | payer MEDICARE, SELFPAY | PROVIDERS: PCP Nurse Practitioner; Visit Provider Nurse Practitioner | DX: E11.65 Type 2 diabetes mellitus with hyperglycemia (principal); Z79.4 Long term (current) use of insulin | CPT/HCPCS: 80053; 85025 ==

== ENCOUNTER 2023-10-10 12:04 | Emergency (ER) | payer MEDICARE, SELFPAY ==
[2023-10-10 12:19] VITALS: BP 192/92; PULSE 100; RESP 18; TEMP 36.6; O2SAT 98; BMI 32.3
--- NOTE | 2023-10-10 13:12 | ED_ITS ---
HPI - Eye Problem 2 General: Chief complaint: Eye Problems Stated complaint: sent by , right eye pains Time Seen by Provider: 10/10/23 13:05 History of Present Illness: 72-year-old female comes in today for co mplaints no movement in the right eye. Patient for the last 2 days has kept the right eye closed and has not noticed any extraocular movements of the eye. 2 weeks ago patient was seen at the primary care provider's office for some abnormal extraocular movement of both eyes. At that time a appointment was made with the hydro excavation operator. Patient has yet to be seen by the hydro excavation operator and family brought patient back to primary care office today due to the change in condition. Patient has cerebral palsy, intellectual disability, and diabetes mellitus. Review of Systems 2 General: Reports: 10 or more systems reviewed and unremarkable except in HPI and below PFSH ED 2 PFSH: Medical History Diabetes mellitus with hyperglycemia, with long-term current use of insulin Essential (primary) hypertension Type 2 diabetes mellitus with obesity Bronchospasm Anxiety Mixed hyperlipidemia Cerebral palsied Neurodevelopmental disorder Surgical History History of hysterectomy Family History Brother Diabetes Hypertension Mother Hypertension Denies family history of Bleeding disorder Social History Smoking and tobacco/nicotine status: never used tobacco/nicotine Second hand smoke exposure: No Alcohol intake: never Substance/Drug Use: never Adopted: No Caregiver/support person: Yes Lives independently: No Household members: family Housing: House Marital status: Single Number of children: 0 service: No Current occupational status: disabled Pets and animals: Yes Do you think of yourself as: Straight/Heterosexual Current gender identity: Female Physical Exam 2 Const: COMMON NORMALS: alert HENMT: COMMON NORMALS: normocephalic HEAD & SCALP: normocephalic Eye: EYELID: eyelids normal and other (No voluntary movement of the right eyelids) EOM: Yes movement deficit (Right eye is stationary. Patient is unable to open eyelids.) Resp: COMMON NORMALS: normal respiratory effort and clear to auscultation bilaterally AUSCULTATION: clear to auscultation bilaterally Cardio: COMMON NORMALS: regular rate and regular rhythm RATE: regular rate RHYTHM: regular rhythm GI: COMMON NORMALS: Soft to palpation PALPATION: Yes Soft to palpation Back/Pelvis: COMMON NORMALS: thoracic and lumbar spine normal to inspection Extremity: COMMON NORMALS: full ROM Neuro: SENSORIUM/ORIENTATION: Yes alert Skin: COMMON NORMALS: turgor normal GENERAL SKIN EXAM: turgor normal Course 2 Vital Signs: Vital signs: Vital Signs Temperature 97.8 F 10/10/23 12:19 Pulse Rate 100 10/10/23 12:19 Respiratory Rate 18 10/10/23 12:19 Blood Pressure 192/92 10/10/23 12:19 Pulse Oximetry 98 10/10/23 12:19 Oxygen Delivery Me thod Room Air 10/10/23 12:19 MDM - Eye Problem Medical Decision Making 72-year-old female comes in today with complaints of no movement of the right eye. Exam notes no extraocular movement of the right eye and no movement of the eyelids. Pupil is fixed in the right eye. Left eye patient has good extraocular movement and vision. Differential diagnosis includes but not limited to mass, CVA, orbital cellulitis. CT of the brain and orbits indicated no abnormality except a possible venous malformation in the frontal lobe that may need further evaluation with a MRI. Orbital CT indicated no significant abnormalities of the optic nerve or muscles of the eye. CBC and CMP were unremarkable. Sed rate was mildly elevated at 27. I added a thyroid stimulating hormone to patient's labs for further evaluation to rule out any thyroid involvement with extraocular movement of the eye. Case management will set patient up with ophthalmology referral. Family agreed to plan and need for follow-up. I offered to call but patient was ready to leave and family agreed with referral. Lab Data 10/10/23 13:25 10/10/23 13:25 Laboratory Results WBC 6.98 10^3/uL (3.29-11.43) 10/10/23 13: RBC 4.24 10^6/uL (3.85-5.65) 10/10/23 13: Hgb 12.00 g/dL (11.27-16.99) 10/10/23 13:25 Hct 38.4 % (36-47) 10/10/23 13:25 MCV 90.6 fl (85-98) 10/10/23 13:25 MCH 28.3 pg (27-33) 10/10/23 13:25 MCHC 31.3 g/dL (30-55) 10/10/23 13:25 RDW 13.7 % (12.1-15.1) 10/10/23 13:25 Plt Count 243 10^3/cmm (157-399) 10/10/23 13:25 MPV 8.8 fL (7.4-10.4) 10/10/23 13:25 Neut % (Auto) 63.6 % 10/10/23 13:25 Lymph % (Auto) 24.4 % 10/10/23 13:25 [place] % (Auto) 9.5 % 10/10/23 13:25 Eos % (Auto) 1.7 % 10/10/23 13:25 Baso % (Auto) 0.4 % 10/10/23 13:25 Neut # (Auto) 4.44 10^3/uL (1.8-7.7) 10/10/23 13:25 Lymph # (Auto) 1.7 10^3/uL (0.8-4.8) 10/10/23 13:25 [place] # (Auto) 0.7 10^3/uL (0.2-0.9) 10/10/23 13:25 Eos # (Auto) 0.1 10^3/uL (0.0-0.8) 10/10/23 13:25 Baso # (Auto) 0.0 10^3/uL (0.0-0.1) 10/10/23 13:25 Nucleated RBC % (auto) 0 % 10/10/23 13:25 Nucleated RBCs # 0.0 /100WBC 10/10/23 13:25 ESR 27 mm/hr (0-15) H 10/10/23 13:25 PT 13.20 SECONDS (12.1-14.9) 10/10/23 13:25 INR 0.97 (0.8-1.2) 10/10/23 13:25 APTT 29.4 SECONDS (23.9-36.7) 10/10/23 13:25 Sodium 144 mmol/L (136-145) 10/10/23 13:25 Potassium 4.1 mmol/L (3.5-5.1) 10/10/23 13:25 Chloride 106 mmol/L (98-107) 10/10/23 13:25 Carbon Dioxide 28 mmol/L (22-29) 10/10/23 13:25 Anion Gap 14.1 (5-19) 10/10/23 13:25 BUN 14 mg/dL (8-23) 10/10/23 13:25 Creatinine 0.5 mg/dL (0.5-0.9) 10/10/23 13:25 GFR Calculation Not Reportable 10/10/23 13:25 Glucose 98 mg/dL (65-115) 10/10/23 13:25 Calculated Osmolality 298 mOsm/kg (285-295) H 10/10/23 13:25 Calcium 8.9 mg/dL (8.5-10.5) 10/10/23 13:25 Total Bilirubin 0.2 mg/dL (0.15-1.2) 10/10/23 13:25 AST 11 U/L (0-32) 10/10/23 13:25 ALT 6 U/L (0-33) 10/10/23 13:25 Alkaline Phosphatase 75 U/L (35-105) 10/10/23 13:25 C-Reactive Protein 3.0 mg/L (0.0-4.9) 10/10/23 13:25 Total Protein 7.1 g/dL (6.6-8.7) 10/10/23 13:25 Albumin 3.6 g/dL (3.5-5.2) 10/10/23 13:25 Globulin 3.5 g/dL (1.3-4.6) 10/10/23 13:25 All radiology interpretation(s) finalized by discharge Discharge Plan Discharge Patient Disposition: Home Clinical Impression: Abnormal eye movements Condition: Stable Prescriptions: No Action (DME) nebulizers Misc See Rx Instructions .ROUTE .MEDSUPPLY Qty: 1 0RF Rx Instructions: As directed (DME) DME: Walker Unit See Rx Instructions .ROUTE .MEDSUPPLY Qty: 1 0RF Rx Instructions: Code E0143 and E0156 walker 4 wheels and seat (DME) FreeStyle Andreia 2 [place] Misc See Rx Instructions .ROUTE .MEDSUPPLY Qty: 1 0RF Rx Instructions: use 4-6 times day (DME) FreeStyle Andreia 2 Sensor Kit See Rx Instructions .ROUTE .MEDSUPPLY Qty: 2 11RF Rx Instructions: change every 14 days insulin glargine [Lantus Solostar U-100 Insulin] 100 unit/mL (3 mL) insulin pen 45 unit SUBCUT BID Qty: 30 2RF insulin lispro [Humalog KwikPen Insulin] 100 unit/mL insulin pen See Rx Instructions SUBCUT TID Qty: 30 2RF Rx Instructions: 140-180=6U 181-220=8U 221-260=10U 261-300=12U 301-350=14U 351-400=16U >401=18U (DME) blood-glucose meter [Blood Glucose Monitoring] Kit See Rx Instructions .ROUTE .MEDSUPPLY Qty: 1 0RF Rx Instructions: As directed (DME) pen needle, diabetic [BD Ultra-Fine Micro Pen Needle] 32 gauge x 1/4 needle See Rx Instructions .ROUTE .MEDSUPPLY Qty: 50 0RF Rx Instructions: As directed (DME) lancets Misc See Rx Instructions .ROUTE .MEDSUPPLY Qty: 100 0RF Rx Instructions: As directed ibuprofen 200 mg Tablet 400 mg PO Q6H PRN (Reason: Pain) Discharge Orders: Discharge ED (Routine); Ordered 10/10/23 Ordered By: Dirk Salvador Referrals: Dunia Brizuela, [facility] [Primary Care Provider] - Discharge Diet: Usual diet Discharge Activity: Increase activity as tolerated Activity Restrictions/Additional Instructions: Follow-up with primary care as needed. Return to ER for new concerns. Case management will contact you regarding follow-up appointment with eye cardiac care nurse. Coding Level of Care Code ED Cheese Production Supervisor for Jose Hassan
--- NOTE | 2023-10-10 13:13 | CT_ITS ---
WS: [id number] CT ORBITS WITH CONTRAST. HISTORY: reduced eom right eye Technique: All CT scans at [facility] use at least one of these dose optimization techniques: automated exposure control; mA and/or kV adjustment per patient size (includes targeted exams where dose is matched to clinical indication); or iterative reconstruction. DLP: 1242.28 mGy.cm COMPARISON: None available. Facial bones are intact. No fractures. Symmetric appearance of the orbits and globes. The extra-axial muscles are symmetric bilaterally. The optic nerves are similar size. No inflammation in the retro-o rbital fat. No proptosis. No soft tissue mass. LEFT sphenoid sinus mucoperiosteal thickening. No air-fluid levels. Scattered plaque in the intracran ial carotid arteries. No areas of abnormal enhancement. No abscess or mass. IMPRESSION: 1. No orbital mass or inflammation. 2. Symmetric appearance of the extraocular muscles. 3. Mild atherosclerosis intracranial carotid arteries.
--- NOTE | 2023-10-10 13:13 | CT_ITS ---
WS: [id number] CT HEAD NONCONTRAST HISTORY: reduced EOM right eye TECHNIQUE: Contiguous axial imaging performed through the brain in 2.5 mm imaging. Bone and soft tiss ue windows. Sagittal and coronal reformats reviewed. All CT scans at [facility] use at least one of these dose optimization techniques: automated exposure control; mA and/or kV adjustment per pa tient size (includes targeted exams where dose is matched to clinical indication); or iterative recon struction. DLP: 1242.28 mGy.cm COMPARISON: None available. Linear areas of increased density in the LEFT supratentorial posterior frontal lobe white matter. Kim ear configuration of increased density. Favor this is probably a venous angioma and may be partially calcified. Less likely blood. No prior studies for comparison. Otherwise there is mild atrophy and sm all vessel ischemic disease. No prior infarct. Ventricles: Normal size with no hydrocephalus. No inferior displacement of the cerebellar tonsils. Paranasal sinuses: Marked mucoperiosteal thickening in the LEFT sphenoid sinus. Mastoid air cells: Well pneumatized. Calvarium and scalp: Skull is intact with no soft tissue edema or swelling. IMPRESSION: 1. Linear serpiginous area of increased density in the supratentorial LEFT frontal lobe. 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 No prior studies for comparison. Recommend follow-up MRI brain with and without contrast. 2. Mild atrophy and small vessel ischemic disease.
[2023-10-10 13:30] LABS: Basophils % 0.4 %; Eosinophils # 0.1 10^3/uL (0.0-0.8); Eosinophils % 1.7 %; Hematocrit 38.4 % (36-47); Lymphocytes # 1.7 10^3/uL (0.8-4.8); Lymphocytes % 24.4 %; Mean Corpuscular HGB Conc 31.3 g/dL (30-55); Mean Corpuscular Hemoglobin 28.3 pg (27-33); Mean Corpuscular Volume 90.6 fl (85-98); Mean Platelet Volume 8.8 fL (7.4-10.4); Monocytes # 0.7 10^3/uL (0.2-0.9); Monocytes % 9.5 %; Neutrophils # 4.44 10^3/uL (1.8-7.7); Neutrophils % 63.6 %; Nucleated Red Blood Cells % 0 %; Platelet Count 243 10^3/cmm (157-399); Red Blood Count 4.24 10^6/uL (3.85-5.65); Red Cell Distribution Width 13.7 % (12.1-15.1); White Blood Count 6.98 10^3/uL (3.29-11.43)
[2023-10-10 13:32] LABS: Erythrocyte Sedimentation Rate 27 mm/hr (0-15)
[2023-10-10 13:42] LABS: INR 0.97 (0.8-1.2)
[2023-10-10 13:43] LABS: Partial Thromboplastin Time 29.4 SECONDS (23.9-36.7)
[2023-10-10 13:53] LABS: Alanine Aminotransferase 6 U/L (0-33); Albumin Level 3.6 g/dL (3.5-5.2); Alkaline Phosphatase 75 U/L (35-105); Anion Gap 14.1 (5-19); Aspartate Amino Transferase 11 U/L (0-32); Blood Urea Nitrogen 14 mg/dL (8-23); Calcium 8.9 mg/dL (8.5-10.5); Carbon Dioxide 28 mmol/L (22-29); Chloride 106 mmol/L (98-107); Creatinine Clr Calc Pharmacy 61.4728; Globulin 3.5 g/dL (1.3-4.6); Glucose 98 mg/dL (65-115); Osmolality Calculated 298 mOsm/kg (285-295); Potassium 4.1 mmol/L (3.5-5.1); Sodium 144 mmol/L (136-145); Total Bilirubin 0.2 mg/dL (0.15-1.2); Total Protein 7.1 g/dL (6.6-8.7)
[2023-10-10] MEDS: iohexol 350 mg/mL 500 mL Btl (per mL) IV (14:35)
[2023-10-10 15:48] VITALS: BP 166/80; PULSE 88; O2SAT 96
[2023-10-10 15:53] LABS: Thyroid Stimulating Hormone 1.28 uIU/mL (0.27-4.20)
--- NOTE | 2023-10-14 13:09 | DCPLANNER ---
I printed this patients chart off on 10/14/23 and faxed the referral to [facility] in [place] on 10/14/23 at 1309. Fax number is [phone] and phone number to clinic is [phone]
== END 2023-10-10 15:52 | disposition home or self-care (01) ==
PROVIDERS: Emergency Provider Nurse Practitioner Family; PCP Nurse Practitioner
DX: G25.89 Other specified extrapyramidal and movement disorders (principal); Z79.4 Long term (current) use of insulin; E11.9 Type 2 diabetes mellitus without complications; I10 Essential (primary) hypertension; E78.2 Mixed hyperlipidemia; G80.9 Cerebral palsy, unspecified
CPT/HCPCS: 36415; 70450; 70481; 80053; 84443; 85025; 85610; 85651; 85730; 86140; 99285; Q9967

== ENCOUNTER 2023-10-29 09:43 | Oncology outpatient (recurring) (ONCR) | payer MEDICARE, SELFPAY ==
--- NOTE | 2023-10-29 09:50 | MR_ITS ---
WS: [email or web address] MRI ORBITS WITH AND WITHOUT CONTRAST. COMPARISON: Prior CT head and orbits 10/10/2023 Multiplanar, multisequence imaging is performed with and without contrast. MultiHance 17 mL. The RIGHT optic nerve is very mildly enlarged as compared to the LEFT and there is also enhancement o f the RIGHT optic nerve sheath. Enhancement continues into the optic canal. There is also increased f luid surrounding the RIGHT optic nerve as compared to the LEFT. Intracanalicular segments appear norm al. There is dense calcified plaque noted in the intracranial carotid arteries associated with the op tic canals. No definite aneurysm is identified. No significant mass and no impingement of any signifi cance is identified. Mild atrophy throughout the remaining brain. No masses are identified. Normal appearance of the extra ocular muscles. Muscles are symmetric bilaterally. No edema or mass effect. Normal globes and lacrima l glands. Normal pituitary gland. Mild to moderate small vessel ischemic type changes throughout the white matter. Mucoperiosteal thickening LEFT sphenoid and ethmoid air cells. Normal diffusion imaging. No hemorrhag e. IMPRESSION: 1. RIGHT optic nerve is enlarged with peripheral nerve sheath enhancement. Enhancement continues int o the optic canal. No discrete mass identified. There is no identifiable aneurysm or soft tissue mass associated with the cranial nerves that is identified. Consider various etiologies of optic neuritis . This may be infectious/inflammatory or noninfectious. 2. Normal LEFT optic nerve.
[2023-10-29] MEDS: gadobenate dimeglumine 20 mL vial IV (10:55)
== END 2023-11-26 23:59 | disposition home or self-care (01) ==
LOC: RAD 09:45 → ONCMED 11-22 09:57
PROVIDERS: PCP Nurse Practitioner; Visit Provider Student in an Organized Health Care Education/Training Program
DX: H49.00 Third [oculomotor] nerve palsy, unspecified eye (principal)
CPT/HCPCS: 70543; A9577

== ENCOUNTER 2023-11-01 11:14 | Outpatient (CLI) | payer MEDICARE, SELFPAY ==
--- NOTE | 2023-11-01 11:17 | XR_ITS ---
WS: [email or web address] Examination: XR cervical spine 3V* [id number] Reason for Exam: E11.65 - Type 2 diabetes mellitus with hyperglycemia Date: November 01, 2023 Comparison: None. Findings: The BRIGITTE and the C1-2 relationship are intact. There is no prevertebral swelling. There is no anterior wedging or compression. There is no subluxation Mid and lower cervical level degenerative changes are noted with disc space narrowing and osteophyte formation. Carotid vascular calcification is suspected. Carotid duplex imaging is recommended. Impression: Moderate to greater mid and lower cervical degenerative changes are noted without compression or subl uxation.
--- NOTE | 2023-11-01 11:17 | XR_ITS ---
WS: [email or web address] Examination: XR abdomen 1V* [id number] Reason for Exam: E11.65 - Type 2 diabetes mellitus with hyperglycemia Date: November 01, 2023 Comparison: None. Findings: There is increased stool throughout the colon. No abnormally distended loops of small bowel are ident ified. Numerous surgical clips are identified overlying the pelvis. Mid and lower lumbar degenerative changes are present. Impression: There is increased stool throughout the colon.
--- NOTE | 2023-11-01 11:17 | XR_ITS ---
WS: [email or web address] Examination: XR lumbar spine 2-3V* [id number] Reason for Exam: E11.65 - Type 2 diabetes mellitus with hyperglycemia Date: November 01, 2023 Comparison: None. Findings: The pedicles are intact. The bone density is mildly diminished There is no lumbar wedging or compression There is grade 1 anterolisthesis at L4-5 Severe degenerative changes of the discs are noted at L3-4, L4-5, and L5-S1. Prominent L5-S1 anterior osteophytes are noted. There is facet arthropathy in the mid and lower lumbar spine Impression: There is anterolisthesis at L4-5 with significant degenerative disc disease involving the mid to lowe r lumbar spine.
--- NOTE | 2023-11-01 11:17 | XR_ITS ---
WS: [email or web address] Examination: XR thoracic spine 3V* [id number] Reason for Exam: E11.65 - Type 2 diabetes mellitus with hyperglycemia Date: November 01, 2023 Comparison: None. Findings: The pedicles are intact. Bone density is mildly diminished There is no wedging or compression. There is no subluxation Dominant mid thoracic disc space narrowing and hypertrophic changes are noted with osteophyte formati on. There is a right apical density noted. A mass cannot be excluded. Impression: There are hypertrophic changes of the thoracic spine without compression or subluxation. There is right apical opacity. I recommend PA and lateral imaging of the chest for further evaluation to exclude a possible mass.
[2023-11-01 13:45] LABS: Add Urine Microscopic? YES; Bilirubin Urine Neg (Negative); Blood Urine Neg (Negative); Glucose Urine UA 1+ (Normal); Ketones Urine Negative (Negative); Leukocyte Esterase Urine 1+ (Negative); Nitrate Urine Negative (Negative); Protein Urine Neg (Negative); Urine Appearance Clear (CLEAR); Urine Color Yellow (Yellow); Urobilinogen Urine Neg (Negative); pH Urine 5 (5-7)
[2023-11-01 13:46] LABS: RBC Urine 0-4 /hpf (0-2)
[2023-11-01 13:47] LABS: Add Urine Culture? No; Bacteria Urine TRACE /hpf; Calcium Oxalate Crystals Urine 25-40 /hpf; Mucus Urine 1+ /hpf; Squamous Epithelial Cell Urine 0-4 /hpf (0-5)
== END 2023-11-01 11:15 | disposition home or self-care (01) ==
PROVIDERS: PCP Nurse Practitioner; Visit Provider Nurse Practitioner
DX: M47.812 Spondylosis without myelopathy or radiculopathy, cervical region (principal); M47.816 Spondylosis without myelopathy or radiculopathy, lumbar region; M51.36 Other intervertebral disc degeneration, lumbar region; E11.65 Type 2 diabetes mellitus with hyperglycemia; M54.9 Dorsalgia, unspecified; M25.50 Pain in unspecified joint; Z79.4 Long term (current) use of insulin
CPT/HCPCS: 72040; 72072; 72100; 74018; 81001

== ENCOUNTER → 2023-11-13 14:37 | Outpatient (BNVA) | payer MEDICARE, SELFPAY | PROVIDERS: PCP Nurse Practitioner; Visit Provider Nurse Practitioner | DX: H54.61 Unqualified visual loss, right eye, normal vision left eye (principal); E11.65 Type 2 diabetes mellitus with hyperglycemia; Z79.4 Long term (current) use of insulin; H00.019 Hordeolum externum unspecified eye, unspecified eyelid; E11.9 Type 2 diabetes mellitus without complications | CPT/HCPCS: 80053; 82607; 83036 ==

== ENCOUNTER → 2024-04-17 11:32 | Outpatient (BNVA) | payer MEDICARE, MEDICAID, SELFPAY | PROVIDERS: PCP Nurse Practitioner; Visit Provider Nurse Practitioner | DX: Z79.4 Long term (current) use of insulin (principal); E11.9 Type 2 diabetes mellitus without complications; E11.65 Type 2 diabetes mellitus with hyperglycemia | CPT/HCPCS: 80053; 80061; 82607; 83036; 84443 ==

== ENCOUNTER → 2025-02-22 10:49 | Outpatient (BNVA) | payer MEDICARE, MEDICAID, SELFPAY | PROVIDERS: PCP Nurse Practitioner; Visit Provider Nurse Practitioner | DX: N39.46 Mixed incontinence (principal) | CPT/HCPCS: 81000; 87077; 87086 ==

== ENCOUNTER → 2025-04-26 11:57 | Outpatient (BNVA) | payer MEDICARE, MEDICAID, SELFPAY | PROVIDERS: PCP Nurse Practitioner; Visit Provider Nurse Practitioner | DX: E11.65 Type 2 diabetes mellitus with hyperglycemia (principal); Z79.4 Long term (current) use of insulin | CPT/HCPCS: 82043 ==

== ENCOUNTER → 2025-05-18 13:37 | Outpatient (BNVA) | payer MEDICARE, MEDICAID, SELFPAY | PROVIDERS: PCP Nurse Practitioner; Visit Provider Thoracic Surgery (Cardiothoracic Vascular Surgery) | DX: I96 Gangrene, not elsewhere classified (principal); L89.313 Pressure ulcer of right buttock, stage 3 | CPT/HCPCS: 11042; 99213; A6210; A6213 ==

== ENCOUNTER → 2025-06-03 13:31 | Outpatient (BNVA) | payer MEDICARE, MEDICAID, SELFPAY | PROVIDERS: PCP Nurse Practitioner; Visit Provider Thoracic Surgery (Cardiothoracic Vascular Surgery) | DX: I96 Gangrene, not elsewhere classified (principal); L89.313 Pressure ulcer of right buttock, stage 3 | CPT/HCPCS: 97597 ==

== ENCOUNTER → 2025-06-10 14:17 | Outpatient (BNVA) | payer MEDICARE, MEDICAID, SELFPAY | PROVIDERS: PCP Nurse Practitioner; Visit Provider Thoracic Surgery (Cardiothoracic Vascular Surgery) | DX: I96 Gangrene, not elsewhere classified (principal); L89.313 Pressure ulcer of right buttock, stage 3 | CPT/HCPCS: 97597; A6219 ==

== ENCOUNTER → 2025-06-30 11:20 | Outpatient (BNVA) | payer MEDICARE, MEDICAID, SELFPAY | PROVIDERS: PCP Nurse Practitioner; Visit Provider Thoracic Surgery (Cardiothoracic Vascular Surgery) | DX: I96 Gangrene, not elsewhere classified (principal); L89.313 Pressure ulcer of right buttock, stage 3 ==